=== PATIENT | female | born 1945 ===

== ENCOUNTER 2019-09-26 11:15 | Inpatient (IN) ==
[2019-09-26 14:55] LABS: Albumin 3.4 G/DL (3.4-5.0); Bilirubin,Total 0.4 MG/DL (0.2-1.0); Calcium 8.6 MG/DL (8.5-10.1); Total Protein 7.7 G/DL (6.4-8.3)
[2019-09-26] MEDS ORDERED: GLUCAGON 1 MG VIAL IM PRN (15:59)
[2019-09-26] MEDS ORDERED: ONDANSETRON 4 MG/2 ML VIAL IV PRN (15:59)
[2019-09-26] MEDS ORDERED: DEXTROSE 5% NACL 0.45% 1,000 ML IV SCH (16:00)
[2019-09-26] MEDS ORDERED: SODIUM POLYSTYRENE SULFATE 15 GM/60 ML BOTTLE PO STA (16:14)
[2019-09-26 16:26] LABS: Bilirubin,Urine Negative (Negative); Blood, Urine Negative (Negative); Glucose,Urine (UA) Negative (Negative); Ketones,Urine Negative (Negative); Mucus,Urine Occasional /LPF (Occasional); Nitrite,Urine Negative (Negative); Protein,Urine Negative; RBC,Urine 1 /HPF (0-4); Squamous Epithelial Cell,Urine Occasional /HPF (0-10); Urine Appearance CLEAR (Clear); Urine Color Yellow (Yellow); Urine Specific Gravity 1.016 (1.001-1.035); WBC,Urine 2 /HPF (0-6)
[2019-09-26 16:57] LABS: Troponin I 0.988 NG/ML (0.00-0.045)
[2019-09-26] MEDS: ASPIRIN EC 325 MG TABLET PO SCH (18:15)
[2019-09-26] MEDS: SODIUM BICARB INJ 50 MEQ in DEXTROSE 5% NACL 0.45% 1,000 ML IV SCH (18:45)
[2019-09-27 05:16] LABS: Basophils % 0.3 % (0.0-0.8); Eosinophils % 0.3 % (0.00-10.9); Hematocrit 34.1 VOL% (35.7-47.0); Hemoglobin 10.9 GM/DL (12.0-16.0); Immature Granulocytes % 0.3 %; Immature Granulocytes Absolute 0.01 #; Lymphocytes # 1.3 10*3/uL (1.4-4.0); Lymphocytes % 41.1 % (21.3-54.2); Mean Corpuscular Volume 91.7 FL (87-102); Mean Platelet Volume 11.6 FL (9.6-12.0); Monocytes % 13.9 % (1.7-12.7); Neutrophils % 44.1 % (38.7-73.9); Platelet Count 146 T/CUMM (130-400); Red Blood Count 3.72 MC/CUMM (3.8-5.5); Red Cell Distribution Width 12.9 % (9.3-17.3); White Blood Count 3.2 T/CUMM (4-12)
[2019-09-27 05:39] LABS: Ferritin 628.2 ng/ml (8-252)
[2019-09-27 05:43] LABS: Risk Ratio 4.29; VLDL CHOLESTEROL 26.6 MG/DL
[2019-09-27] MEDS: SODIUM BICARB INJ 50 MEQ in DEXTROSE 5% NACL 0.45% 1,000 ML IV SCH ×2 (05:45→16:19)
[2019-09-27 05:53] LABS: Calcium 8.3 MG/DL (8.5-10.1); Osmolality,Calculated 289.8 MOS/KG (273-304)
[2019-09-27 06:06] LABS: INR 1.2; PT Patient Result 12.5 SECS (9.8-11.9)
[2019-09-27 08:19] LABS: Eosinophils 1 % (0-10); Lymphocytes 36 % (20-55); Platelet Estimate Adequate; Segmented Neutrophils 48 % (50-85); Total Cells Counted 100
[2019-09-27 08:20] LABS: Hypochromasia 2+
[2019-09-27] MEDS: PANTOPRAZOLE 40 MG VIAL IV SCH (09:30)
[2019-09-27] MEDS: ASPIRIN EC 325 MG TABLET PO SCH (09:30)
[2019-09-27] MEDS ORDERED: ENOXAPARIN 30 MG/0.3 ML SYRINGE SUBCUT SCH (09:30)
[2019-09-27] MEDS ORDERED: AZITHROMYCIN INJ 250 MG in SODIUM CHLORIDE 0.9% 250 ML IV SCH (12:00)
[2019-09-27] MEDS: WARFARIN 2.5 MG TABLET PO SCH (17:40)
[2019-09-27] MEDS ORDERED: ZALEPLON 5 MG CAPSULE PO ONE (20:15)
[2019-09-27] MEDS: carvediloL 12.5 MG TABLET PO SCH (20:47)
[2019-09-27] MEDS: SIMVASTATIN 20 MG TABLET PO SCH (20:47)
[2019-09-27] MEDS: GABAPENTIN 300 MG CAPSULE PO SCH (20:47)
[2019-09-27] MEDS: ACETAMINOPHEN 500 MG TABLET PO PRN (20:47)
[2019-09-28] MEDS: SODIUM BICARB INJ 50 MEQ in DEXTROSE 5% NACL 0.45% 1,000 ML IV SCH ×2 (03:38→13:29)
[2019-09-28 05:23] LABS: Hematocrit 35.9 VOL% (35.7-47.0); Hemoglobin 11.7 GM/DL (12.0-16.0); Immature Granulocytes % 0.7 %; Immature Granulocytes Absolute 0.02 #; Lymphocytes # 1.1 10*3/uL (1.4-4.0); Lymphocytes % 36.9 % (21.3-54.2); Mean Corpuscular HGB Conc 32.6 GM/DL (32-36); Mean Corpuscular Volume 88.6 FL (87-102); Mean Platelet Volume 11.6 FL (9.6-12.0); Monocytes % 11.8 % (1.7-12.7); Neutrophils % 50.6 % (38.7-73.9); Platelet Count 146 T/CUMM (130-400); Red Blood Count 4.05 MC/CUMM (3.8-5.5); Red Cell Distribution Width 12.7 % (9.3-17.3); White Blood Count 3.1 T/CUMM (4-12)
[2019-09-28 05:29] LABS: INR 1.2; PT Patient Result 12.7 SECS (9.8-11.9)
[2019-09-28 05:34] LABS: Calcium 8.2 MG/DL (8.5-10.1); Osmolality,Calculated 286.7 MOS/KG (273-304)
[2019-09-28 05:37] LABS: Ferritin 508.4 ng/ml (8-252)
[2019-09-28] MEDS: PANTOPRAZOLE 40 MG VIAL IV SCH (08:55)
[2019-09-28] MEDS: amLODIPine 10 MG TABLET PO SCH (08:56)
[2019-09-28] MEDS: ZINC GLUCONATE 50 MG TABLET PO SCH (08:56)
[2019-09-28] MEDS: HEPARIN 5,000 UNIT/1 ML VIAL SUBCUT SCH ×2 (08:56→18:19)
[2019-09-28] MEDS: AZITHROMYCIN 250 MG TABLET PO SCH (08:56)
[2019-09-28] MEDS: ASPIRIN EC 325 MG TABLET PO SCH (08:56)
[2019-09-28] MEDS: carvediloL 12.5 MG TABLET PO SCH ×2 (08:56→20:56)
[2019-09-28] MEDS ORDERED: sitaGLIPtin 25 MG TABLET PO SCH (09:00)
[2019-09-28] MEDS ORDERED: INSULIN GLARGINE 100 UNIT/ML SUBCUT SCH (09:00)
[2019-09-28] MEDS ORDERED: WARFARIN 5 MG TABLET PO ONE (15:00)
[2019-09-28] MEDS: WARFARIN 2.5 MG TABLET PO SCH (18:19)
[2019-09-28] MEDS: GABAPENTIN 300 MG CAPSULE PO SCH (20:56)
[2019-09-28] MEDS: SIMVASTATIN 20 MG TABLET PO SCH (20:56)
[2019-09-28] MEDS: ACETAMINOPHEN 500 MG TABLET PO PRN (21:08)
[2019-09-29] MEDS: HEPARIN 5,000 UNIT/1 ML VIAL SUBCUT SCH ×3 (01:50→17:36)
[2019-09-29 05:45] LABS: Hematocrit 33.9 VOL% (35.7-47.0); Hemoglobin 11.1 GM/DL (12.0-16.0); Immature Granulocytes % 0.8 %; Immature Granulocytes Absolute 0.02 #; Lymphocytes # 1.3 10*3/uL (1.4-4.0); Lymphocytes % 47.2 % (21.3-54.2); Mean Corpuscular HGB Conc 32.7 GM/DL (32-36); Mean Corpuscular Volume 87.8 FL (87-102); Mean Platelet Volume 11.7 FL (9.6-12.0); Monocytes % 10.9 % (1.7-12.7); Neutrophils % 41.1 % (38.7-73.9); Platelet Count 128 T/CUMM (130-400); Red Blood Count 3.86 MC/CUMM (3.8-5.5); Red Cell Distribution Width 12.6 % (9.3-17.3); White Blood Count 2.7 T/CUMM (4-12)
[2019-09-29] MEDS: SODIUM BICARB INJ 50 MEQ in DEXTROSE 5% NACL 0.45% 1,000 ML IV SCH ×2 (05:50→17:36)
[2019-09-29 05:53] LABS: INR 1.3; PT Patient Result 13.5 SECS (9.8-11.9)
[2019-09-29 06:07] LABS: Calcium 7.9 MG/DL (8.5-10.1)
[2019-09-29 06:08] LABS: Hypochromasia 1+; Microcytosis Slight; Osmolality,Calculated 279.8 MOS/KG (273-304); Platelet Estimate Adequate
[2019-09-29 06:12] LABS: Ferritin 575.1 ng/ml (8-252)
[2019-09-29 06:26] LABS: Albumin 2.7 G/DL (3.4-5.0); Bilirubin,Direct 0.15 MG/DL (0.0-0.20); Bilirubin,Indirect 0.9 MG/DL (0.0-1.0); Total Protein 6.6 G/DL (6.4-8.3)
[2019-09-29] MEDS: ZINC GLUCONATE 50 MG TABLET PO SCH (09:29)
[2019-09-29] MEDS: AZITHROMYCIN 250 MG TABLET PO SCH (09:29)
[2019-09-29] MEDS: carvediloL 12.5 MG TABLET PO SCH ×2 (09:29→20:43)
[2019-09-29] MEDS: amLODIPine 10 MG TABLET PO SCH (09:29)
[2019-09-29] MEDS: ASPIRIN EC 325 MG TABLET PO SCH (09:29)
[2019-09-29] MEDS: WARFARIN 5 MG TABLET PO SCH (17:37)
[2019-09-29] MEDS: SIMVASTATIN 20 MG TABLET PO SCH (20:43)
[2019-09-29] MEDS: GABAPENTIN 300 MG CAPSULE PO SCH (20:43)
[2019-09-29] MEDS ORDERED: WARFARIN 3 MG TABLET PO ONE (21:00)
[2019-09-30] MEDS: HEPARIN 5,000 UNIT/1 ML VIAL SUBCUT SCH ×3 (00:33→18:05)
[2019-09-30] MEDS: SODIUM BICARB INJ 50 MEQ in DEXTROSE 5% NACL 0.45% 1,000 ML IV SCH ×2 (03:39→18:38)
[2019-09-30 06:23] LABS: Basophils % 0.3 % (0.0-0.8); Hematocrit 33.5 VOL% (35.7-47.0); Hemoglobin 10.6 GM/DL (12.0-16.0); Immature Granulocytes % 0.3 %; Immature Granulocytes Absolute 0.01 #; Lymphocytes # 1.1 10*3/uL (1.4-4.0); Lymphocytes % 37.9 % (21.3-54.2); Mean Corpuscular HGB Conc 31.6 GM/DL (32-36); Mean Corpuscular Volume 90.5 FL (87-102); Mean Platelet Volume 11.3 FL (9.6-12.0); Monocytes % 8.1 % (1.7-12.7); Neutrophils % 53.4 % (38.7-73.9); Platelet Count 140 T/CUMM (130-400); Red Cell Distribution Width 12.3 % (9.3-17.3)
[2019-09-30 06:39] LABS: INR 1.6
[2019-09-30 06:41] LABS: Calcium 7.6 MG/DL (8.5-10.1); Osmolality,Calculated 274.1 MOS/KG (273-304)
[2019-09-30 06:44] LABS: Ferritin 521.5 ng/ml (8-252)
[2019-09-30 07:09] LABS: Hypochromasia 1+; Lymphocytes 24 % (20-55); Microcytosis Slight; Platelet Estimate Normal; Segmented Neutrophils 68 % (50-85); Total Cells Counted 100
[2019-09-30] MEDS ORDERED: LORazepam 2 MG/1 ML VIAL IV ONE ×3 (08:06→15:00)
[2019-09-30] MEDS ORDERED: diphenhydrAMINE 50 MG/1 ML VIAL IV ONE ×2 (08:07→15:00)
[2019-09-30] MEDS: AZITHROMYCIN 250 MG TABLET PO SCH (09:30)
[2019-09-30] MEDS: PANTOPRAZOLE 40 MG TABLET PO SCH (09:30)
[2019-09-30] MEDS: ZINC GLUCONATE 50 MG TABLET PO SCH (09:30)
[2019-09-30] MEDS: ASPIRIN EC 325 MG TABLET PO SCH (09:30)
[2019-09-30] MEDS: amLODIPine 10 MG TABLET PO SCH (09:30)
[2019-09-30] MEDS: carvediloL 12.5 MG TABLET PO SCH ×2 (09:50→22:19)
[2019-09-30] MEDS ORDERED: TUBERCULIN SKIN TEST 0.1 ML SYRINGE INTRADERM ONE (15:00)
[2019-09-30] MEDS ORDERED: LORazepam 2 MG/1 ML VIAL ONE (15:02)
[2019-09-30] MEDS: WARFARIN 2.5 MG TABLET PO SCH (18:06)
[2019-09-30] MEDS ORDERED: WARFARIN 3 MG TABLET PO ONE (21:00)
[2019-09-30] MEDS: GABAPENTIN 300 MG CAPSULE PO SCH (22:19)
[2019-09-30] MEDS: SIMVASTATIN 20 MG TABLET PO SCH (22:19)
[2019-09-30] MEDS: ACETAMINOPHEN 500 MG TABLET PO PRN (22:20)
[2019-10-01] MEDS: SODIUM BICARB INJ 50 MEQ in DEXTROSE 5% NACL 0.45% 1,000 ML IV SCH ×2 (00:29→13:30)
[2019-10-01] MEDS: HEPARIN 5,000 UNIT/1 ML VIAL SUBCUT SCH ×2 (00:37→09:40)
[2019-10-01 05:03] LABS: Hemoglobin 10.3 GM/DL (12.0-16.0); Immature Granulocytes % 0.5 %; Immature Granulocytes Absolute 0.02 #; Lymphocytes # 1.3 10*3/uL (1.4-4.0); Mean Corpuscular HGB Conc 32.2 GM/DL (32-36); Mean Corpuscular Volume 89.1 FL (87-102); Mean Platelet Volume 11.7 FL (9.6-12.0); Neutrophils % 58.5 % (38.7-73.9); Platelet Count 149 T/CUMM (130-400); Red Blood Count 3.59 MC/CUMM (3.8-5.5); Red Cell Distribution Width 12.4 % (9.3-17.3); White Blood Count 3.7 T/CUMM (4-12)
[2019-10-01 05:15] LABS: INR 2.2; PT Patient Result 22.3 SECS (9.8-11.9)
[2019-10-01 05:19] LABS: Ferritin 510.8 ng/ml (8-252)
[2019-10-01 05:28] LABS: Hypochromasia 1+; Lymphocytes 27 % (20-55); Platelet Estimate Adequate; Segmented Neutrophils 70 % (50-85); Total Cells Counted 100
[2019-10-01 05:29] LABS: Microcytosis Slight
[2019-10-01 05:55] LABS: Calcium 7.4 MG/DL (8.5-10.1); Osmolality,Calculated 278.8 MOS/KG (273-304)
[2019-10-01 08:57] LABS: ABG Base Excess 2.4 MMOL/L (-2.5-2.5); ABG HCO3 26.3 MMOL/L (20-26); ABG Oxygen Saturation 83.9 % (95-100); ABG PCO2 32.4 MM HG (35-48); ABG PH 7.497 (7.35-7.45); ABG PO2 47.4 MM HG (80-95); ABG TCO2 22.6 MMOL/L (23-27)
[2019-10-01] MEDS: AZITHROMYCIN 250 MG TABLET PO SCH (09:41)
[2019-10-01] MEDS: PANTOPRAZOLE 40 MG TABLET PO SCH (09:41)
[2019-10-01] MEDS: amLODIPine 10 MG TABLET PO SCH (09:41)
[2019-10-01] MEDS: carvediloL 12.5 MG TABLET PO SCH ×2 (09:41→20:15)
[2019-10-01] MEDS: ASPIRIN EC 325 MG TABLET PO SCH (09:41)
[2019-10-01] MEDS: ZINC GLUCONATE 50 MG TABLET PO SCH (09:41)
[2019-10-01] MEDS ORDERED: FUROSEMIDE 40 MG/4 ML VIAL IV ONE (09:49)
[2019-10-01 12:07] LABS: ABG Oxygen Saturation 89.6 % (95-100); ABG PCO2 35.4 MM HG (35-48); ABG PO2 55.9 MM HG (80-95); ABG TCO2 23.8 MMOL/L (23-27)
[2019-10-01 16:12] LABS: Calcium 8.1 MG/DL (8.5-10.1); Osmolality,Calculated 271.4 MOS/KG (273-304)
[2019-10-01] MEDS: WARFARIN 5 MG TABLET PO SCH (17:45)
[2019-10-01] MEDS: GABAPENTIN 300 MG CAPSULE PO SCH (20:15)
[2019-10-01] MEDS: SIMVASTATIN 20 MG TABLET PO SCH (20:15)
[2019-10-01] MEDS: ACETAMINOPHEN 500 MG TABLET PO PRN (23:03)
[2019-10-02] MEDS: ACETAMINOPHEN 500 MG TABLET PO PRN (04:26)
[2019-10-02 04:34] LABS: Basophils % 0.2 % (0.0-0.8); Eosinophils % 0.2 % (0.00-10.9); Hematocrit 30.8 VOL% (35.7-47.0); Hemoglobin 9.9 GM/DL (12.0-16.0); Immature Granulocytes Absolute 0.05 #; Lymphocytes # 1.2 10*3/uL (1.4-4.0); Lymphocytes % 22.6 % (21.3-54.2); Mean Corpuscular HGB Conc 32.1 GM/DL (32-36); Mean Corpuscular Volume 90.1 FL (87-102); Mean Platelet Volume 11.1 FL (9.6-12.0); Monocytes % 6.1 % (1.7-12.7); Neutrophils % 69.9 % (38.7-73.9); Platelet Count 168 T/CUMM (130-400); Red Blood Count 3.42 MC/CUMM (3.8-5.5); Red Cell Distribution Width 12.3 % (9.3-17.3); White Blood Count 5.3 T/CUMM (4-12)
[2019-10-02 04:41] LABS: ABG Base Excess 4.7 MMOL/L (-2.5-2.5); ABG HCO3 28.1 MMOL/L (20-26); ABG Oxygen Saturation 69.4 % (95-100); ABG PCO2 35.1 MM HG (35-48); ABG TCO2 25.1 MMOL/L (23-27); Allen Test Positive; Pt O2 Delivery Device Other
[2019-10-02 04:43] LABS: ABG PH 7.506 (7.35-7.45); ABG PO2 36.5 MM HG (80-95)
[2019-10-02 04:44] LABS: Calcium 7.8 MG/DL (8.5-10.1)
[2019-10-02 04:45] LABS: INR 2.7; PT Patient Result 27.4 SECS (9.8-11.9)
[2019-10-02 05:12] LABS: Ferritin 435.7 ng/ml (8-252)
[2019-10-02 06:06] LABS: ABG Base Excess 3.9 MMOL/L (-2.5-2.5); ABG HCO3 27.7 MMOL/L (20-26); ABG Oxygen Saturation 84.4 % (95-100); ABG PCO2 32.7 MM HG (35-48); ABG PH 7.518 (7.35-7.45); ABG PO2 47.4 MM HG (80-95); ABG TCO2 24.1 MMOL/L (23-27); Allen Test Positive; Pt O2 Delivery Device Other
[2019-10-02 07:04] LABS: Anisocytosis 1+; Hypochromasia 2+; Microcytosis Slight; Polychromasia Slight
[2019-10-02 07:05] LABS: Macrocytosis Slight; Platelet Estimate Adequate
[2019-10-02] MEDS: ASPIRIN EC 325 MG TABLET PO SCH (09:05)
[2019-10-02] MEDS: PANTOPRAZOLE 40 MG TABLET PO SCH (09:05)
[2019-10-02] MEDS: amLODIPine 10 MG TABLET PO SCH (09:05)
[2019-10-02] MEDS: ZINC GLUCONATE 50 MG TABLET PO SCH (09:05)
[2019-10-02] MEDS: carvediloL 12.5 MG TABLET PO SCH ×2 (09:05→21:19)
[2019-10-02] MEDS: SODIUM BICARB INJ 50 MEQ in DEXTROSE 5% NACL 0.45% 1,000 ML IV SCH ×2 (09:06→12:00)
[2019-10-02] MEDS ORDERED: MAGNESIUM SULF RIDER 4 GM in PREMIX 1 EACH IV ONE (09:26)
[2019-10-02] MEDS: ALPRAZolam 0.25 MG TABLET PO PRN ×2 (10:49→18:12)
[2019-10-02 11:35] LABS: Bacteria,Urine Occasional /HPF (Few); Bilirubin,Urine Negative (Negative); Blood, Urine Small mg/dL (Negative); Glucose,Urine (UA) Negative (Negative); Ketones,Urine Negative (Negative); Nitrite,Urine Negative (Negative); Protein,Urine 100 MG/DL; RBC,Urine 1 /HPF (0-4); Squamous Epithelial Cell,Urine Occasional /HPF (0-10); Urine Appearance CLEAR (Clear); Urine Color Yellow (Yellow); Urine Specific Gravity 1.014 (1.001-1.035); WBC,Urine 19 /HPF (0-6)
[2019-10-02] MEDS: DEXAMETHASONE 4 MG/1 ML VIAL IV SCH (17:40)
[2019-10-02] MEDS ORDERED: WARFARIN 2.5 MG TABLET PO SCH (18:00)
[2019-10-02] MEDS ORDERED: MIDAZOLAM 100 MG in SODIUM CHLORIDE 0.9% 80 ML IV PRN (18:22)
[2019-10-02] MEDS ORDERED: ETOMIDATE 20 MG/10 ML VIAL IV ONE ×2 (18:26→18:38)
[2019-10-02] MEDS ORDERED: SUCCINYLCHOLINE 200 MG/10 ML VIAL ONE (18:27)
[2019-10-02] MEDS ORDERED: SUCCINYLCHOLINE 200 MG/10 ML VIAL IV ONE (19:11)
[2019-10-02 20:18] LABS: ABG Base Excess 1.7 MMOL/L (-2.5-2.5); ABG Oxygen Saturation 99.7 % (95-100); ABG PH 7.456 (7.35-7.45); ABG TCO2 23.2 MMOL/L (23-27)
[2019-10-02] MEDS: SIMVASTATIN 20 MG TABLET PO SCH (21:19)
[2019-10-02] MEDS: GABAPENTIN 300 MG CAPSULE PO SCH (21:19)
[2019-10-03] MEDS: SODIUM BICARB INJ 50 MEQ in DEXTROSE 5% NACL 0.45% 1,000 ML IV SCH (04:53)
[2019-10-03 05:37] LABS: ABG Base Excess 0.7 MMOL/L (-2.5-2.5); ABG HCO3 23.3 MMOL/L (20-26); ABG Oxygen Saturation 92.1 % (95-100); ABG PCO2 30.1 MM HG (35-48); ABG PH 7.506 (7.35-7.45); ABG PO2 64.6 MM HG (80-95); ABG TCO2 24.2 MMOL/L (23-27); Allen Test Positive; Pt O2 Delivery Device Ventilator
[2019-10-03 05:46] LABS: Hematocrit 29.5 VOL% (35.7-47.0); Hemoglobin 9.1 GM/DL (12.0-16.0); Immature Granulocytes % 0.9 %; Immature Granulocytes Absolute 0.07 #; Lymphocytes # 0.7 10*3/uL (1.4-4.0); Lymphocytes % 8.6 % (21.3-54.2); Mean Corpuscular HGB Conc 30.8 GM/DL (32-36); Mean Corpuscular Volume 92.5 FL (87-102); Mean Platelet Volume 12.2 FL (9.6-12.0); Monocytes % 4.6 % (1.7-12.7); Neutrophils % 85.9 % (38.7-73.9); Platelet Count 182 T/CUMM (130-400); Red Blood Count 3.19 MC/CUMM (3.8-5.5); Red Cell Distribution Width 12.4 % (9.3-17.3)
[2019-10-03 05:57] LABS: INR 3.3; PT Patient Result 33.5 SECS (9.8-11.9)
[2019-10-03 06:00] LABS: Calcium 7.8 MG/DL (8.5-10.1); Osmolality,Calculated 285.4 MOS/KG (273-304)
[2019-10-03] MEDS: ASPIRIN CHEW 81 MG TABLET PO SCH (08:36)
[2019-10-03] MEDS: carvediloL 12.5 MG TABLET PO SCH ×2 (08:36→20:38)
[2019-10-03] MEDS: ZINC GLUCONATE 50 MG TABLET PO SCH (08:36)
[2019-10-03] MEDS: PANTOPRAZOLE 40 MG VIAL IV SCH (08:38)
[2019-10-03] MEDS: DEXAMETHASONE 4 MG/1 ML VIAL IV SCH (08:40)
[2019-10-03] MEDS: amLODIPine 10 MG TABLET PO SCH (12:47)
[2019-10-03] MEDS: INSULIN LISPRO 100 UNIT/ML SUBCUT SCH ×2 (14:07→18:18)
[2019-10-03] MEDS ORDERED: WARFARIN 5 MG TABLET PO SCH (18:00)
[2019-10-03] MEDS: GABAPENTIN 300 MG CAPSULE PO SCH (20:38)
[2019-10-03] MEDS: SIMVASTATIN 20 MG TABLET PO SCH (20:38)
[2019-10-04] MEDS: INSULIN LISPRO 100 UNIT/ML SUBCUT SCH ×4 (01:01→18:14)
[2019-10-04 05:01] LABS: Calcium 8.5 MG/DL (8.5-10.1); Osmolality,Calculated 288.5 MOS/KG (273-304)
[2019-10-04 05:20] LABS: Basophils % 0.1 % (0.0-0.8); Immature Granulocytes % 1.2 %; Lymphocytes # 0.7 10*3/uL (1.4-4.0); Lymphocytes % 8.3 % (21.3-54.2); Mean Corpuscular HGB Conc 32.1 GM/DL (32-36); Mean Corpuscular Volume 89.5 FL (87-102); Monocytes % 4.5 % (1.7-12.7); NRBC # 0.02 10*3/uL; Neutrophils % 85.9 % (38.7-73.9); Platelet Count 205 T/CUMM (130-400); Red Blood Count 3.13 MC/CUMM (3.8-5.5); Red Cell Distribution Width 12.4 % (9.3-17.3); White Blood Count 8.5 T/CUMM (4-12)
[2019-10-04 05:33] LABS: INR 4.1; PT Patient Result 40.4 SECS (9.8-11.9)
[2019-10-04 05:39] LABS: ABG Base Excess 1.4 MMOL/L (-2.5-2.5); ABG HCO3 25.5 MMOL/L (20-26); ABG Oxygen Saturation 86.8 % (95-100); ABG PCO2 33.2 MM HG (35-48); ABG PH 7.479 (7.35-7.45); ABG PO2 52.7 MM HG (80-95); ABG TCO2 22.7 MMOL/L (23-27); Allen Test Positive; Pt O2 Delivery Device Ventilator
[2019-10-04 05:45] LABS: Hypochromasia 1+; Microcytosis Slight; Platelet Estimate Adequate
[2019-10-04] MEDS: ASPIRIN CHEW 81 MG TABLET PO SCH (08:44)
[2019-10-04] MEDS: ZINC GLUCONATE 50 MG TABLET PO SCH (08:45)
[2019-10-04] MEDS: carvediloL 12.5 MG TABLET PO SCH ×2 (08:45→21:40)
[2019-10-04] MEDS: INSULIN GLARGINE 100 UNIT/ML SUBCUT SCH ×2 (08:45→21:50)
[2019-10-04] MEDS: PANTOPRAZOLE 40 MG VIAL IV SCH (08:49)
[2019-10-04] MEDS: DEXAMETHASONE 4 MG/1 ML VIAL IV SCH (09:25)
[2019-10-04] MEDS: cefTRIAXone 1,000 MG in SYRINGE 1 EACH IV SCH (10:47)
[2019-10-04] MEDS ORDERED: LEVOFLOXACIN INJ 750 MG in PREMIX 1 EACH IV ONE (11:00)
[2019-10-04] MEDS: amLODIPine 10 MG TABLET PO SCH (11:16)
[2019-10-04] MEDS: GABAPENTIN 300 MG CAPSULE PO SCH (21:50)
[2019-10-04] MEDS: SIMVASTATIN 20 MG TABLET PO SCH (21:50)
[2019-10-05] MEDS: INSULIN LISPRO 100 UNIT/ML SUBCUT SCH ×4 (02:52→18:25)
[2019-10-05 04:46] LABS: ABG Base Excess 0.1 MMOL/L (-2.5-2.5); ABG HCO3 23.2 MMOL/L (20-26); ABG Oxygen Saturation 96.5 % (95-100); ABG PCO2 31.7 MM HG (35-48); ABG PH 7.482 (7.35-7.45); ABG PO2 86.6 MM HG (80-95); ABG TCO2 24.2 MMOL/L (23-27)
[2019-10-05 04:55] LABS: Basophils % 0.1 % (0.0-0.8); Hematocrit 26.5 VOL% (35.7-47.0); Hemoglobin 8.3 GM/DL (12.0-16.0); Immature Granulocytes % 5.4 %; Immature Granulocytes Absolute 0.48 #; Lymphocytes # 0.6 10*3/uL (1.4-4.0); Lymphocytes % 6.6 % (21.3-54.2); Mean Corpuscular HGB Conc 31.3 GM/DL (32-36); Mean Corpuscular Volume 91.7 FL (87-102); Mean Platelet Volume 11.6 FL (9.6-12.0); Monocytes % 4.9 % (1.7-12.7); NRBC # 0.12 10*3/uL; Platelet Count 250 T/CUMM (130-400); Red Blood Count 2.89 MC/CUMM (3.8-5.5); Red Cell Distribution Width 12.2 % (9.3-17.3); White Blood Count 8.9 T/CUMM (4-12)
[2019-10-05 05:16] LABS: Band Neutrophils 1 % (0-10); Hypochromasia 1+; Lymphocytes 8 % (20-55); Microcytosis 1+; Nucleated Red Blood Cells 2 (0-5); Platelet Estimate Adequate; Segmented Neutrophils 89 % (50-85); Total Cells Counted 100
[2019-10-05 05:20] LABS: Calcium 8.5 MG/DL (8.5-10.1); Osmolality,Calculated 293.5 MOS/KG (273-304)
[2019-10-05] MEDS: DEXAMETHASONE 4 MG/1 ML VIAL IV SCH (08:53)
[2019-10-05] MEDS: INSULIN GLARGINE 100 UNIT/ML SUBCUT SCH ×2 (08:54→20:40)
[2019-10-05] MEDS: PANTOPRAZOLE 40 MG VIAL IV SCH (08:54)
[2019-10-05] MEDS: cefTRIAXone 1,000 MG in SYRINGE 1 EACH IV SCH ×2 (08:54→12:20)
[2019-10-05] MEDS: ASPIRIN CHEW 81 MG TABLET PO SCH (08:55)
[2019-10-05] MEDS: ZINC GLUCONATE 50 MG TABLET PO SCH (08:55)
[2019-10-05] MEDS: amLODIPine 10 MG TABLET PO SCH (08:55)
[2019-10-05] MEDS: carvediloL 12.5 MG TABLET PO SCH ×2 (08:55→20:40)
[2019-10-05 13:05] LABS: INR 4.7; PT Patient Result 46.5 SECS (9.8-11.9)
[2019-10-05] MEDS: GABAPENTIN 300 MG CAPSULE PO SCH (20:40)
[2019-10-05] MEDS: SIMVASTATIN 20 MG TABLET PO SCH (20:40)
[2019-10-06] MEDS: INSULIN LISPRO 100 UNIT/ML SUBCUT SCH ×4 (00:41→17:18)
[2019-10-06 04:55] LABS: ABG Base Excess 0.1 MMOL/L (-2.5-2.5); ABG HCO3 24.5 MMOL/L (20-26); ABG Oxygen Saturation 93.7 % (95-100); ABG PCO2 35.8 MM HG (35-48); ABG PH 7.436 (7.35-7.45); ABG TCO2 22.4 MMOL/L (23-27); Allen Test Positive; Pt O2 Delivery Device Ventilator
[2019-10-06 04:58] LABS: Basophils % 0.1 % (0.0-0.8); Hemoglobin 7.9 GM/DL (12.0-16.0); Immature Granulocytes % 5.5 %; Immature Granulocytes Absolute 0.48 #; Lymphocytes # 0.7 10*3/uL (1.4-4.0); Lymphocytes % 7.4 % (21.3-54.2); Mean Corpuscular HGB Conc 31.6 GM/DL (32-36); Mean Corpuscular Volume 90.6 FL (87-102); Mean Platelet Volume 11.6 FL (9.6-12.0); Monocytes % 5.5 % (1.7-12.7); NRBC # 0.07 10*3/uL; Neutrophils % 81.5 % (38.7-73.9); Platelet Count 236 T/CUMM (130-400); Red Blood Count 2.76 MC/CUMM (3.8-5.5); Red Cell Distribution Width 12.6 % (9.3-17.3); White Blood Count 8.7 T/CUMM (4-12)
[2019-10-06 05:18] LABS: PT Patient Result 39.8 SECS (9.8-11.9)
[2019-10-06 05:24] LABS: Band Neutrophils 3 % (0-10); Hypochromasia 1+; Lymphocytes 10 % (20-55); Platelet Estimate Adequate; Segmented Neutrophils 84 % (50-85); Total Cells Counted 100
[2019-10-06 05:25] LABS: Microcytosis Slight
[2019-10-06 05:26] LABS: Albumin 1.8 G/DL (3.4-5.0); Bilirubin,Direct 0.42 MG/DL (0.0-0.20); Bilirubin,Indirect 1.4 MG/DL (0.0-1.0); Bilirubin,Total 1.8 MG/DL (0.2-1.0); Total Protein 6.3 G/DL (6.4-8.3)
[2019-10-06 05:29] LABS: Osmolality,Calculated 306.2 MOS/KG (273-304)
[2019-10-06] MEDS: ASPIRIN CHEW 81 MG TABLET PO SCH (08:18)
[2019-10-06] MEDS: INSULIN GLARGINE 100 UNIT/ML SUBCUT SCH ×2 (08:18→20:30)
[2019-10-06] MEDS: amLODIPine 10 MG TABLET PO SCH (08:18)
[2019-10-06] MEDS: ZINC GLUCONATE 50 MG TABLET PO SCH (08:18)
[2019-10-06] MEDS: carvediloL 6.25 MG TABLET PO SCH ×2 (08:18→20:30)
[2019-10-06] MEDS: DEXAMETHASONE 4 MG/1 ML VIAL IV SCH (08:19)
[2019-10-06] MEDS: PANTOPRAZOLE 40 MG VIAL IV SCH (08:19)
[2019-10-06] MEDS ORDERED: LEVOFLOXACIN INJ 500 MG in PREMIX 1 EACH IV SCH (11:00)
[2019-10-06] MEDS: cefTRIAXone 1,000 MG in SYRINGE 1 EACH IV SCH (11:16)
[2019-10-06] MEDS: GABAPENTIN 50 MG/ML 30 ML/BOTTLE PO SCH (20:30)
[2019-10-07] MEDS: INSULIN LISPRO 100 UNIT/ML SUBCUT SCH ×4 (00:15→17:35)
[2019-10-07 05:08] LABS: Allen Test Positive; Pt O2 Delivery Device Ventilator
[2019-10-07 05:13] LABS: ABG Base Excess 0.4 MMOL/L (-2.5-2.5); ABG HCO3 24.7 MMOL/L (20-26); ABG Oxygen Saturation 94.3 % (95-100); ABG PCO2 34.8 MM HG (35-48); ABG PH 7.448 (7.35-7.45); ABG PO2 67.4 MM HG (80-95); ABG TCO2 22.4 MMOL/L (23-27)
[2019-10-07 05:32] LABS: Basophils % 0.2 % (0.0-0.8); Eosinophils % 0.1 % (0.00-10.9); Hematocrit 25.9 VOL% (35.7-47.0); Immature Granulocytes % 7.6 %; Immature Granulocytes Absolute 0.81 #; Lymphocytes # 0.7 10*3/uL (1.4-4.0); Lymphocytes % 6.3 % (21.3-54.2); Mean Corpuscular HGB Conc 30.9 GM/DL (32-36); Mean Corpuscular Volume 93.2 FL (87-102); Mean Platelet Volume 11.5 FL (9.6-12.0); NRBC # 0.05 10*3/uL; Neutrophils % 79.8 % (38.7-73.9); Platelet Count 293 T/CUMM (130-400); Red Blood Count 2.78 MC/CUMM (3.8-5.5); Red Cell Distribution Width 12.7 % (9.3-17.3); White Blood Count 10.6 T/CUMM (4-12)
[2019-10-07 05:44] LABS: INR 2.8; PT Patient Result 28.8 SECS (9.8-11.9)
[2019-10-07 05:45] LABS: Calcium 8.5 MG/DL (8.5-10.1); Osmolality,Calculated 310.1 MOS/KG (273-304)
[2019-10-07 05:58] LABS: Band Neutrophils 3 % (0-10); Hypochromasia 1+; Lymphocytes 7 % (20-55); Microcytosis 1+; Myelocytes 1 %; Platelet Estimate Adequate; Segmented Neutrophils 85 % (50-85); Total Cells Counted 100
[2019-10-07] MEDS: INSULIN GLARGINE 100 UNIT/ML SUBCUT SCH ×2 (08:37→21:41)
[2019-10-07] MEDS: carvediloL 6.25 MG TABLET PO SCH ×2 (08:37→21:41)
[2019-10-07] MEDS: ZINC GLUCONATE 50 MG TABLET PO SCH (08:37)
[2019-10-07] MEDS: amLODIPine 10 MG TABLET PO SCH (08:37)
[2019-10-07] MEDS: ASPIRIN CHEW 81 MG TABLET PO SCH (08:37)
[2019-10-07] MEDS: PANTOPRAZOLE 40 MG VIAL IV SCH (08:38)
[2019-10-07] MEDS: DEXAMETHASONE 4 MG/1 ML VIAL IV SCH (08:38)
[2019-10-07] MEDS: cefTRIAXone 1,000 MG in SYRINGE 1 EACH IV SCH (11:13)
[2019-10-07 12:17] LABS: % Iron Saturation 23.5 % (18-50)
[2019-10-07] MEDS: GABAPENTIN 50 MG/ML 30 ML/BOTTLE PO SCH (21:41)
[2019-10-08] MEDS: INSULIN LISPRO 100 UNIT/ML SUBCUT SCH ×4 (00:06→17:38)
[2019-10-08 03:55] LABS: Basophils % 0.3 % (0.0-0.8); Eosinophils % 0.4 % (0.00-10.9); Hematocrit 25.7 VOL% (35.7-47.0); Hemoglobin 8.1 GM/DL (12.0-16.0); Immature Granulocytes % 12.1 %; Immature Granulocytes Absolute 1.31 #; Lymphocytes # 0.7 10*3/uL (1.4-4.0); Lymphocytes % 6.8 % (21.3-54.2); Mean Corpuscular HGB Conc 31.5 GM/DL (32-36); Mean Corpuscular Volume 91.5 FL (87-102); Mean Platelet Volume 11.2 FL (9.6-12.0); Monocytes % 7.5 % (1.7-12.7); NRBC # 0.05 10*3/uL; Neutrophils % 72.9 % (38.7-73.9); Platelet Count 302 T/CUMM (130-400); Red Blood Count 2.81 MC/CUMM (3.8-5.5); Red Cell Distribution Width 12.8 % (9.3-17.3); White Blood Count 10.9 T/CUMM (4-12)
[2019-10-08 04:03] LABS: ABG Base Excess -0.4 MMOL/L (-2.5-2.5); ABG HCO3 23.1 MMOL/L (20-26); ABG PCO2 34.7 MM HG (35-48); ABG PH 7.441 (7.35-7.45); ABG PO2 85.4 MM HG (80-95); ABG TCO2 24.2 MMOL/L (23-27)
[2019-10-08 04:08] LABS: ABG Oxygen Saturation 96.8 % (95-100)
[2019-10-08 04:19] LABS: Band Neutrophils 4 % (0-10); Calcium 8.4 MG/DL (8.5-10.1); Eosinophils 1 % (0-10); Hypochromasia 1+; Lymphocytes 6 % (20-55); Osmolality,Calculated 314.7 MOS/KG (273-304); Segmented Neutrophils 83 % (50-85); Total Cells Counted 100
[2019-10-08 04:20] LABS: Microcytosis 1+; Ovalocytes Slight
[2019-10-08] MEDS: ZINC GLUCONATE 50 MG TABLET PO SCH (08:38)
[2019-10-08] MEDS: ASPIRIN CHEW 81 MG TABLET PO SCH (08:38)
[2019-10-08] MEDS: carvediloL 6.25 MG TABLET PO SCH ×2 (08:38→20:58)
[2019-10-08] MEDS: PANTOPRAZOLE 40 MG VIAL IV SCH (08:39)
[2019-10-08] MEDS: DEXAMETHASONE 4 MG/1 ML VIAL IV SCH (08:39)
[2019-10-08] MEDS: INSULIN GLARGINE 100 UNIT/ML SUBCUT SCH ×2 (08:39→20:58)
[2019-10-08] MEDS: amLODIPine 10 MG TABLET PO SCH (09:06)
[2019-10-08] MEDS ORDERED: BISACODYL 5 MG TABLET PER TUBE ONE (09:30)
[2019-10-08] MEDS: cefTRIAXone 1,000 MG in SYRINGE 1 EACH IV SCH (09:36)
[2019-10-08] MEDS: POLYETHYLENE GLYCOL POWDER 17 GM PACK PER TUBE SCH ×2 (11:50→20:58)
[2019-10-08] MEDS ORDERED: SODIUM POLYSTYRENE SULFATE 15 GM/60 ML BOTTLE PO ONE (16:17)
[2019-10-08] MEDS: GABAPENTIN 50 MG/ML 30 ML/BOTTLE PO SCH (20:58)
[2019-10-09] MEDS: INSULIN LISPRO 100 UNIT/ML SUBCUT SCH ×4 (00:57→17:19)
[2019-10-09 02:55] LABS: ABG Base Excess 1.7 MMOL/L (-2.5-2.5); ABG HCO3 25.9 MMOL/L (20-26); ABG Oxygen Saturation 96.8 % (95-100); ABG PCO2 38.9 MM HG (35-48); ABG PH 7.432 (7.35-7.45); ABG PO2 83.5 MM HG (80-95); ABG TCO2 23.8 MMOL/L (23-27)
[2019-10-09 04:23] LABS: Bilirubin,Total 0.8 MG/DL (0.2-1.0); Calcium 8.9 MG/DL (8.5-10.1); Osmolality,Calculated 318.1 MOS/KG (273-304); Total Protein 6.5 G/DL (6.4-8.3)
[2019-10-09 04:30] LABS: Basophils % 0.2 % (0.0-0.8); Eosinophils # 0.1 10*3/uL (0.0-0.87); Eosinophils % 0.5 % (0.00-10.9); Hematocrit 26.5 VOL% (35.7-47.0); Immature Granulocytes % 12.3 %; Immature Granulocytes Absolute 1.33 #; Lymphocytes # 0.8 10*3/uL (1.4-4.0); Lymphocytes % 7.5 % (21.3-54.2); Mean Corpuscular HGB Conc 30.2 GM/DL (32-36); Mean Corpuscular Volume 94.6 FL (87-102); Mean Platelet Volume 11.1 FL (9.6-12.0); Monocytes % 7.9 % (1.7-12.7); NRBC # 0.03 10*3/uL; Neutrophils % 71.6 % (38.7-73.9); Platelet Count 324 T/CUMM (130-400); Red Cell Distribution Width 13.2 % (9.3-17.3); White Blood Count 10.8 T/CUMM (4-12)
[2019-10-09 04:34] LABS: Calcium 8.5 MG/DL (8.5-10.1); Osmolality,Calculated 323.8 MOS/KG (273-304)
[2019-10-09] MEDS: DEXTROSE 50% 25 GM/50 ML VIAL IV PRN ×2 (04:36→09:08)
[2019-10-09 04:53] LABS: INR 1.6; PT Patient Result 16.6 SECS (9.8-11.9)
[2019-10-09 04:57] LABS: Ferritin 1075.7 ng/ml (8-252)
[2019-10-09 05:03] LABS: Bilirubin,Direct 0.29 MG/DL (0.0-0.20); Bilirubin,Indirect 0.8 MG/DL (0.0-1.0); Bilirubin,Total 1.1 MG/DL (0.2-1.0); Total Protein 6.6 G/DL (6.4-8.3)
[2019-10-09 06:10] LABS: Band Neutrophils 1 % (0-10); Hypochromasia 1+; Lymphocytes 10 % (20-55); Microcytosis 1+; Myelocytes 1 %; Segmented Neutrophils 82 % (50-85); Total Cells Counted 100
[2019-10-09 06:11] LABS: Polychromasia Slight
[2019-10-09] MEDS: carvediloL 6.25 MG TABLET PO SCH ×2 (08:44→20:23)
[2019-10-09] MEDS: amLODIPine 10 MG TABLET PO SCH (08:44)
[2019-10-09] MEDS ORDERED: AMIODARONE 200 MG TABLET PO ONE (08:53)
[2019-10-09] MEDS: DEXAMETHASONE 4 MG/1 ML VIAL IV SCH (08:55)
[2019-10-09] MEDS: INSULIN GLARGINE 100 UNIT/ML SUBCUT SCH ×2 (08:55→15:24)
[2019-10-09] MEDS: ASPIRIN CHEW 81 MG TABLET PO SCH (08:55)
[2019-10-09] MEDS: POLYETHYLENE GLYCOL POWDER 17 GM PACK PER TUBE SCH (08:56)
[2019-10-09] MEDS: PANTOPRAZOLE 40 MG VIAL IV SCH (08:56)
[2019-10-09 10:37] LABS: Albumin 1.8 G/DL (3.4-5.0); Bilirubin,Direct 0.33 MG/DL (0.0-0.20); Bilirubin,Indirect 0.2 MG/DL (0.0-1.0); Bilirubin,Total 0.5 MG/DL (0.2-1.0); Total Protein 5.6 G/DL (6.4-8.3)
[2019-10-09] MEDS ORDERED: INSULIN GLARGINE 100 UNIT/ML SUBCUT SCH (13:07)
[2019-10-09] MEDS: GABAPENTIN 50 MG/ML 30 ML/BOTTLE PO SCH (20:23)
[2019-10-09] MEDS: AMIODARONE 200 MG TABLET PO SCH (20:23)
[2019-10-09] MEDS: APIXABAN 2.5 MG TABLET PO SCH (20:23)
[2019-10-10] MEDS: INSULIN LISPRO 100 UNIT/ML SUBCUT SCH ×4 (01:06→17:21)
[2019-10-10 04:10] LABS: ABG HCO3 24.6 MMOL/L (20-26); ABG Oxygen Saturation 92.5 % (95-100); ABG PCO2 35.2 MM HG (35-48); ABG PH 7.463 (7.35-7.45); ABG PO2 65.8 MM HG (80-95); ABG TCO2 25.7 MMOL/L (23-27); Allen Test Positive; Pt O2 Delivery Device Ventilator
[2019-10-10 04:56] LABS: Basophils % 0.1 % (0.0-0.8); Eosinophils # 0.1 10*3/uL (0.0-0.87); Eosinophils % 0.7 % (0.00-10.9); Hematocrit 25.1 VOL% (35.7-47.0); Hemoglobin 7.8 GM/DL (12.0-16.0); Immature Granulocytes % 8.5 %; Immature Granulocytes Absolute 0.91 #; Lymphocytes # 0.7 10*3/uL (1.4-4.0); Lymphocytes % 6.2 % (21.3-54.2); Mean Corpuscular HGB Conc 31.1 GM/DL (32-36); Mean Corpuscular Volume 91.6 FL (87-102); Mean Platelet Volume 11.2 FL (9.6-12.0); Monocytes % 7.7 % (1.7-12.7); Neutrophils % 76.8 % (38.7-73.9); Platelet Count 298 T/CUMM (130-400); Red Blood Count 2.74 MC/CUMM (3.8-5.5); Red Cell Distribution Width 13.3 % (9.3-17.3); White Blood Count 10.7 T/CUMM (4-12)
[2019-10-10 05:18] LABS: Ferritin 924.3 ng/ml (8-252)
[2019-10-10 05:58] LABS: Band Neutrophils 1 % (0-10); Eosinophils 1 % (0-10); Lymphocytes 5 % (20-55); Metamyelocytes 3 %; Segmented Neutrophils 85 % (50-85); Total Cells Counted 100
[2019-10-10 05:59] LABS: Hypochromasia Slight; Platelet Estimate Normal
[2019-10-10] MEDS ORDERED: DEXTROSE 10% 250 ML BAG IV PRN (06:03)
[2019-10-10 06:09] LABS: Hepatitis B Core IgM Quant 0.23 Index; Hepatitis B Surface Ag Quant < 0.10 Index; Hepatitis B Surface Ag Result Negative (Negative); Hepatitis C Virus Ab Result Negative (Negative)
[2019-10-10] MEDS: ASPIRIN CHEW 81 MG TABLET PO SCH (08:14)
[2019-10-10] MEDS: APIXABAN 2.5 MG TABLET PO SCH ×2 (08:14→20:30)
[2019-10-10] MEDS: AMIODARONE 200 MG TABLET PO SCH ×2 (08:15→20:30)
[2019-10-10] MEDS: carvediloL 6.25 MG TABLET PO SCH ×2 (08:15→20:30)
[2019-10-10] MEDS: DEXAMETHASONE 4 MG/1 ML VIAL IV SCH (08:16)
[2019-10-10] MEDS: PANTOPRAZOLE 40 MG VIAL IV SCH (08:16)
[2019-10-10] MEDS ORDERED: DEXTROSE 5% NACL 0.45% 1,000 ML IV SCH (09:30)
[2019-10-10 10:11] LABS: Calcium 8.4 MG/DL (8.5-10.1)
[2019-10-10] MEDS: GABAPENTIN 50 MG/ML 30 ML/BOTTLE PO SCH (20:30)
[2019-10-11] MEDS: INSULIN LISPRO 100 UNIT/ML SUBCUT SCH ×4 (00:14→18:08)
[2019-10-11 04:58] LABS: ABG Base Excess 1.2 MMOL/L (-2.5-2.5); ABG HCO3 25.4 MMOL/L (20-26); ABG Oxygen Saturation 95.2 % (95-100); ABG PCO2 33.3 MM HG (35-48); ABG PH 7.475 (7.35-7.45); ABG PO2 72.2 MM HG (80-95); ABG TCO2 22.8 MMOL/L (23-27); Allen Test Positive; Pt O2 Delivery Device Ventilator
[2019-10-11 05:41] LABS: Basophils % 0.1 % (0.0-0.8); Eosinophils # 0.1 10*3/uL (0.0-0.87); Eosinophils % 0.8 % (0.00-10.9); Hematocrit 25.8 VOL% (35.7-47.0); Hemoglobin 7.8 GM/DL (12.0-16.0); Immature Granulocytes % 7.2 %; Immature Granulocytes Absolute 0.86 #; Lymphocytes # 0.8 10*3/uL (1.4-4.0); Lymphocytes % 6.6 % (21.3-54.2); Mean Corpuscular HGB Conc 30.2 GM/DL (32-36); Mean Corpuscular Volume 93.1 FL (87-102); Mean Platelet Volume 11.2 FL (9.6-12.0); Monocytes % 6.2 % (1.7-12.7); Neutrophils % 79.1 % (38.7-73.9); Platelet Count 332 T/CUMM (130-400); Red Blood Count 2.77 MC/CUMM (3.8-5.5); Red Cell Distribution Width 13.1 % (9.3-17.3); White Blood Count 11.9 T/CUMM (4-12)
[2019-10-11 05:54] LABS: Albumin 1.9 G/DL (3.4-5.0); Bilirubin,Total 0.7 MG/DL (0.2-1.0); Osmolality,Calculated 312.1 MOS/KG (273-304); Total Protein 6.5 G/DL (6.4-8.3)
[2019-10-11 06:32] LABS: Band Neutrophils 4 % (0-10); Eosinophils 1 % (0-10); Lymphocytes 11 % (20-55); Myelocytes 1 %; Segmented Neutrophils 79 % (50-85)
[2019-10-11 06:33] LABS: Platelet Estimate Normal; Total Cells Counted 100
[2019-10-11] MEDS: APIXABAN 2.5 MG TABLET PO SCH ×2 (08:23→20:18)
[2019-10-11] MEDS: AMIODARONE 200 MG TABLET PO SCH ×2 (08:23→20:19)
[2019-10-11] MEDS: ASPIRIN CHEW 81 MG TABLET PO SCH (08:23)
[2019-10-11] MEDS: carvediloL 6.25 MG TABLET PO SCH ×2 (08:23→20:19)
[2019-10-11] MEDS: DEXAMETHASONE 4 MG/1 ML VIAL IV SCH (08:24)
[2019-10-11] MEDS: PANTOPRAZOLE 40 MG VIAL IV SCH (08:24)
[2019-10-11] MEDS: amLODIPine 10 MG TABLET PO SCH (09:53)
[2019-10-11] MEDS: GABAPENTIN 50 MG/ML 30 ML/BOTTLE PO SCH (20:20)
[2019-10-12] MEDS: INSULIN LISPRO 100 UNIT/ML SUBCUT SCH ×4 (00:24→18:19)
[2019-10-12 04:42] LABS: Allen Test Positive; Pt O2 Delivery Device Ventilator
[2019-10-12 04:46] LABS: ABG Base Excess -0.3 MMOL/L (-2.5-2.5); ABG HCO3 24.1 MMOL/L (20-26); ABG Oxygen Saturation 92.9 % (95-100); ABG PCO2 32.6 MM HG (35-48); ABG PH 7.459 (7.35-7.45); ABG PO2 65.8 MM HG (80-95); ABG TCO2 21.4 MMOL/L (23-27)
[2019-10-12 05:16] LABS: Basophils % 0.1 % (0.0-0.8); Eosinophils # 0.1 10*3/uL (0.0-0.87); Hematocrit 26.9 VOL% (35.7-47.0); Hemoglobin 8.1 GM/DL (12.0-16.0); Immature Granulocytes % 5.4 %; Immature Granulocytes Absolute 0.66 #; Lymphocytes # 0.8 10*3/uL (1.4-4.0); Lymphocytes % 6.9 % (21.3-54.2); Mean Corpuscular HGB Conc 30.1 GM/DL (32-36); Mean Corpuscular Volume 94.1 FL (87-102); Mean Platelet Volume 11.1 FL (9.6-12.0); Monocytes % 6.8 % (1.7-12.7); NRBC # 0.02 10*3/uL; Neutrophils % 79.8 % (38.7-73.9); Platelet Count 353 T/CUMM (130-400); Red Blood Count 2.86 MC/CUMM (3.8-5.5); Red Cell Distribution Width 13.2 % (9.3-17.3); White Blood Count 12.2 T/CUMM (4-12)
[2019-10-12 05:35] LABS: Band Neutrophils 4 % (0-10); Eosinophils 1 % (0-10); Hypochromasia 1+; Lymphocytes 5 % (20-55); Segmented Neutrophils 89 % (50-85); Total Cells Counted 100
[2019-10-12 05:36] LABS: Bilirubin,Total 0.4 MG/DL (0.2-1.0); Calcium 8.8 MG/DL (8.5-10.1); Microcytosis 1+; Osmolality,Calculated 310.1 MOS/KG (273-304); Platelet Estimate Normal; Total Protein 6.6 G/DL (6.4-8.3)
[2019-10-12 06:23] LABS: Ferritin 591.8 ng/ml (8-252)
[2019-10-12] MEDS: amLODIPine 10 MG TABLET PO SCH (08:29)
[2019-10-12] MEDS: ASPIRIN CHEW 81 MG TABLET PO SCH (08:29)
[2019-10-12] MEDS: AMIODARONE 200 MG TABLET PO SCH ×2 (08:29→20:23)
[2019-10-12] MEDS: carvediloL 6.25 MG TABLET PO SCH ×2 (08:29→20:23)
[2019-10-12] MEDS: APIXABAN 2.5 MG TABLET PO SCH ×2 (08:29→20:24)
[2019-10-12] MEDS: PANTOPRAZOLE 40 MG VIAL IV SCH (08:29)
[2019-10-12] MEDS: ROCURONIUM 500 MG in SODIUM CHLORIDE 0.9% 500 ML IV PRN ×2 (10:25→22:44)
[2019-10-12] MEDS ORDERED: fentaNYL INJ 1,250 MCG in SODIUM CHLORIDE 0.9% 225 ML IV PRN (10:39)
[2019-10-12] MEDS: GABAPENTIN 50 MG/ML 30 ML/BOTTLE PO SCH (20:27)
[2019-10-13] MEDS: INSULIN LISPRO 100 UNIT/ML SUBCUT SCH ×4 (00:53→18:15)
[2019-10-13 03:49] LABS: Allen Test Positive; Pt O2 Delivery Device Ventilator
[2019-10-13 03:50] LABS: ABG Base Excess -2.3 MMOL/L (-2.5-2.5); ABG HCO3 22.5 MMOL/L (20-26); ABG Oxygen Saturation 97.7 % (95-100); ABG PCO2 46.9 MM HG (35-48); ABG PH 7.316 (7.35-7.45); ABG TCO2 22.3 MMOL/L (23-27)
[2019-10-13 05:59] LABS: Basophils % 0.3 % (0.0-0.8); Eosinophils # 0.2 10*3/uL (0.0-0.87); Eosinophils % 1.8 % (0.00-10.9); Hematocrit 28.9 VOL% (35.7-47.0); Hemoglobin 8.7 GM/DL (12.0-16.0); Immature Granulocytes % 4.8 %; Immature Granulocytes Absolute 0.63 #; Lymphocytes # 0.9 10*3/uL (1.4-4.0); Lymphocytes % 6.7 % (21.3-54.2); Mean Corpuscular HGB Conc 30.1 GM/DL (32-36); Mean Platelet Volume 11.1 FL (9.6-12.0); Monocytes % 8.9 % (1.7-12.7); NRBC # 0.02 10*3/uL; Neutrophils % 77.5 % (38.7-73.9); Platelet Count 399 T/CUMM (130-400); Red Blood Count 3.01 MC/CUMM (3.8-5.5); Red Cell Distribution Width 13.6 % (9.3-17.3); White Blood Count 13.2 T/CUMM (4-12)
[2019-10-13 06:17] LABS: Calcium 8.7 MG/DL (8.5-10.1); Osmolality,Calculated 304.3 MOS/KG (273-304)
[2019-10-13 06:32] LABS: Bilirubin,Direct 0.18 MG/DL (0.0-0.20); Bilirubin,Indirect 0.2 MG/DL (0.0-1.0); Bilirubin,Total 0.4 MG/DL (0.2-1.0); Total Protein 6.6 G/DL (6.4-8.3)
[2019-10-13 07:02] LABS: Hypochromasia 1+; Lymphocytes 9 % (20-55); Microcytosis Slight; Platelet Estimate Adequate; Segmented Neutrophils 79 % (50-85); Total Cells Counted 100
[2019-10-13] MEDS: amLODIPine 10 MG TABLET PO SCH (07:59)
[2019-10-13] MEDS: PANTOPRAZOLE 40 MG VIAL IV SCH (07:59)
[2019-10-13] MEDS: carvediloL 6.25 MG TABLET PO SCH ×2 (08:00→20:00)
[2019-10-13] MEDS: AMIODARONE 200 MG TABLET PO SCH (08:00)
[2019-10-13] MEDS: ASPIRIN CHEW 81 MG TABLET PO SCH (08:00)
[2019-10-13] MEDS: APIXABAN 2.5 MG TABLET PO SCH ×2 (08:00→20:00)
[2019-10-13] MEDS: SODIUM POLYSTYRENE SULFATE 15 GM/60 ML BOTTLE PO SCH ×2 (08:14→16:26)
[2019-10-13] MEDS: GABAPENTIN 50 MG/ML 30 ML/BOTTLE PO SCH (20:00)
[2019-10-14] MEDS: INSULIN LISPRO 100 UNIT/ML SUBCUT SCH ×4 (01:10→18:00)
[2019-10-14 03:17] LABS: ABG Base Excess 0.2 MMOL/L (-2.5-2.5); ABG HCO3 24.6 MMOL/L (20-26); ABG Oxygen Saturation 96.2 % (95-100); ABG PCO2 32.6 MM HG (35-48); ABG PH 7.465 (7.35-7.45); ABG TCO2 21.5 MMOL/L (23-27); Allen Test Positive; Pt O2 Delivery Device Ventilator
[2019-10-14 04:27] LABS: Basophils % 0.1 % (0.0-0.8); Eosinophils # 0.2 10*3/uL (0.0-0.87); Eosinophils % 1.5 % (0.00-10.9); Hematocrit 25.2 VOL% (35.7-47.0); Immature Granulocytes % 2.2 %; Immature Granulocytes Absolute 0.27 #; Lymphocytes # 1.1 10*3/uL (1.4-4.0); Lymphocytes % 8.8 % (21.3-54.2); Mean Corpuscular HGB Conc 31.7 GM/DL (32-36); Mean Corpuscular Volume 93.7 FL (87-102); Mean Platelet Volume 11.3 FL (9.6-12.0); Monocytes % 7.6 % (1.7-12.7); Neutrophils % 79.8 % (38.7-73.9); Platelet Count 345 T/CUMM (130-400); Red Blood Count 2.69 MC/CUMM (3.8-5.5); Red Cell Distribution Width 13.5 % (9.3-17.3); White Blood Count 12.3 T/CUMM (4-12)
[2019-10-14 04:51] LABS: Calcium 8.4 MG/DL (8.5-10.1); Osmolality,Calculated 305.1 MOS/KG (273-304)
[2019-10-14] MEDS: AMIODARONE 200 MG TABLET PO SCH (08:03)
[2019-10-14] MEDS: ASPIRIN CHEW 81 MG TABLET PO SCH (08:03)
[2019-10-14] MEDS: carvediloL 6.25 MG TABLET PO SCH ×2 (08:03→20:39)
[2019-10-14] MEDS: APIXABAN 2.5 MG TABLET PO SCH ×2 (08:03→20:39)
[2019-10-14] MEDS: PANTOPRAZOLE 40 MG VIAL IV SCH (08:03)
[2019-10-14] MEDS: amLODIPine 10 MG TABLET PO SCH (08:03)
[2019-10-14] MEDS: GABAPENTIN 50 MG/ML 30 ML/BOTTLE PO SCH (20:39)
[2019-10-15] MEDS: INSULIN LISPRO 100 UNIT/ML SUBCUT SCH ×4 (00:23→17:41)
[2019-10-15 05:05] LABS: Basophils % 0.1 % (0.0-0.8); Eosinophils # 0.2 10*3/uL (0.0-0.87); Eosinophils % 1.5 % (0.00-10.9); Hematocrit 24.3 VOL% (35.7-47.0); Hemoglobin 7.4 GM/DL (12.0-16.0); Immature Granulocytes % 1.3 %; Immature Granulocytes Absolute 0.15 #; Lymphocytes # 1.2 10*3/uL (1.4-4.0); Lymphocytes % 10.7 % (21.3-54.2); Mean Corpuscular HGB Conc 30.5 GM/DL (32-36); Mean Corpuscular Volume 94.2 FL (87-102); Mean Platelet Volume 11.7 FL (9.6-12.0); Monocytes % 8.7 % (1.7-12.7); Neutrophils % 77.7 % (38.7-73.9); Platelet Count 278 T/CUMM (130-400); Red Blood Count 2.58 MC/CUMM (3.8-5.5); Red Cell Distribution Width 13.6 % (9.3-17.3); White Blood Count 11.6 T/CUMM (4-12)
[2019-10-15 05:08] LABS: ABG Base Excess -2.3 MMOL/L (-2.5-2.5); ABG HCO3 22.3 MMOL/L (20-26); ABG Oxygen Saturation 84.3 % (95-100); ABG PH 7.343 (7.35-7.45); ABG PO2 56.3 MM HG (80-95); ABG TCO2 21.4 MMOL/L (23-27); Allen Test Positive; Pt O2 Delivery Device Ventilator
[2019-10-15 05:26] LABS: Calcium 8.1 MG/DL (8.5-10.1)
[2019-10-15] MEDS: amLODIPine 10 MG TABLET PO SCH (08:22)
[2019-10-15] MEDS: AMIODARONE 200 MG TABLET PO SCH (08:22)
[2019-10-15] MEDS: carvediloL 6.25 MG TABLET PO SCH ×2 (08:22→20:35)
[2019-10-15] MEDS: PANTOPRAZOLE 40 MG VIAL IV SCH (08:22)
[2019-10-15] MEDS: APIXABAN 2.5 MG TABLET PO SCH ×2 (08:22→20:35)
[2019-10-15] MEDS: ASPIRIN CHEW 81 MG TABLET PO SCH (08:22)
[2019-10-15] MEDS: GABAPENTIN 50 MG/ML 30 ML/BOTTLE PO SCH (20:35)
[2019-10-15] MEDS: ACETAMINOPHEN 500 MG TABLET PO PRN (20:36)
[2019-10-16] MEDS: INSULIN LISPRO 100 UNIT/ML SUBCUT SCH ×4 (00:44→19:01)
[2019-10-16 03:56] LABS: Basophils % 0.2 % (0.0-0.8); Eosinophils # 0.2 10*3/uL (0.0-0.87); Eosinophils % 1.5 % (0.00-10.9); Hematocrit 24.6 VOL% (35.7-47.0); Hemoglobin 7.4 GM/DL (12.0-16.0); Immature Granulocytes % 1.2 %; Immature Granulocytes Absolute 0.13 #; Lymphocytes % 8.7 % (21.3-54.2); Mean Corpuscular HGB Conc 30.1 GM/DL (32-36); Mean Corpuscular Volume 96.1 FL (87-102); Mean Platelet Volume 11.4 FL (9.6-12.0); Monocytes % 8.2 % (1.7-12.7); NRBC # 0.02 10*3/uL; Neutrophils % 80.2 % (38.7-73.9); Platelet Count 273 T/CUMM (130-400); Red Blood Count 2.56 MC/CUMM (3.8-5.5); Red Cell Distribution Width 13.8 % (9.3-17.3); White Blood Count 11.3 T/CUMM (4-12)
[2019-10-16 04:10] LABS: Calcium 8.5 MG/DL (8.5-10.1); Osmolality,Calculated 299.3 MOS/KG (273-304)
[2019-10-16 04:32] LABS: Allen Test Positive; Pt O2 Delivery Device Ventilator
[2019-10-16 04:33] LABS: ABG Base Excess -1.7 MMOL/L (-2.5-2.5); ABG Oxygen Saturation 94.7 % (95-100); ABG PCO2 31.5 MM HG (35-48); ABG PH 7.448 (7.35-7.45); ABG PO2 71.5 MM HG (80-95); ABG TCO2 20.5 MMOL/L (23-27)
[2019-10-16] MEDS: ASPIRIN CHEW 81 MG TABLET PO SCH (08:18)
[2019-10-16] MEDS: APIXABAN 2.5 MG TABLET PO SCH ×2 (08:18→21:11)
[2019-10-16] MEDS: carvediloL 6.25 MG TABLET PO SCH ×2 (08:18→21:10)
[2019-10-16] MEDS: PANTOPRAZOLE 40 MG VIAL IV SCH (08:18)
[2019-10-16] MEDS: amLODIPine 10 MG TABLET PO SCH (08:18)
[2019-10-16] MEDS: AMIODARONE 200 MG TABLET PO SCH (08:18)
[2019-10-16] MEDS: GABAPENTIN 50 MG/ML 30 ML/BOTTLE PO SCH (21:11)
[2019-10-17] MEDS: INSULIN LISPRO 100 UNIT/ML SUBCUT SCH ×4 (01:14→18:24)
[2019-10-17 04:21] LABS: Basophils % 0.2 % (0.0-0.8); Eosinophils # 0.2 10*3/uL (0.0-0.87); Eosinophils % 1.8 % (0.00-10.9); Hematocrit 23.8 VOL% (35.7-47.0); Hemoglobin 7.2 GM/DL (12.0-16.0); Immature Granulocytes % 1.1 %; Immature Granulocytes Absolute 0.11 #; Lymphocytes # 1.1 10*3/uL (1.4-4.0); Lymphocytes % 11.6 % (21.3-54.2); Mean Corpuscular HGB Conc 30.3 GM/DL (32-36); Mean Corpuscular Volume 96.4 FL (87-102); Mean Platelet Volume 11.2 FL (9.6-12.0); Monocytes % 9.5 % (1.7-12.7); Neutrophils % 75.8 % (38.7-73.9); Platelet Count 263 T/CUMM (130-400); Red Blood Count 2.47 MC/CUMM (3.8-5.5); Red Cell Distribution Width 13.8 % (9.3-17.3); White Blood Count 9.7 T/CUMM (4-12)
[2019-10-17 04:54] LABS: Calcium 9.1 MG/DL (8.5-10.1); Osmolality,Calculated 295.3 MOS/KG (273-304)
[2019-10-17 05:07] LABS: ABG Base Excess -2.2 MMOL/L (-2.5-2.5); ABG HCO3 22.5 MMOL/L (20-26); ABG PCO2 31.7 MM HG (35-48); ABG PH 7.438 (7.35-7.45); ABG PO2 63.7 MM HG (80-95); ABG TCO2 20.1 MMOL/L (23-27)
[2019-10-17] MEDS: PANTOPRAZOLE 40 MG VIAL IV SCH (08:04)
[2019-10-17] MEDS: carvediloL 6.25 MG TABLET PO SCH ×2 (08:04→21:09)
[2019-10-17] MEDS: AMIODARONE 200 MG TABLET PO SCH (08:04)
[2019-10-17] MEDS: ASPIRIN CHEW 81 MG TABLET PO SCH (08:05)
[2019-10-17] MEDS: APIXABAN 2.5 MG TABLET PO SCH ×2 (08:05→21:09)
[2019-10-17] MEDS: amLODIPine 10 MG TABLET PO SCH (08:05)
[2019-10-17] MEDS: DEXMEDETOMIDINE 200 MCG in SODIUM CHLORIDE 0.9% 48 ML IV PRN ×2 (09:52→21:08)
[2019-10-17 12:02] LABS: ABG Base Excess -1.8 MMOL/L (-2.5-2.5); ABG HCO3 22.8 MMOL/L (20-26); ABG Oxygen Saturation 95.8 % (95-100); ABG PCO2 30.5 MM HG (35-48); ABG PH 7.456 (7.35-7.45); ABG PO2 74.1 MM HG (80-95); ABG TCO2 20.1 MMOL/L (23-27); Pt O2 Delivery Device Ventilator
[2019-10-17] MEDS: GABAPENTIN 50 MG/ML 30 ML/BOTTLE PO SCH (21:09)
[2019-10-18] MEDS: INSULIN LISPRO 100 UNIT/ML SUBCUT SCH ×4 (01:16→18:21)
[2019-10-18] MEDS: DEXMEDETOMIDINE 200 MCG in SODIUM CHLORIDE 0.9% 48 ML IV PRN (06:41)
[2019-10-18] MEDS: APIXABAN 2.5 MG TABLET PO SCH ×2 (08:21→21:42)
[2019-10-18] MEDS: AMIODARONE 200 MG TABLET PO SCH (08:21)
[2019-10-18] MEDS: carvediloL 6.25 MG TABLET PO SCH ×2 (08:21→21:42)
[2019-10-18] MEDS: amLODIPine 10 MG TABLET PO SCH (08:21)
[2019-10-18] MEDS: ASPIRIN CHEW 81 MG TABLET PO SCH (08:21)
[2019-10-18] MEDS: PANTOPRAZOLE 40 MG VIAL IV SCH (08:21)
[2019-10-18 10:24] LABS: Basophils % 0.2 % (0.0-0.8); Eosinophils # 0.3 10*3/uL (0.0-0.87); Eosinophils % 2.5 % (0.00-10.9); Hematocrit 22.8 VOL% (35.7-47.0); Hemoglobin 6.8 GM/DL (12.0-16.0); Immature Granulocytes % 0.9 %; Immature Granulocytes Absolute 0.09 #; Lymphocytes # 1.1 10*3/uL (1.4-4.0); Lymphocytes % 11.1 % (21.3-54.2); Mean Corpuscular HGB Conc 29.8 GM/DL (32-36); Mean Corpuscular Volume 95.8 FL (87-102); Mean Platelet Volume 11.1 FL (9.6-12.0); Monocytes % 10.2 % (1.7-12.7); Neutrophils % 75.1 % (38.7-73.9); Platelet Count 248 T/CUMM (130-400); Red Blood Count 2.38 MC/CUMM (3.8-5.5); Red Cell Distribution Width 14.1 % (9.3-17.3); White Blood Count 9.8 T/CUMM (4-12)
[2019-10-18 10:33] LABS: Osmolality,Calculated 294.3 MOS/KG (273-304)
[2019-10-18] MEDS ORDERED: DEXMEDETOMIDINE 400 MCG in SODIUM CHLORIDE 0.9% 96 ML IV PRN (10:56)
[2019-10-18] MEDS ORDERED: SODIUM CHLORIDE 0.9% 1,000 ML IV PRN (11:11)
[2019-10-18 11:46] LABS: ABG Base Excess -1.8 MMOL/L (-2.5-2.5); ABG HCO3 22.9 MMOL/L (20-26); ABG Oxygen Saturation 97.6 % (95-100); ABG PCO2 31.6 MM HG (35-48); ABG PH 7.446 (7.35-7.45); ABG PO2 89.9 MM HG (80-95); ABG TCO2 20.2 MMOL/L (23-27); Allen Test Positive; Pt O2 Delivery Device Ventilator
[2019-10-18] MEDS ORDERED: ALBUTEROL/IPRATROPIUM 3 ML NEB RESP TX SCH (15:00)
[2019-10-18] MEDS ORDERED: DEXAMETHASONE 4 MG/1 ML VIAL IV ONE (15:00)
[2019-10-18] MEDS: RACEPINEPHRINE 0.5 ML NEB RESP TX SCH ×3 (15:30→23:23)
[2019-10-18] MEDS: GABAPENTIN 50 MG/ML 30 ML/BOTTLE PO SCH (21:42)
[2019-10-19] MEDS: INSULIN LISPRO 100 UNIT/ML SUBCUT SCH ×4 (00:44→18:36)
[2019-10-19 06:34] LABS: Basophils % 0.2 % (0.0-0.8); Eosinophils % 0.1 % (0.00-10.9); Immature Granulocytes % 1.5 %; Immature Granulocytes Absolute 0.26 #; Lymphocytes # 1.2 10*3/uL (1.4-4.0); Lymphocytes % 7.2 % (21.3-54.2); Mean Corpuscular Volume 91.2 FL (87-102); Mean Platelet Volume 10.9 FL (9.6-12.0); NRBC # 0.03 10*3/uL; Platelet Count 271 T/CUMM (130-400); Red Cell Distribution Width 16.2 % (9.3-17.3); White Blood Count 17.2 T/CUMM (4-12)
[2019-10-19 06:44] LABS: Hemoglobin 10.2 GM/DL (12.0-16.0); Red Blood Count 3.29 MC/CUMM (3.8-5.5)
[2019-10-19] MEDS: PANTOPRAZOLE 40 MG VIAL IV SCH ×2 (08:31→21:02)
[2019-10-19] MEDS: ASPIRIN CHEW 81 MG TABLET PO SCH (08:31)
[2019-10-19] MEDS: carvediloL 6.25 MG TABLET PO SCH ×2 (08:31→21:02)
[2019-10-19] MEDS: AMIODARONE 200 MG TABLET PO SCH (08:31)
[2019-10-19] MEDS: APIXABAN 2.5 MG TABLET PO SCH (08:31)
[2019-10-19] MEDS: amLODIPine 10 MG TABLET PO SCH (08:32)
[2019-10-19] MEDS: DEXAMETHASONE 4 MG/1 ML VIAL IV SCH (10:38)
[2019-10-19] MEDS: cefTRIAXone 1,000 MG in SYRINGE 1 EACH IV SCH (11:17)
[2019-10-19] MEDS: ZINC GLUCONATE 50 MG TABLET PO SCH (15:21)
[2019-10-19] MEDS: ASCORBIC ACID 500 MG TABLET PO SCH ×2 (15:21→21:02)
[2019-10-19 15:28] LABS: Hemoglobin 10.4 GM/DL (12.0-16.0)
[2019-10-19] MEDS: GABAPENTIN 50 MG/ML 30 ML/BOTTLE PO SCH (21:02)
[2019-10-19 23:18] LABS: Hematocrit 30.2 VOL% (35.7-47.0); Hemoglobin 9.6 GM/DL (12.0-16.0)
[2019-10-20] MEDS: INSULIN LISPRO 100 UNIT/ML SUBCUT SCH ×4 (00:19→17:39)
[2019-10-20] MEDS ORDERED: PHENYLEPHRINE DRIP 40 MG/250 ML PREMIX IV PRN (00:35)
[2019-10-20 04:16] LABS: Calcium 9.8 MG/DL (8.5-10.1); Osmolality,Calculated 288.8 MOS/KG (273-304)
[2019-10-20 04:20] LABS: Basophils # 0.1 10*3/uL (0.0-0.2); Basophils % 0.3 % (0.0-0.8); Eosinophils % 0.2 % (0.00-10.9); Hematocrit 31.3 VOL% (35.7-47.0); Immature Granulocytes % 1.3 %; Immature Granulocytes Absolute 0.22 #; Lymphocytes # 1.1 10*3/uL (1.4-4.0); Lymphocytes % 6.3 % (21.3-54.2); Mean Corpuscular HGB Conc 31.9 GM/DL (32-36); Mean Corpuscular Volume 91.3 FL (87-102); Mean Platelet Volume 11.3 FL (9.6-12.0); NRBC # 0.04 10*3/uL; Neutrophils % 84.9 % (38.7-73.9); Platelet Count 287 T/CUMM (130-400); Red Blood Count 3.43 MC/CUMM (3.8-5.5); White Blood Count 16.8 T/CUMM (4-12)
[2019-10-20 06:02] LABS: ABG Base Excess -3.4 MMOL/L (-2.5-2.5); ABG HCO3 21.5 MMOL/L (20-26); ABG Oxygen Saturation 93.1 % (95-100); ABG PCO2 26.9 MM HG (35-48); ABG PH 7.463 (7.35-7.45); ABG PO2 61.3 MM HG (80-95); ABG TCO2 17.4 MMOL/L (23-27)
[2019-10-20] MEDS: ASPIRIN CHEW 81 MG TABLET PO SCH (08:41)
[2019-10-20] MEDS: amLODIPine 10 MG TABLET PO SCH (08:41)
[2019-10-20] MEDS: ZINC GLUCONATE 50 MG TABLET PO SCH (08:41)
[2019-10-20] MEDS: carvediloL 6.25 MG TABLET PO SCH ×3 (08:41→20:25)
[2019-10-20] MEDS: ASCORBIC ACID 500 MG TABLET PO SCH ×3 (08:41→20:26)
[2019-10-20] MEDS: PANTOPRAZOLE 40 MG VIAL IV SCH ×2 (08:41→20:26)
[2019-10-20] MEDS: DEXAMETHASONE 4 MG/1 ML VIAL IV SCH (08:42)
[2019-10-20] MEDS: AMIODARONE 200 MG TABLET PO SCH (08:44)
[2019-10-20] MEDS: methylPREDNISolone SOD SUC 40 MG/1 ML VIAL IV SCH ×2 (09:18→17:01)
[2019-10-20] MEDS: ALBUTEROL/IPRATROPIUM 3 ML NEB RESP TX SCH ×2 (10:00→10:07)
[2019-10-20] MEDS: cefTRIAXone 1,000 MG in SYRINGE 1 EACH IV SCH (10:32)
[2019-10-20] MEDS: GABAPENTIN 50 MG/ML 30 ML/BOTTLE PO SCH (20:25)
[2019-10-21] MEDS: INSULIN LISPRO 100 UNIT/ML SUBCUT SCH ×4 (00:37→17:45)
[2019-10-21] MEDS: methylPREDNISolone SOD SUC 40 MG/1 ML VIAL IV SCH ×3 (02:23→17:44)
[2019-10-21 04:08] LABS: Basophils % 0.1 % (0.0-0.8); Hematocrit 29.6 VOL% (35.7-47.0); Hemoglobin 9.3 GM/DL (12.0-16.0); Immature Granulocytes % 1.6 %; Lymphocytes # 0.8 10*3/uL (1.4-4.0); Lymphocytes % 6.3 % (21.3-54.2); Mean Corpuscular HGB Conc 31.4 GM/DL (32-36); Mean Corpuscular Volume 92.2 FL (87-102); Mean Platelet Volume 10.6 FL (9.6-12.0); Monocytes % 7.3 % (1.7-12.7); Neutrophils % 84.7 % (38.7-73.9); Platelet Count 216 T/CUMM (130-400); Red Blood Count 3.21 MC/CUMM (3.8-5.5); Red Cell Distribution Width 17.1 % (9.3-17.3); White Blood Count 12.5 T/CUMM (4-12)
[2019-10-21 04:22] LABS: Calcium 9.5 MG/DL (8.5-10.1); Osmolality,Calculated 300.5 MOS/KG (273-304)
[2019-10-21] MEDS: ZINC GLUCONATE 50 MG TABLET PO SCH (08:22)
[2019-10-21] MEDS: ASCORBIC ACID 500 MG TABLET PO SCH ×3 (08:22→21:43)
[2019-10-21] MEDS: ASPIRIN CHEW 81 MG TABLET PO SCH (08:22)
[2019-10-21] MEDS: PANTOPRAZOLE 40 MG VIAL IV SCH ×2 (08:22→21:05)
[2019-10-21] MEDS: carvediloL 6.25 MG TABLET PO SCH ×2 (08:22→21:43)
[2019-10-21] MEDS: amLODIPine 10 MG TABLET PO SCH (08:22)
[2019-10-21] MEDS: AMIODARONE 200 MG TABLET PO SCH (08:22)
[2019-10-21] MEDS: APIXABAN 2.5 MG TABLET PO SCH (09:03)
[2019-10-21] MEDS: cefTRIAXone 1,000 MG in SYRINGE 1 EACH IV SCH (09:30)
[2019-10-21] MEDS: ARFORMOTEROL 15 MCG/2 ML NEB RESP TX SCH (21:43)
[2019-10-21] MEDS: GABAPENTIN 50 MG/ML 30 ML/BOTTLE PO SCH (21:43)
[2019-10-21] MEDS: INSULIN GLARGINE 100 UNIT/ML SUBCUT SCH (21:43)
[2019-10-22] MEDS: INSULIN LISPRO 100 UNIT/ML SUBCUT SCH ×4 (00:29→18:15)
[2019-10-22] MEDS: methylPREDNISolone SOD SUC 40 MG/1 ML VIAL IV SCH ×3 (01:06→17:00)
[2019-10-22 03:29] LABS: Allen Test Positive; Pt O2 Delivery Device Other
[2019-10-22 03:31] LABS: ABG Base Excess -4.2 MMOL/L (-2.5-2.5); ABG HCO3 20.9 MMOL/L (20-26); ABG Oxygen Saturation 96.4 % (95-100); ABG PCO2 29.1 MM HG (35-48); ABG PH 7.429 (7.35-7.45); ABG TCO2 17.6 MMOL/L (23-27)
[2019-10-22 04:45] LABS: Basophils % 0.2 % (0.0-0.8); Hematocrit 28.6 VOL% (35.7-47.0); Hemoglobin 9.2 GM/DL (12.0-16.0); Immature Granulocytes % 1.3 %; Immature Granulocytes Absolute 0.17 #; Lymphocytes # 0.7 10*3/uL (1.4-4.0); Lymphocytes % 5.5 % (21.3-54.2); Mean Corpuscular HGB Conc 32.2 GM/DL (32-36); Mean Platelet Volume 11.2 FL (9.6-12.0); Monocytes % 7.9 % (1.7-12.7); Neutrophils % 85.1 % (38.7-73.9); Platelet Count 214 T/CUMM (130-400); Red Blood Count 3.11 MC/CUMM (3.8-5.5); Red Cell Distribution Width 16.6 % (9.3-17.3); White Blood Count 12.6 T/CUMM (4-12)
[2019-10-22 05:06] LABS: Calcium 9.1 MG/DL (8.5-10.1); Osmolality,Calculated 304.3 MOS/KG (273-304)
[2019-10-22] MEDS: ZINC GLUCONATE 50 MG TABLET PO SCH (08:10)
[2019-10-22] MEDS: AMIODARONE 200 MG TABLET PO SCH (08:10)
[2019-10-22] MEDS: amLODIPine 10 MG TABLET PO SCH (08:10)
[2019-10-22] MEDS: ASPIRIN CHEW 81 MG TABLET PO SCH (08:10)
[2019-10-22] MEDS: ASCORBIC ACID 500 MG TABLET PO SCH ×3 (08:10→20:05)
[2019-10-22] MEDS: carvediloL 6.25 MG TABLET PO SCH ×2 (08:11→20:05)
[2019-10-22] MEDS: PANTOPRAZOLE 40 MG VIAL IV SCH ×2 (08:19→20:07)
[2019-10-22] MEDS: ARFORMOTEROL 15 MCG/2 ML NEB RESP TX SCH ×2 (08:41→20:29)
[2019-10-22] MEDS: cefTRIAXone 1,000 MG in SYRINGE 1 EACH IV SCH (10:45)
[2019-10-22] MEDS: GABAPENTIN 50 MG/ML 30 ML/BOTTLE PO SCH (20:05)
[2019-10-22] MEDS: INSULIN GLARGINE 100 UNIT/ML SUBCUT SCH (20:06)
[2019-10-23] MEDS: INSULIN LISPRO 100 UNIT/ML SUBCUT SCH ×4 (00:54→17:59)
[2019-10-23] MEDS: methylPREDNISolone SOD SUC 40 MG/1 ML VIAL IV SCH ×3 (02:27→17:01)
[2019-10-23 04:01] LABS: Basophils % 0.2 % (0.0-0.8); Hematocrit 31.7 VOL% (35.7-47.0); Hemoglobin 10.2 GM/DL (12.0-16.0); Immature Granulocytes % 2.4 %; Immature Granulocytes Absolute 0.36 #; Lymphocytes # 0.8 10*3/uL (1.4-4.0); Lymphocytes % 5.4 % (21.3-54.2); Mean Corpuscular HGB Conc 32.2 GM/DL (32-36); Mean Corpuscular Volume 91.1 FL (87-102); Mean Platelet Volume 11.5 FL (9.6-12.0); Monocytes % 7.7 % (1.7-12.7); NRBC # 0.02 10*3/uL; Neutrophils % 84.3 % (38.7-73.9); Platelet Count 217 T/CUMM (130-400); Red Blood Count 3.48 MC/CUMM (3.8-5.5)
[2019-10-23 04:14] LABS: Calcium 9.5 MG/DL (8.5-10.1); Osmolality,Calculated 311.3 MOS/KG (273-304)
[2019-10-23] MEDS: ARFORMOTEROL 15 MCG/2 ML NEB RESP TX SCH ×4 (08:11→19:50)
[2019-10-23] MEDS: ZINC GLUCONATE 50 MG TABLET PO SCH (08:29)
[2019-10-23] MEDS: PANTOPRAZOLE 40 MG VIAL IV SCH ×2 (08:29→20:28)
[2019-10-23] MEDS: carvediloL 6.25 MG TABLET PO SCH ×2 (08:29→20:27)
[2019-10-23] MEDS: ASCORBIC ACID 500 MG TABLET PO SCH ×3 (08:29→20:27)
[2019-10-23] MEDS: AMIODARONE 200 MG TABLET PO SCH (08:29)
[2019-10-23] MEDS: ASPIRIN CHEW 81 MG TABLET PO SCH (08:29)
[2019-10-23] MEDS: amLODIPine 10 MG TABLET PO SCH (08:30)
[2019-10-23] MEDS: cefTRIAXone 1,000 MG in SYRINGE 1 EACH IV SCH (08:32)
[2019-10-23] MEDS: INSULIN GLARGINE 100 UNIT/ML SUBCUT SCH (20:30)
[2019-10-23] MEDS: GABAPENTIN 50 MG/ML 30 ML/BOTTLE PO SCH (20:30)
[2019-10-24] MEDS: INSULIN LISPRO 100 UNIT/ML SUBCUT SCH ×4 (00:38→18:20)
[2019-10-24] MEDS: methylPREDNISolone SOD SUC 40 MG/1 ML VIAL IV SCH ×3 (01:50→20:27)
[2019-10-24] MEDS: ARFORMOTEROL 15 MCG/2 ML NEB RESP TX SCH ×2 (07:40→21:07)
[2019-10-24 08:10] LABS: Basophils # 0.1 10*3/uL (0.0-0.2); Basophils % 0.5 % (0.0-0.8); Hematocrit 35.6 VOL% (35.7-47.0); Hemoglobin 11.2 GM/DL (12.0-16.0); Immature Granulocytes % 6.1 %; Immature Granulocytes Absolute 1.75 #; Lymphocytes # 2.1 10*3/uL (1.4-4.0); Lymphocytes % 7.2 % (21.3-54.2); Mean Corpuscular HGB Conc 31.5 GM/DL (32-36); Mean Corpuscular Volume 90.8 FL (87-102); Mean Platelet Volume 11.7 FL (9.6-12.0); Monocytes % 7.4 % (1.7-12.7); NRBC # 0.12 10*3/uL; Neutrophils % 78.8 % (38.7-73.9); Platelet Count 279 T/CUMM (130-400); Red Blood Count 3.92 MC/CUMM (3.8-5.5); Red Cell Distribution Width 17.4 % (9.3-17.3); White Blood Count 28.7 T/CUMM (4-12)
[2019-10-24 08:29] LABS: Calcium 9.7 MG/DL (8.5-10.1); Osmolality,Calculated 314.3 MOS/KG (273-304)
[2019-10-24] MEDS: carvediloL 6.25 MG TABLET PO SCH (09:09)
[2019-10-24] MEDS: AMIODARONE 200 MG TABLET PO SCH (09:09)
[2019-10-24] MEDS: ASPIRIN CHEW 81 MG TABLET PO SCH (09:09)
[2019-10-24] MEDS: ZINC GLUCONATE 50 MG TABLET PO SCH (09:10)
[2019-10-24] MEDS: amLODIPine 10 MG TABLET PO SCH (09:10)
[2019-10-24] MEDS: PANTOPRAZOLE 40 MG VIAL IV SCH ×2 (09:10→20:20)
[2019-10-24] MEDS: ASCORBIC ACID 500 MG TABLET PO SCH ×3 (09:10→20:21)
[2019-10-24] MEDS: cefTRIAXone 1,000 MG in SYRINGE 1 EACH IV SCH ×3 (09:11→10:04)
[2019-10-24 09:41] LABS: Anisocytosis Slight; Band Neutrophils 1 % (0-10); Lymphocytes 4 % (20-55); Macrocytosis Slight; Metamyelocytes 1 %; Myelocytes 1 %; Platelet Estimate Normal; Segmented Neutrophils 87 % (50-85); Total Cells Counted 100
[2019-10-24] MEDS ORDERED: MORPHINE 4 MG/1 ML VIAL IV ONE (10:01)
[2019-10-24] MEDS ORDERED: INSULIN GLARGINE 100 UNIT/ML SUBCUT SCH (13:54)
[2019-10-24] MEDS ORDERED: hydrALAZINE 20 MG/1 ML VIAL IV PRN (16:14)
[2019-10-24] MEDS ORDERED: ETOMIDATE 20 MG/10 ML VIAL IV ONE ×2 (18:22→19:02)
[2019-10-24] MEDS ORDERED: ROCURONIUM 100 MG/10 ML VIAL IV ONE ×3 (18:23→19:05)
[2019-10-24] MEDS ORDERED: MIDAZOLAM 2 MG/2 ML VIAL IV PRN (19:07)
[2019-10-24] MEDS: carvediloL 25 MG TABLET PO SCH (20:10)
[2019-10-24] MEDS: GABAPENTIN 50 MG/ML 30 ML/BOTTLE PO SCH (20:20)
[2019-10-24 21:31] LABS: ABG Base Excess -7.6 MMOL/L (-2.5-2.5); ABG HCO3 18.3 MMOL/L (20-26); ABG Oxygen Saturation 98.8 % (95-100); ABG PH 7.279 (7.35-7.45); ABG TCO2 17.1 MMOL/L (23-27)
[2019-10-24 21:32] LABS: Allen Test Positive; Pt O2 Delivery Device Ventilator
[2019-10-25] MEDS: INSULIN LISPRO 100 UNIT/ML SUBCUT SCH ×4 (01:16→17:28)
[2019-10-25 05:15] LABS: ABG HCO3 17.8 MMOL/L (20-26); ABG PCO2 37.8 MM HG (35-48); ABG PH 7.292 (7.35-7.45); ABG PO2 187.3 MM HG (80-95); Allen Test Positive; Pt O2 Delivery Device Ventilator
[2019-10-25 05:47] LABS: Basophils % 0.2 % (0.0-0.8); Hematocrit 28.8 VOL% (35.7-47.0); Hemoglobin 8.7 GM/DL (12.0-16.0); Immature Granulocytes % 1.7 %; Immature Granulocytes Absolute 0.21 #; Lymphocytes # 0.7 10*3/uL (1.4-4.0); Lymphocytes % 5.9 % (21.3-54.2); Mean Corpuscular HGB Conc 30.2 GM/DL (32-36); Mean Platelet Volume 12.1 FL (9.6-12.0); NRBC # 0.03 10*3/uL; Neutrophils % 85.2 % (38.7-73.9); Platelet Count 143 T/CUMM (130-400); Red Blood Count 3.03 MC/CUMM (3.8-5.5); Red Cell Distribution Width 17.5 % (9.3-17.3); White Blood Count 12.3 T/CUMM (4-12)
[2019-10-25 06:16] LABS: Calcium 8.9 MG/DL (8.5-10.1); Osmolality,Calculated 320.4 MOS/KG (273-304)
[2019-10-25 07:22] LABS: Band Neutrophils 3 % (0-10); Hypochromasia 2+; Lymphocytes 2 % (20-55); Ovalocytes Few; Platelet Estimate Adequate; Polychromasia Slight; Segmented Neutrophils 92 % (50-85); Total Cells Counted 100
[2019-10-25] MEDS: ARFORMOTEROL 15 MCG/2 ML NEB RESP TX SCH ×2 (07:30→21:14)
[2019-10-25] MEDS: AMIODARONE 200 MG TABLET PO SCH (08:15)
[2019-10-25] MEDS: carvediloL 25 MG TABLET PO SCH ×2 (08:15→20:20)
[2019-10-25] MEDS: ASCORBIC ACID 500 MG TABLET PO SCH ×3 (08:15→20:19)
[2019-10-25] MEDS: ZINC GLUCONATE 50 MG TABLET PO SCH (08:15)
[2019-10-25] MEDS: amLODIPine 10 MG TABLET PO SCH (08:15)
[2019-10-25] MEDS: ASPIRIN CHEW 81 MG TABLET PO SCH (08:15)
[2019-10-25] MEDS: PANTOPRAZOLE 40 MG VIAL IV SCH ×2 (08:15→20:20)
[2019-10-25] MEDS: methylPREDNISolone SOD SUC 40 MG/1 ML VIAL IV SCH ×2 (08:17→20:19)
[2019-10-25] MEDS: SODIUM BICARB INJ 150 MEQ in STERILE WATER INJ 850 ML IV SCH (10:00)
[2019-10-25] MEDS: cefTRIAXone 1,000 MG in SYRINGE 1 EACH IV SCH (10:14)
[2019-10-25] MEDS ORDERED: SODIUM CHLORIDE 0.9% 500 ML IV ONE (12:02)
[2019-10-25] MEDS: ceFAZolin 2,000 MG in PREMIX 1 EACH IV SCH (14:35)
[2019-10-25 15:38] LABS: ABG Base Excess -8.2 MMOL/L (-2.5-2.5); ABG HCO3 17.9 MMOL/L (20-26); ABG Oxygen Saturation 97.2 % (95-100); ABG PCO2 39.3 MM HG (35-48); ABG PH 7.277 (7.35-7.45); ABG PO2 100.4 MM HG (80-95); ABG TCO2 19.1 MMOL/L (23-27)
[2019-10-25] MEDS: INSULIN GLARGINE 100 UNIT/ML SUBCUT SCH (20:19)
[2019-10-25] MEDS: GABAPENTIN 50 MG/ML 30 ML/BOTTLE PO SCH (20:20)
[2019-10-26] MEDS: INSULIN LISPRO 100 UNIT/ML SUBCUT SCH ×4 (00:19→18:24)
[2019-10-26] MEDS: ceFAZolin 2,000 MG in PREMIX 1 EACH IV SCH ×3 (00:19→15:42)
[2019-10-26 04:36] LABS: Allen Test Positive; Pt O2 Delivery Device Ventilator
[2019-10-26 04:38] LABS: ABG Base Excess -5.5 MMOL/L (-2.5-2.5); ABG HCO3 20.5 MMOL/L (20-26); ABG PH 7.307 (7.35-7.45); ABG PO2 83.6 MM HG (80-95); ABG TCO2 21.8 MMOL/L (23-27)
[2019-10-26 04:39] LABS: ABG Oxygen Saturation 95.4 % (95-100)
[2019-10-26 04:51] LABS: Basophils % 0.2 % (0.0-0.8); Hematocrit 27.3 VOL% (35.7-47.0); Hemoglobin 8.3 GM/DL (12.0-16.0); Immature Granulocytes % 6.4 %; Immature Granulocytes Absolute 0.71 #; Lymphocytes # 0.7 10*3/uL (1.4-4.0); Lymphocytes % 6.1 % (21.3-54.2); Mean Corpuscular HGB Conc 30.4 GM/DL (32-36); Mean Corpuscular Volume 95.1 FL (87-102); Mean Platelet Volume 12.3 FL (9.6-12.0); NRBC # 0.05 10*3/uL; Neutrophils % 81.3 % (38.7-73.9); Platelet Count 138 T/CUMM (130-400); Red Blood Count 2.87 MC/CUMM (3.8-5.5); Red Cell Distribution Width 17.2 % (9.3-17.3); White Blood Count 11.2 T/CUMM (4-12)
[2019-10-26] MEDS: SODIUM BICARB INJ 150 MEQ in STERILE WATER INJ 850 ML IV SCH ×2 (04:55→20:20)
[2019-10-26 04:56] LABS: Calcium 8.4 MG/DL (8.5-10.1); Osmolality,Calculated 325.8 MOS/KG (273-304)
[2019-10-26 05:18] LABS: Band Neutrophils 1 % (0-10); Hypochromasia 1+; Lymphocytes 7 % (20-55); Nucleated Red Blood Cells 1 (0-5); Ovalocytes Slight; Platelet Estimate Normal; Segmented Neutrophils 88 % (50-85); Total Cells Counted 100
[2019-10-26] MEDS: ASPIRIN CHEW 81 MG TABLET PO SCH (08:31)
[2019-10-26] MEDS: ZINC GLUCONATE 50 MG TABLET PO SCH (08:31)
[2019-10-26] MEDS: AMIODARONE 200 MG TABLET PO SCH (08:31)
[2019-10-26] MEDS: carvediloL 25 MG TABLET PO SCH ×2 (08:31→20:23)
[2019-10-26] MEDS: amLODIPine 10 MG TABLET PO SCH (08:31)
[2019-10-26] MEDS: PANTOPRAZOLE 40 MG VIAL IV SCH ×2 (08:31→20:23)
[2019-10-26] MEDS: methylPREDNISolone SOD SUC 40 MG/1 ML VIAL IV SCH (08:31)
[2019-10-26] MEDS: ASCORBIC ACID 500 MG TABLET PO SCH ×3 (10:27→20:23)
[2019-10-26] MEDS: ARFORMOTEROL 15 MCG/2 ML NEB RESP TX SCH ×2 (14:33→19:28)
[2019-10-26] MEDS: INSULIN GLARGINE 100 UNIT/ML SUBCUT SCH (20:22)
[2019-10-26] MEDS: APIXABAN 2.5 MG TABLET PER TUBE SCH (20:23)
[2019-10-26] MEDS: GABAPENTIN 50 MG/ML 30 ML/BOTTLE PO SCH (20:24)
[2019-10-27] MEDS: INSULIN LISPRO 100 UNIT/ML SUBCUT SCH ×4 (00:12→17:29)
[2019-10-27] MEDS: ceFAZolin 2,000 MG in PREMIX 1 EACH IV SCH ×3 (00:12→16:32)
[2019-10-27 03:35] LABS: ABG Base Excess 1.3 MMOL/L (-2.5-2.5); ABG HCO3 26.7 MMOL/L (20-26); ABG Oxygen Saturation 95.1 % (95-100); ABG PCO2 46.9 MM HG (35-48); ABG PH 7.374 (7.35-7.45); ABG TCO2 28.2 MMOL/L (23-27)
[2019-10-27 04:55] LABS: Basophils % 0.2 % (0.0-0.8); Eosinophils # 0.1 10*3/uL (0.0-0.87); Eosinophils % 0.9 % (0.00-10.9); Hematocrit 24.7 VOL% (35.7-47.0); Hemoglobin 7.9 GM/DL (12.0-16.0); Immature Granulocytes % 10.4 %; Immature Granulocytes Absolute 1.33 #; Lymphocytes # 1.1 10*3/uL (1.4-4.0); Lymphocytes % 8.9 % (21.3-54.2); Mean Corpuscular Volume 90.8 FL (87-102); Mean Platelet Volume 12.3 FL (9.6-12.0); Monocytes % 6.8 % (1.7-12.7); NRBC # 0.17 10*3/uL; Neutrophils % 72.8 % (38.7-73.9); Platelet Count 136 T/CUMM (130-400); Red Blood Count 2.72 MC/CUMM (3.8-5.5); Red Cell Distribution Width 16.7 % (9.3-17.3); White Blood Count 12.8 T/CUMM (4-12)
[2019-10-27 05:18] LABS: Band Neutrophils 3 % (0-10); Hypochromasia 1+; Lymphocytes 1 % (20-55); Metamyelocytes 1 %; Myelocytes 1 %; Nucleated Red Blood Cells 1 (0-5); Promyelocytes 1 %; Segmented Neutrophils 88 % (50-85); Total Cells Counted 100
[2019-10-27 05:19] LABS: Anisocytosis 1+
[2019-10-27 05:21] LABS: Smudge Cells Few
[2019-10-27] MEDS: SODIUM BICARB INJ 150 MEQ in STERILE WATER INJ 850 ML IV SCH ×2 (07:54→14:29)
[2019-10-27] MEDS: PANTOPRAZOLE 40 MG VIAL IV SCH ×2 (08:43→20:10)
[2019-10-27] MEDS: ZINC GLUCONATE 50 MG TABLET PO SCH (08:43)
[2019-10-27] MEDS: ASCORBIC ACID 500 MG TABLET PO SCH ×3 (08:43→20:11)
[2019-10-27] MEDS: ASPIRIN CHEW 81 MG TABLET PO SCH (08:43)
[2019-10-27] MEDS: AMIODARONE 200 MG TABLET PO SCH (08:43)
[2019-10-27] MEDS: APIXABAN 2.5 MG TABLET PER TUBE SCH (08:44)
[2019-10-27] MEDS: ARFORMOTEROL 15 MCG/2 ML NEB RESP TX SCH ×2 (08:45→20:04)
[2019-10-27] MEDS: amLODIPine 10 MG TABLET PO SCH (09:49)
[2019-10-27] MEDS: carvediloL 25 MG TABLET PO SCH ×2 (09:49→20:11)
[2019-10-27] MEDS: NOREPINEPHRINE 16 MG in SODIUM CHLORIDE 0.9% 234 ML IV PRN (14:30)
[2019-10-27] MEDS: INSULIN GLARGINE 100 UNIT/ML SUBCUT SCH (20:11)
[2019-10-27] MEDS: GABAPENTIN 50 MG/ML 30 ML/BOTTLE PO SCH (20:12)
[2019-10-28] MEDS: ceFAZolin 2,000 MG in PREMIX 1 EACH IV SCH ×4 (00:10→22:22)
[2019-10-28] MEDS: INSULIN LISPRO 100 UNIT/ML SUBCUT SCH ×4 (00:17→17:36)
[2019-10-28 03:05] LABS: Basophils % 0.2 % (0.0-0.8); Eosinophils # 0.3 10*3/uL (0.0-0.87); Eosinophils % 1.8 % (0.00-10.9); Hematocrit 24.1 VOL% (35.7-47.0); Hemoglobin 7.7 GM/DL (12.0-16.0); Immature Granulocytes % 6.6 %; Immature Granulocytes Absolute 0.98 #; Lymphocytes # 0.9 10*3/uL (1.4-4.0); Lymphocytes % 6.3 % (21.3-54.2); Mean Corpuscular Volume 90.6 FL (87-102); Mean Platelet Volume 12.7 FL (9.6-12.0); Monocytes % 5.3 % (1.7-12.7); NRBC # 0.05 10*3/uL; Neutrophils % 79.8 % (38.7-73.9); Platelet Count 147 T/CUMM (130-400); Red Blood Count 2.66 MC/CUMM (3.8-5.5); Red Cell Distribution Width 16.9 % (9.3-17.3); White Blood Count 14.8 T/CUMM (4-12)
[2019-10-28 03:14] LABS: Calcium 7.7 MG/DL (8.5-10.1); Osmolality,Calculated 318.1 MOS/KG (273-304)
[2019-10-28 03:42] LABS: ABG Base Excess 5.2 MMOL/L (-2.5-2.5); ABG HCO3 29.1 MMOL/L (20-26); ABG Oxygen Saturation 92.5 % (95-100); ABG PCO2 52.4 MM HG (35-48); ABG PH 7.382 (7.35-7.45); ABG PO2 65.2 MM HG (80-95); ABG TCO2 29.2 MMOL/L (23-27)
[2019-10-28 04:20] LABS: Band Neutrophils 5 % (0-10); Lymphocytes 8 % (20-55); Nucleated Red Blood Cells 1 (0-5); Segmented Neutrophils 85 % (50-85); Total Cells Counted 100
[2019-10-28 04:21] LABS: Anisocytosis 1+; Platelet Estimate Normal
[2019-10-28] MEDS: SODIUM BICARB INJ 150 MEQ in STERILE WATER INJ 850 ML IV SCH (05:55)
[2019-10-28] MEDS: ASPIRIN CHEW 81 MG TABLET PO SCH (08:30)
[2019-10-28] MEDS: carvediloL 25 MG TABLET PO SCH ×2 (09:17→20:33)
[2019-10-28] MEDS: AMIODARONE 200 MG TABLET PO SCH (09:17)
[2019-10-28] MEDS: ZINC GLUCONATE 50 MG TABLET PO SCH (09:17)
[2019-10-28] MEDS: PANTOPRAZOLE 40 MG VIAL IV SCH ×2 (09:17→20:33)
[2019-10-28] MEDS: ASCORBIC ACID 500 MG TABLET PO SCH ×3 (09:17→20:34)
[2019-10-28] MEDS: SODIUM CHLORIDE 0.9% 1,000 ML IV SCH (09:45)
[2019-10-28] MEDS: ARFORMOTEROL 15 MCG/2 ML NEB RESP TX SCH ×2 (10:00→19:00)
[2019-10-28] MEDS: NOREPINEPHRINE 16 MG in SODIUM CHLORIDE 0.9% 234 ML IV PRN (14:30)
[2019-10-28] MEDS: GABAPENTIN 50 MG/ML 30 ML/BOTTLE PO SCH (20:33)
[2019-10-28] MEDS: INSULIN GLARGINE 100 UNIT/ML SUBCUT SCH (20:33)
[2019-10-29] MEDS: INSULIN LISPRO 100 UNIT/ML SUBCUT SCH ×4 (00:40→18:20)
[2019-10-29] MEDS: SODIUM CHLORIDE 0.9% 1,000 ML IV SCH ×2 (01:01→18:01)
[2019-10-29 05:34] LABS: Basophils % 0.1 % (0.0-0.8); Eosinophils # 0.1 10*3/uL (0.0-0.87); Eosinophils % 0.9 % (0.00-10.9); Hematocrit 21.8 VOL% (35.7-47.0); Hemoglobin 7.3 GM/DL (12.0-16.0); Immature Granulocytes % 5.2 %; Immature Granulocytes Absolute 0.75 #; Lymphocytes # 0.6 10*3/uL (1.4-4.0); Lymphocytes % 3.8 % (21.3-54.2); Mean Corpuscular HGB Conc 33.5 GM/DL (32-36); Mean Corpuscular Volume 88.6 FL (87-102); Mean Platelet Volume 13.2 FL (9.6-12.0); Monocytes % 4.3 % (1.7-12.7); NRBC # 0.05 10*3/uL; Neutrophils % 85.7 % (38.7-73.9); Platelet Count 135 T/CUMM (130-400); Red Blood Count 2.46 MC/CUMM (3.8-5.5); Red Cell Distribution Width 17.1 % (9.3-17.3); White Blood Count 14.4 T/CUMM (4-12)
[2019-10-29 05:36] LABS: ABG Base Excess 5.1 MMOL/L (-2.5-2.5); ABG HCO3 30.2 MMOL/L (20-26); ABG PCO2 47.9 MM HG (35-48); ABG PH 7.418 (7.35-7.45); ABG PO2 48.3 MM HG (80-95); ABG TCO2 31.7 MMOL/L (23-27); Allen Test Positive; Pt O2 Delivery Device Ventilator
[2019-10-29 05:48] LABS: Calcium 7.9 MG/DL (8.5-10.1)
[2019-10-29 06:01] LABS: Band Neutrophils 8 % (0-10); Eosinophils 2 % (0-10); Lymphocytes 1 % (20-55); Metamyelocytes 3 %; Segmented Neutrophils 85 % (50-85); Total Cells Counted 100
[2019-10-29 06:02] LABS: Anisocytosis 1+; Hypochromasia 1+; Microcytosis 1+; Polychromasia Slight
[2019-10-29 06:03] LABS: Platelet Estimate Adequate
[2019-10-29] MEDS: ceFAZolin 2,000 MG in PREMIX 1 EACH IV SCH ×3 (06:20→23:46)
[2019-10-29] MEDS: ASCORBIC ACID 500 MG TABLET PO SCH ×3 (09:09→21:17)
[2019-10-29] MEDS: ZINC GLUCONATE 50 MG TABLET PO SCH (09:09)
[2019-10-29] MEDS: carvediloL 25 MG TABLET PO SCH ×2 (09:10→21:17)
[2019-10-29] MEDS: PANTOPRAZOLE 40 MG VIAL IV SCH ×2 (09:10→21:17)
[2019-10-29] MEDS: ASPIRIN CHEW 81 MG TABLET PO SCH (09:10)
[2019-10-29] MEDS: AMIODARONE 200 MG TABLET PO SCH (09:10)
[2019-10-29] MEDS: ARFORMOTEROL 15 MCG/2 ML NEB RESP TX SCH (11:33)
[2019-10-29 18:38] LABS: INR 1.1; PT Patient Result 11.4 SECS (9.8-11.9); Partial Thromboplastin Time 27.2 SECS (23.9-33.8)
[2019-10-29] MEDS: INSULIN GLARGINE 100 UNIT/ML SUBCUT SCH (21:16)
[2019-10-29] MEDS: GABAPENTIN 50 MG/ML 30 ML/BOTTLE PO SCH (22:04)
[2019-10-30] MEDS: INSULIN LISPRO 100 UNIT/ML SUBCUT SCH ×4 (00:53→17:49)
[2019-10-30 04:57] LABS: Allen Test Positive; Pt O2 Delivery Device Ventilator
[2019-10-30 04:59] LABS: ABG Base Excess 3.7 MMOL/L (-2.5-2.5); ABG HCO3 28.8 MMOL/L (20-26); ABG PCO2 47.4 MM HG (35-48); ABG PH 7.402 (7.35-7.45); ABG PO2 49.2 MM HG (80-95); ABG TCO2 30.3 MMOL/L (23-27)
[2019-10-30 05:38] LABS: Eosinophils # 0.2 10*3/uL (0.0-0.87); Eosinophils % 1.2 % (0.00-10.9); Hematocrit 20.6 VOL% (35.7-47.0); Immature Granulocytes % 5.5 %; Immature Granulocytes Absolute 0.74 #; Lymphocytes # 0.7 10*3/uL (1.4-4.0); Lymphocytes % 4.9 % (21.3-54.2); Mean Corpuscular HGB Conc 30.6 GM/DL (32-36); Mean Corpuscular Volume 94.5 FL (87-102); Mean Platelet Volume 13.1 FL (9.6-12.0); Monocytes % 5.1 % (1.7-12.7); NRBC # 0.04 10*3/uL; Neutrophils % 83.3 % (38.7-73.9); Platelet Count 140 T/CUMM (130-400); Red Blood Count 2.18 MC/CUMM (3.8-5.5); Red Cell Distribution Width 17.3 % (9.3-17.3); White Blood Count 13.4 T/CUMM (4-12)
[2019-10-30 05:46] LABS: Hemoglobin 6.3 GM/DL (12.0-16.0)
[2019-10-30] MEDS ORDERED: SODIUM CHLORIDE 0.9% 1,000 ML IV PRN (05:56)
[2019-10-30 06:02] LABS: Calcium 8.1 MG/DL (8.5-10.1); Osmolality,Calculated 318.5 MOS/KG (273-304)
[2019-10-30 06:28] LABS: Eosinophils 1 % (0-10); Total Cells Counted 100
[2019-10-30 06:29] LABS: Anisocytosis 1+; Band Neutrophils 2 % (0-10); Hypochromasia 2+; Lymphocytes 5 % (20-55); Macrocytosis 1+; Metamyelocytes 2 %; Platelet Estimate Adequate; Segmented Neutrophils 87 % (50-85)
[2019-10-30] MEDS ORDERED: MIDAZOLAM 2 MG/2 ML VIAL ONE (06:42)
[2019-10-30] MEDS ORDERED: MIDAZOLAM 10 MG/2 ML VIAL ONE (06:42)
[2019-10-30] MEDS ORDERED: ROCURONIUM 100 MG/10 ML VIAL IV ONE (06:42)
[2019-10-30] MEDS: ceFAZolin 2,000 MG in PREMIX 1 EACH IV SCH (06:48)
[2019-10-30] MEDS: ARFORMOTEROL 15 MCG/2 ML NEB RESP TX SCH ×2 (08:40→19:49)
[2019-10-30] MEDS: ASPIRIN CHEW 81 MG TABLET PO SCH (09:06)
[2019-10-30] MEDS: carvediloL 25 MG TABLET PO SCH ×2 (09:06→20:51)
[2019-10-30] MEDS: ZINC GLUCONATE 50 MG TABLET PO SCH (09:06)
[2019-10-30] MEDS: AMIODARONE 200 MG TABLET PO SCH (09:06)
[2019-10-30] MEDS: ASCORBIC ACID 500 MG TABLET PO SCH ×3 (09:06→20:51)
[2019-10-30] MEDS: PANTOPRAZOLE 40 MG VIAL IV SCH ×2 (09:10→20:48)
[2019-10-30] MEDS: MEROPENEM 500 MG in SODIUM CHLORIDE 0.9% 100 ML IV SCH ×2 (09:53→17:47)
[2019-10-30] MEDS ORDERED: VANCOMYCIN INJ 500 MG in SODIUM CHLORIDE 0.9% 100 ML IV SCH (10:00)
[2019-10-30] MEDS ORDERED: VANCOMYCIN INJ 1,500 MG in SODIUM CHLORIDE 0.9% 500 ML IV SCH (11:00)
[2019-10-30] MEDS: SODIUM CHLORIDE 0.9% 1,000 ML IV SCH ×2 (12:39→14:25)
[2019-10-30] MEDS: MORPHINE 4 MG/1 ML VIAL IV PRN (12:42)
[2019-10-30 13:13] LABS: Hematocrit 25.3 VOL% (35.7-47.0); Hemoglobin 7.9 GM/DL (12.0-16.0)
[2019-10-30] MEDS: INSULIN GLARGINE 100 UNIT/ML SUBCUT SCH (20:50)
[2019-10-30] MEDS: GABAPENTIN 50 MG/ML 30 ML/BOTTLE PO SCH (20:51)
[2019-10-31] MEDS: MORPHINE 4 MG/1 ML VIAL IV PRN ×3 (01:32→21:45)
[2019-10-31] MEDS: MEROPENEM 500 MG in SODIUM CHLORIDE 0.9% 100 ML IV SCH ×3 (02:06→17:24)
[2019-10-31] MEDS: INSULIN LISPRO 100 UNIT/ML SUBCUT SCH ×4 (02:06→17:55)
[2019-10-31 04:08] LABS: Basophils % 0.2 % (0.0-0.8); Eosinophils # 0.1 10*3/uL (0.0-0.87); Hematocrit 22.3 VOL% (35.7-47.0); Hemoglobin 7.1 GM/DL (12.0-16.0); Immature Granulocytes % 5.2 %; Immature Granulocytes Absolute 0.68 #; Lymphocytes # 0.7 10*3/uL (1.4-4.0); Lymphocytes % 5.1 % (21.3-54.2); Mean Corpuscular HGB Conc 31.8 GM/DL (32-36); Mean Corpuscular Volume 93.3 FL (87-102); Mean Platelet Volume 12.2 FL (9.6-12.0); Monocytes % 5.3 % (1.7-12.7); NRBC # 0.05 10*3/uL; Neutrophils % 83.2 % (38.7-73.9); Platelet Count 144 T/CUMM (130-400); Red Blood Count 2.39 MC/CUMM (3.8-5.5); Red Cell Distribution Width 17.3 % (9.3-17.3); White Blood Count 13.1 T/CUMM (4-12)
[2019-10-31 04:11] LABS: ABG Base Excess 1.2 MMOL/L (-2.5-2.5); ABG HCO3 24.9 MMOL/L (20-26); ABG Oxygen Saturation 97.8 % (95-100); ABG PCO2 35.8 MM HG (35-48); ABG PH 7.461 (7.35-7.45); ABG PO2 112.9 MM HG (80-95); Allen Test Positive; Pt O2 Delivery Device Ventilator
[2019-10-31 04:25] LABS: Calcium 8.1 MG/DL (8.5-10.1)
[2019-10-31] MEDS: ARFORMOTEROL 15 MCG/2 ML NEB RESP TX SCH ×3 (07:41→19:00)
[2019-10-31] MEDS: carvediloL 25 MG TABLET PO SCH ×2 (08:23→21:37)
[2019-10-31] MEDS: ASPIRIN CHEW 81 MG TABLET PO SCH (08:23)
[2019-10-31] MEDS: ZINC GLUCONATE 50 MG TABLET PO SCH (08:23)
[2019-10-31] MEDS: AMIODARONE 200 MG TABLET PO SCH (08:23)
[2019-10-31] MEDS: PANTOPRAZOLE 40 MG VIAL IV SCH ×2 (08:23→21:42)
[2019-10-31] MEDS: ASCORBIC ACID 500 MG TABLET PO SCH ×3 (08:23→21:37)
[2019-10-31 09:00] LABS: Band Neutrophils 5 % (0-10); Lymphocytes 3 % (20-55); Metamyelocytes 1 %; Segmented Neutrophils 86 % (50-85); Total Cells Counted 100
[2019-10-31 09:02] LABS: Anisocytosis 1+; Macrocytosis 1+; Platelet Estimate Decreased
[2019-10-31] MEDS: SODIUM CHLORIDE 0.9% 1,000 ML IV SCH ×2 (09:15→17:55)
[2019-10-31] MEDS: VANCOMYCIN INJ 1,250 MG in SODIUM CHLORIDE 0.9% 250 ML IV SCH (11:11)
[2019-10-31] MEDS: GABAPENTIN 50 MG/ML 30 ML/BOTTLE PO SCH (21:37)
[2019-10-31] MEDS: INSULIN GLARGINE 100 UNIT/ML SUBCUT SCH (23:20)
[2019-11-01] MEDS: INSULIN LISPRO 100 UNIT/ML SUBCUT SCH ×5 (01:00→23:25)
[2019-11-01] MEDS: MEROPENEM 500 MG in SODIUM CHLORIDE 0.9% 100 ML IV SCH ×3 (01:43→18:34)
[2019-11-01 03:16] LABS: ABG HCO3 24.8 MMOL/L (20-26); ABG PCO2 41.1 MM HG (35-48); ABG PH 7.399 (7.35-7.45); ABG TCO2 26.1 MMOL/L (23-27)
[2019-11-01 05:18] LABS: Basophils % 0.1 % (0.0-0.8); Eosinophils # 0.2 10*3/uL (0.0-0.87); Eosinophils % 1.7 % (0.00-10.9); Hematocrit 22.7 VOL% (35.7-47.0); Hemoglobin 7.2 GM/DL (12.0-16.0); Immature Granulocytes % 4.8 %; Immature Granulocytes Absolute 0.67 #; Lymphocytes # 0.9 10*3/uL (1.4-4.0); Lymphocytes % 6.4 % (21.3-54.2); Mean Corpuscular HGB Conc 31.7 GM/DL (32-36); Mean Corpuscular Volume 96.6 FL (87-102); Mean Platelet Volume 12.6 FL (9.6-12.0); NRBC # 0.02 10*3/uL; Platelet Count 151 T/CUMM (130-400); Red Blood Count 2.35 MC/CUMM (3.8-5.5); Red Cell Distribution Width 17.8 % (9.3-17.3); White Blood Count 13.9 T/CUMM (4-12)
[2019-11-01 05:23] LABS: Osmolality,Calculated 329.6 MOS/KG (273-304)
[2019-11-01] MEDS: SODIUM CHLORIDE 0.9% 1,000 ML IV SCH (05:38)
[2019-11-01 06:47] LABS: Band Neutrophils 5 % (0-10); Lymphocytes 6 % (20-55); Metamyelocytes 1 %; Nucleated Red Blood Cells 2 (0-5); Platelet Estimate Adequate; Segmented Neutrophils 82 % (50-85); Total Cells Counted 100
[2019-11-01 06:48] LABS: Anisocytosis 1+; Hypochromasia 2+; Macrocytosis 1+; Ovalocytes 1+; Polychromasia 2+
[2019-11-01] MEDS: ASPIRIN CHEW 81 MG TABLET PO SCH (08:13)
[2019-11-01] MEDS: AMIODARONE 200 MG TABLET PO SCH (08:13)
[2019-11-01] MEDS: ASCORBIC ACID 500 MG TABLET PO SCH ×3 (08:14→20:10)
[2019-11-01] MEDS: PANTOPRAZOLE 40 MG VIAL IV SCH ×2 (08:14→20:00)
[2019-11-01] MEDS: carvediloL 25 MG TABLET PO SCH ×2 (08:14→20:10)
[2019-11-01] MEDS: ZINC GLUCONATE 50 MG TABLET PO SCH (08:14)
[2019-11-01] MEDS: MORPHINE 4 MG/1 ML VIAL IV PRN ×2 (08:24→20:10)
[2019-11-01] MEDS: ARFORMOTEROL 15 MCG/2 ML NEB RESP TX SCH ×3 (10:51→20:06)
[2019-11-01] MEDS: VANCOMYCIN INJ 1,250 MG in SODIUM CHLORIDE 0.9% 250 ML IV SCH ×2 (15:52→21:15)
[2019-11-01] MEDS: GABAPENTIN 50 MG/ML 30 ML/BOTTLE PO SCH (20:10)
[2019-11-01] MEDS: INSULIN GLARGINE 100 UNIT/ML SUBCUT SCH (20:10)
[2019-11-02] MEDS: MEROPENEM 500 MG in SODIUM CHLORIDE 0.9% 100 ML IV SCH (02:56)
[2019-11-02 04:13] LABS: ABG Base Excess -1.9 MMOL/L (-2.5-2.5); ABG HCO3 23.4 MMOL/L (20-26); ABG Oxygen Saturation 95.6 % (95-100); ABG PCO2 41.9 MM HG (35-48); ABG PH 7.364 (7.35-7.45); ABG PO2 84.2 MM HG (80-95); ABG TCO2 24.6 MMOL/L (23-27)
[2019-11-02 05:00] LABS: Basophils % 0.1 % (0.0-0.8); Eosinophils # 0.4 10*3/uL (0.0-0.87); Eosinophils % 2.5 % (0.00-10.9); Hematocrit 23.7 VOL% (35.7-47.0); Hemoglobin 7.4 GM/DL (12.0-16.0); Immature Granulocytes % 4.3 %; Immature Granulocytes Absolute 0.68 #; Lymphocytes % 6.5 % (21.3-54.2); Mean Corpuscular HGB Conc 31.2 GM/DL (32-36); Mean Platelet Volume 11.6 FL (9.6-12.0); Monocytes % 5.9 % (1.7-12.7); NRBC # 0.05 10*3/uL; Neutrophils % 80.7 % (38.7-73.9); Platelet Count 160 T/CUMM (130-400); Red Blood Count 2.47 MC/CUMM (3.8-5.5); Red Cell Distribution Width 17.5 % (9.3-17.3); White Blood Count 15.9 T/CUMM (4-12)
[2019-11-02 05:19] LABS: Calcium 8.4 MG/DL (8.5-10.1); Osmolality,Calculated 329.6 MOS/KG (273-304)
[2019-11-02 05:32] LABS: Band Neutrophils 3 % (0-10); Eosinophils 3 % (0-10); Lymphocytes 6 % (20-55); Segmented Neutrophils 83 % (50-85); Total Cells Counted 100
[2019-11-02 05:33] LABS: Hypochromasia 1+; Microcytosis Slight; Platelet Estimate Adequate
[2019-11-02] MEDS: INSULIN LISPRO 100 UNIT/ML SUBCUT SCH ×3 (06:26→18:30)
[2019-11-02] MEDS: ARFORMOTEROL 15 MCG/2 ML NEB RESP TX SCH ×2 (07:25→19:35)
[2019-11-02] MEDS ORDERED: FUROSEMIDE 40 MG/4 ML VIAL IV ONE (08:19)
[2019-11-02] MEDS: carvediloL 25 MG TABLET PO SCH ×2 (09:00→20:00)
[2019-11-02] MEDS: ZINC GLUCONATE 50 MG TABLET PO SCH (09:00)
[2019-11-02] MEDS: AMIODARONE 200 MG TABLET PO SCH (09:00)
[2019-11-02] MEDS: ASCORBIC ACID 500 MG TABLET PO SCH ×3 (09:00→20:00)
[2019-11-02] MEDS: PANTOPRAZOLE 40 MG VIAL IV SCH ×2 (09:00→20:01)
[2019-11-02] MEDS: ASPIRIN CHEW 81 MG TABLET PO SCH (09:00)
[2019-11-02] MEDS: COLLAGENASE OINT 30 GM TUBE TOP SCH ×2 (10:05→11:55)
[2019-11-02] MEDS: CIPROFLOXACIN INJ 400 MG in PREMIX 1 EACH IV SCH (12:09)
[2019-11-02] MEDS ORDERED: MEROPENEM 500 MG in SODIUM CHLORIDE 0.9% 100 ML IV SCH (14:00)
[2019-11-02] MEDS: INSULIN GLARGINE 100 UNIT/ML SUBCUT SCH (20:01)
[2019-11-02] MEDS: GABAPENTIN 50 MG/ML 30 ML/BOTTLE PO SCH (20:40)
[2019-11-03] MEDS: INSULIN LISPRO 100 UNIT/ML SUBCUT SCH ×4 (00:39→17:22)
[2019-11-03 05:13] LABS: Allen Test Positive; Pt O2 Delivery Device Ventilator
[2019-11-03 05:17] LABS: ABG Base Excess -0.9 MMOL/L (-2.5-2.5); ABG HCO3 23.6 MMOL/L (20-26); ABG Oxygen Saturation 93.7 % (95-100); ABG PCO2 43.7 MM HG (35-48); ABG PH 7.358 (7.35-7.45); ABG PO2 70.5 MM HG (80-95); ABG TCO2 22.9 MMOL/L (23-27)
[2019-11-03 05:42] LABS: Basophils % 0.1 % (0.0-0.8); Eosinophils # 0.6 10*3/uL (0.0-0.87); Eosinophils % 3.4 % (0.00-10.9); Hematocrit 22.8 VOL% (35.7-47.0); Hemoglobin 7.1 GM/DL (12.0-16.0); Immature Granulocytes % 2.7 %; Immature Granulocytes Absolute 0.48 #; Lymphocytes % 5.6 % (21.3-54.2); Mean Corpuscular HGB Conc 31.1 GM/DL (32-36); Mean Corpuscular Volume 96.6 FL (87-102); Mean Platelet Volume 11.8 FL (9.6-12.0); Monocytes % 5.7 % (1.7-12.7); NRBC # 0.05 10*3/uL; Neutrophils % 82.5 % (38.7-73.9); Platelet Count 156 T/CUMM (130-400); Red Blood Count 2.36 MC/CUMM (3.8-5.5); Red Cell Distribution Width 17.8 % (9.3-17.3); White Blood Count 17.6 T/CUMM (4-12)
[2019-11-03 06:02] LABS: Calcium 8.2 MG/DL (8.5-10.1); Osmolality,Calculated 325.8 MOS/KG (273-304)
[2019-11-03] MEDS: ARFORMOTEROL 15 MCG/2 ML NEB RESP TX SCH ×2 (07:42→23:41)
[2019-11-03] MEDS: AMIODARONE 200 MG TABLET PO SCH (08:06)
[2019-11-03] MEDS: PANTOPRAZOLE 40 MG VIAL IV SCH ×2 (08:06→20:19)
[2019-11-03] MEDS: carvediloL 25 MG TABLET PO SCH ×2 (08:06→20:22)
[2019-11-03] MEDS: ASCORBIC ACID 500 MG TABLET PO SCH ×3 (08:06→20:22)
[2019-11-03] MEDS: ASPIRIN CHEW 81 MG TABLET PO SCH (08:06)
[2019-11-03] MEDS: COLLAGENASE OINT 30 GM TUBE TOP SCH (08:07)
[2019-11-03] MEDS: ZINC GLUCONATE 50 MG TABLET PO SCH (08:07)
[2019-11-03] MEDS: VANCOMYCIN INJ 1,250 MG in SODIUM CHLORIDE 0.9% 250 ML IV SCH (08:37)
[2019-11-03] MEDS: CIPROFLOXACIN INJ 400 MG in PREMIX 1 EACH IV SCH (11:00)
[2019-11-03] MEDS ORDERED: FUROSEMIDE 40 MG/4 ML VIAL IV PRN (13:48)
[2019-11-03] MEDS ORDERED: SODIUM CHLORIDE 0.9% 1,000 ML IV PRN (13:48)
[2019-11-03] MEDS: methylPREDNISolone SOD SUC 40 MG/1 ML VIAL IV SCH ×2 (14:26→21:54)
[2019-11-03] MEDS: MORPHINE 4 MG/1 ML VIAL IV PRN (20:20)
[2019-11-03] MEDS: INSULIN GLARGINE 100 UNIT/ML SUBCUT SCH (20:21)
[2019-11-03] MEDS: GABAPENTIN 50 MG/ML 30 ML/BOTTLE PO SCH (20:22)
[2019-11-03] MEDS: SODIUM CHLORIDE 0.9% 1,000 ML IV SCH (20:50)
[2019-11-04] MEDS: INSULIN LISPRO 100 UNIT/ML SUBCUT SCH ×4 (00:01→17:50)
[2019-11-04 04:10] LABS: Basophils % 0.2 % (0.0-0.8); Eosinophils # 0.5 10*3/uL (0.0-0.87); Eosinophils % 2.6 % (0.00-10.9); Hematocrit 29.3 VOL% (35.7-47.0); Immature Granulocytes % 2.4 %; Immature Granulocytes Absolute 0.42 #; Lymphocytes % 5.9 % (21.3-54.2); Mean Corpuscular HGB Conc 32.8 GM/DL (32-36); Mean Corpuscular Volume 92.1 FL (87-102); Mean Platelet Volume 11.5 FL (9.6-12.0); Monocytes % 2.1 % (1.7-12.7); NRBC # 0.06 10*3/uL; Neutrophils % 86.8 % (38.7-73.9); Platelet Count 130 T/CUMM (130-400); Red Cell Distribution Width 17.2 % (9.3-17.3); White Blood Count 17.5 T/CUMM (4-12)
[2019-11-04 04:16] LABS: Hemoglobin 9.6 GM/DL (12.0-16.0); Red Blood Count 3.18 MC/CUMM (3.8-5.5)
[2019-11-04 04:38] LABS: Allen Test Positive; Pt O2 Delivery Device Ventilator
[2019-11-04 04:39] LABS: ABG Base Excess -3.4 MMOL/L (-2.5-2.5); ABG HCO3 21.5 MMOL/L (20-26); ABG PCO2 38.3 MM HG (35-48); ABG PH 7.368 (7.35-7.45); ABG TCO2 22.7 MMOL/L (23-27)
[2019-11-04 04:50] LABS: Calcium 8.5 MG/DL (8.5-10.1); Osmolality,Calculated 326.4 MOS/KG (273-304)
[2019-11-04] MEDS: methylPREDNISolone SOD SUC 40 MG/1 ML VIAL IV SCH ×3 (07:02→22:00)
[2019-11-04] MEDS: ASCORBIC ACID 500 MG TABLET PO SCH ×3 (08:15→20:11)
[2019-11-04] MEDS: ASPIRIN CHEW 81 MG TABLET PO SCH (08:16)
[2019-11-04] MEDS ORDERED: metOLazone 5 MG TABLET PO ONE (08:16)
[2019-11-04] MEDS: AMIODARONE 200 MG TABLET PO SCH (08:16)
[2019-11-04] MEDS: COLLAGENASE OINT 30 GM TUBE TOP SCH (08:16)
[2019-11-04] MEDS: ZINC GLUCONATE 50 MG TABLET PO SCH (08:16)
[2019-11-04] MEDS: carvediloL 25 MG TABLET PO SCH ×2 (08:16→20:12)
[2019-11-04] MEDS: PANTOPRAZOLE 40 MG VIAL IV SCH ×2 (08:28→20:11)
[2019-11-04] MEDS ORDERED: FUROSEMIDE 100 MG/10 ML VIAL IV ONE (08:30)
[2019-11-04] MEDS: MORPHINE 4 MG/1 ML VIAL IV PRN (09:25)
[2019-11-04] MEDS: CIPROFLOXACIN INJ 400 MG in PREMIX 1 EACH IV SCH (10:38)
[2019-11-04] MEDS: ARFORMOTEROL 15 MCG/2 ML NEB RESP TX SCH ×2 (10:52→20:16)
[2019-11-04 12:36] LABS: Calcium 8.4 MG/DL (8.5-10.1); Osmolality,Calculated 327.4 MOS/KG (273-304)
[2019-11-04] MEDS: INSULIN GLARGINE 100 UNIT/ML SUBCUT SCH (20:11)
[2019-11-04] MEDS: GABAPENTIN 50 MG/ML 30 ML/BOTTLE PO SCH (20:12)
[2019-11-05] MEDS: INSULIN LISPRO 100 UNIT/ML SUBCUT SCH ×4 (00:11→17:12)
[2019-11-05 04:38] LABS: ABG Base Excess -4.4 MMOL/L (-2.5-2.5); ABG HCO3 20.7 MMOL/L (20-26); ABG Oxygen Saturation 96.3 % (95-100); ABG PCO2 38.3 MM HG (35-48); ABG PH 7.351 (7.35-7.45); ABG PO2 91.5 MM HG (80-95); ABG TCO2 21.9 MMOL/L (23-27)
[2019-11-05 04:51] LABS: Basophils % 0.1 % (0.0-0.8); Eosinophils # 0.2 10*3/uL (0.0-0.87); Eosinophils % 1.3 % (0.00-10.9); Hematocrit 28.8 VOL% (35.7-47.0); Hemoglobin 9.3 GM/DL (12.0-16.0); Immature Granulocytes % 1.7 %; Lymphocytes # 0.9 10*3/uL (1.4-4.0); Mean Corpuscular HGB Conc 32.3 GM/DL (32-36); Mean Corpuscular Volume 94.1 FL (87-102); Mean Platelet Volume 11.6 FL (9.6-12.0); Monocytes % 2.8 % (1.7-12.7); NRBC # 0.05 10*3/uL; Neutrophils % 89.1 % (38.7-73.9); Platelet Count 139 T/CUMM (130-400); Red Blood Count 3.06 MC/CUMM (3.8-5.5); Red Cell Distribution Width 17.3 % (9.3-17.3); White Blood Count 18.1 T/CUMM (4-12)
[2019-11-05] MEDS: methylPREDNISolone SOD SUC 40 MG/1 ML VIAL IV SCH ×3 (06:25→22:05)
[2019-11-05 06:33] LABS: Calcium 8.8 MG/DL (8.5-10.1); Osmolality,Calculated 324.7 MOS/KG (273-304)
[2019-11-05] MEDS: SODIUM CHLORIDE 0.9% 1,000 ML IV SCH ×2 (07:22→20:43)
[2019-11-05] MEDS: ASCORBIC ACID 500 MG TABLET PO SCH ×3 (08:34→20:42)
[2019-11-05] MEDS: PANTOPRAZOLE 40 MG VIAL IV SCH ×2 (08:34→20:42)
[2019-11-05] MEDS: AMIODARONE 200 MG TABLET PO SCH (08:34)
[2019-11-05] MEDS: carvediloL 25 MG TABLET PO SCH ×2 (08:34→20:42)
[2019-11-05] MEDS: ZINC GLUCONATE 50 MG TABLET PO SCH (08:34)
[2019-11-05] MEDS: ASPIRIN CHEW 81 MG TABLET PO SCH (08:34)
[2019-11-05] MEDS: COLLAGENASE OINT 30 GM TUBE TOP SCH (08:43)
[2019-11-05] MEDS ORDERED: VANCOMYCIN INJ 1,250 MG in SODIUM CHLORIDE 0.9% 250 ML IV SCH (09:00)
[2019-11-05] MEDS: CIPROFLOXACIN INJ 400 MG in PREMIX 1 EACH IV SCH (10:03)
[2019-11-05 10:37] LABS: Hepatitis B Core IgM Quant 0.24 Index; Hepatitis B Surface Ag Quant < 0.10 Index; Hepatitis B Surface Ag Result Negative (Negative); Hepatitis C Virus Ab Quant 0.16 Index; Hepatitis C Virus Ab Result Negative (Negative)
[2019-11-05] MEDS ORDERED: HEPARIN 10,000 UNIT/10 ML VIAL IV PRN (14:06)
[2019-11-05] MEDS: ARFORMOTEROL 15 MCG/2 ML NEB RESP TX SCH ×2 (14:21→21:29)
[2019-11-05] MEDS: MORPHINE 4 MG/1 ML VIAL IV PRN (17:34)
[2019-11-05] MEDS: INSULIN GLARGINE 100 UNIT/ML SUBCUT SCH (20:42)
[2019-11-05] MEDS: GABAPENTIN 50 MG/ML 30 ML/BOTTLE PO SCH (20:43)
[2019-11-06] MEDS: INSULIN LISPRO 100 UNIT/ML SUBCUT SCH ×5 (00:36→20:30)
[2019-11-06 03:45] LABS: ABG Base Excess -2.3 MMOL/L (-2.5-2.5); ABG HCO3 21.5 MMOL/L (20-26); ABG PCO2 33.3 MM HG (35-48); ABG PH 7.428 (7.35-7.45); ABG PO2 78.5 MM HG (80-95); ABG TCO2 22.5 MMOL/L (23-27)
[2019-11-06 05:16] LABS: Basophils % 0.1 % (0.0-0.8); Eosinophils # 0.2 10*3/uL (0.0-0.87); Eosinophils % 1.6 % (0.00-10.9); Hematocrit 27.5 VOL% (35.7-47.0); Hemoglobin 8.9 GM/DL (12.0-16.0); Immature Granulocytes % 1.3 %; Immature Granulocytes Absolute 0.17 #; Lymphocytes # 0.8 10*3/uL (1.4-4.0); Lymphocytes % 5.6 % (21.3-54.2); Mean Corpuscular HGB Conc 32.4 GM/DL (32-36); Mean Corpuscular Volume 92.6 FL (87-102); Mean Platelet Volume 11.7 FL (9.6-12.0); Monocytes % 3.5 % (1.7-12.7); NRBC # 0.05 10*3/uL; Neutrophils % 87.9 % (38.7-73.9); Platelet Count 124 T/CUMM (130-400); Red Blood Count 2.97 MC/CUMM (3.8-5.5); Red Cell Distribution Width 17.2 % (9.3-17.3); White Blood Count 13.4 T/CUMM (4-12)
[2019-11-06 05:25] LABS: Calcium 8.5 MG/DL (8.5-10.1); Osmolality,Calculated 316.7 MOS/KG (273-304)
[2019-11-06] MEDS: methylPREDNISolone SOD SUC 40 MG/1 ML VIAL IV SCH ×3 (06:06→23:00)
[2019-11-06] MEDS: ARFORMOTEROL 15 MCG/2 ML NEB RESP TX SCH ×2 (08:00→19:05)
[2019-11-06] MEDS: PANTOPRAZOLE 40 MG VIAL IV SCH ×2 (08:32→20:30)
[2019-11-06] MEDS: carvediloL 25 MG TABLET PO SCH ×2 (08:32→20:30)
[2019-11-06] MEDS: AMIODARONE 200 MG TABLET PO SCH (08:32)
[2019-11-06] MEDS: ASPIRIN CHEW 81 MG TABLET PO SCH (08:32)
[2019-11-06] MEDS: COLLAGENASE OINT 30 GM TUBE TOP SCH (08:33)
[2019-11-06] MEDS: ZINC GLUCONATE 50 MG TABLET PO SCH (08:33)
[2019-11-06] MEDS: ASCORBIC ACID 500 MG TABLET PO SCH ×3 (08:33→20:30)
[2019-11-06] MEDS: amLODIPine 5 MG TABLET PO SCH (10:05)
[2019-11-06] MEDS: CIPROFLOXACIN INJ 400 MG in PREMIX 1 EACH IV SCH (11:01)
[2019-11-06] MEDS: SODIUM CHLORIDE 0.9% 1,000 ML IV SCH (18:07)
[2019-11-06] MEDS: GABAPENTIN 50 MG/ML 30 ML/BOTTLE PO SCH (20:30)
[2019-11-06] MEDS: INSULIN GLARGINE 100 UNIT/ML SUBCUT SCH (20:31)
[2019-11-06] MEDS: MORPHINE 4 MG/1 ML VIAL IV PRN (20:31)
[2019-11-06] MEDS ORDERED: APIXABAN 5 MG TABLET PO SCH (21:00)
[2019-11-07] MEDS: SODIUM CHLORIDE 0.9% 1,000 ML IV SCH ×2 (01:21→21:00)
[2019-11-07] MEDS: INSULIN LISPRO 100 UNIT/ML SUBCUT SCH ×6 (01:23→20:16)
[2019-11-07] MEDS: methylPREDNISolone SOD SUC 40 MG/1 ML VIAL IV SCH ×3 (04:30→22:00)
[2019-11-07 04:56] LABS: ABG Base Excess -0.7 MMOL/L (-2.5-2.5); ABG HCO3 23.8 MMOL/L (20-26); ABG Oxygen Saturation 96.9 % (95-100); ABG PCO2 38.9 MM HG (35-48); ABG PH 7.397 (7.35-7.45); ABG PO2 87.1 MM HG (80-95); ABG TCO2 21.8 MMOL/L (23-27); Allen Test Positive; Pt O2 Delivery Device Ventilator
[2019-11-07 05:30] LABS: Basophils % 0.2 % (0.0-0.8); Eosinophils # 0.2 10*3/uL (0.0-0.87); Eosinophils % 1.2 % (0.00-10.9); Hematocrit 28.4 VOL% (35.7-47.0); Hemoglobin 9.2 GM/DL (12.0-16.0); Immature Granulocytes % 0.8 %; Lymphocytes # 0.9 10*3/uL (1.4-4.0); Lymphocytes % 6.7 % (21.3-54.2); Mean Corpuscular HGB Conc 32.4 GM/DL (32-36); Mean Corpuscular Volume 92.2 FL (87-102); Mean Platelet Volume 11.2 FL (9.6-12.0); Monocytes % 4.5 % (1.7-12.7); NRBC # 0.03 10*3/uL; Neutrophils % 86.6 % (38.7-73.9); Platelet Count 100 T/CUMM (130-400); Red Blood Count 3.08 MC/CUMM (3.8-5.5); White Blood Count 12.9 T/CUMM (4-12)
[2019-11-07 05:46] LABS: Calcium 8.3 MG/DL (8.5-10.1)
[2019-11-07] MEDS: ZINC GLUCONATE 50 MG TABLET PO SCH (08:00)
[2019-11-07] MEDS: ARFORMOTEROL 15 MCG/2 ML NEB RESP TX SCH ×2 (08:00→20:16)
[2019-11-07] MEDS: PANTOPRAZOLE 40 MG VIAL IV SCH ×2 (08:00→20:16)
[2019-11-07] MEDS: carvediloL 25 MG TABLET PO SCH ×2 (08:00→20:17)
[2019-11-07] MEDS: amLODIPine 5 MG TABLET PO SCH (08:00)
[2019-11-07] MEDS: ASCORBIC ACID 500 MG TABLET PO SCH ×3 (08:00→20:17)
[2019-11-07] MEDS: AMIODARONE 200 MG TABLET PO SCH (08:00)
[2019-11-07] MEDS: ASPIRIN CHEW 81 MG TABLET PO SCH (08:00)
[2019-11-07] MEDS: COLLAGENASE OINT 30 GM TUBE TOP SCH (08:01)
[2019-11-07] MEDS: CIPROFLOXACIN INJ 400 MG in PREMIX 1 EACH IV SCH (10:31)
[2019-11-07] MEDS ORDERED: VANCOMYCIN INJ 750 MG in SODIUM CHLORIDE 0.9% 250 ML IV PRN (15:28)
[2019-11-07] MEDS ORDERED: VANCOMYCIN INJ 750 MG in SODIUM CHLORIDE 0.9% 250 ML IV ONE (17:00)
[2019-11-07] MEDS: INSULIN GLARGINE 100 UNIT/ML SUBCUT SCH (20:16)
[2019-11-07] MEDS: GABAPENTIN 50 MG/ML 30 ML/BOTTLE PO SCH (20:17)
[2019-11-08] MEDS: INSULIN LISPRO 100 UNIT/ML SUBCUT SCH ×6 (00:53→20:17)
[2019-11-08 04:27] LABS: Basophils % 0.1 % (0.0-0.8); Eosinophils # 0.2 10*3/uL (0.0-0.87); Eosinophils % 1.9 % (0.00-10.9); Hematocrit 25.8 VOL% (35.7-47.0); Hemoglobin 8.5 GM/DL (12.0-16.0); Immature Granulocytes % 0.9 %; Immature Granulocytes Absolute 0.12 #; Lymphocytes # 0.7 10*3/uL (1.4-4.0); Lymphocytes % 5.4 % (21.3-54.2); Mean Corpuscular HGB Conc 32.9 GM/DL (32-36); Mean Corpuscular Volume 94.2 FL (87-102); Mean Platelet Volume 11.6 FL (9.6-12.0); Monocytes % 4.8 % (1.7-12.7); Neutrophils % 86.9 % (38.7-73.9); Platelet Count 94 T/CUMM (130-400); Red Blood Count 2.74 MC/CUMM (3.8-5.5); Red Cell Distribution Width 17.2 % (9.3-17.3); White Blood Count 12.7 T/CUMM (4-12)
[2019-11-08 04:36] LABS: Calcium 8.1 MG/DL (8.5-10.1); Osmolality,Calculated 291.4 MOS/KG (273-304)
[2019-11-08 05:02] LABS: ABG Base Excess -1.2 MMOL/L (-2.5-2.5); ABG HCO3 22.8 MMOL/L (20-26); ABG Oxygen Saturation 81.4 % (95-100); ABG PH 7.431 (7.35-7.45); ABG PO2 45.1 MM HG (80-95); ABG TCO2 23.8 MMOL/L (23-27); Allen Test Positive; Pt O2 Delivery Device Ventilator
[2019-11-08 05:07] LABS: Band Neutrophils 1 % (0-10); Hypochromasia 1+; Lymphocytes 2 % (20-55); Platelet Estimate Decreased; Segmented Neutrophils 91 % (50-85); Total Cells Counted 100
[2019-11-08] MEDS: methylPREDNISolone SOD SUC 40 MG/1 ML VIAL IV SCH ×2 (05:30→17:42)
[2019-11-08] MEDS: ARFORMOTEROL 15 MCG/2 ML NEB RESP TX SCH ×2 (07:50→19:34)
[2019-11-08] MEDS: ASCORBIC ACID 500 MG TABLET PO SCH ×3 (08:15→20:17)
[2019-11-08] MEDS: carvediloL 25 MG TABLET PO SCH ×2 (08:16→20:17)
[2019-11-08] MEDS: PANTOPRAZOLE 40 MG VIAL IV SCH ×2 (08:16→20:16)
[2019-11-08] MEDS: ASPIRIN CHEW 81 MG TABLET PO SCH (08:16)
[2019-11-08] MEDS: ZINC GLUCONATE 50 MG TABLET PO SCH (08:16)
[2019-11-08] MEDS: COLLAGENASE OINT 30 GM TUBE TOP SCH (08:16)
[2019-11-08] MEDS: AMIODARONE 200 MG TABLET PO SCH (08:16)
[2019-11-08] MEDS: amLODIPine 5 MG TABLET PO SCH (08:16)
[2019-11-08] MEDS: CIPROFLOXACIN INJ 400 MG in PREMIX 1 EACH IV SCH (10:47)
[2019-11-08] MEDS: INSULIN GLARGINE 100 UNIT/ML SUBCUT SCH (20:16)
[2019-11-08] MEDS: GABAPENTIN 50 MG/ML 30 ML/BOTTLE PO SCH (20:18)
[2019-11-08] MEDS: SODIUM CHLORIDE 0.9% 1,000 ML IV SCH (22:45)
[2019-11-09] MEDS: INSULIN LISPRO 100 UNIT/ML SUBCUT SCH ×6 (00:09→20:02)
[2019-11-09 04:40] LABS: Basophils % 0.1 % (0.0-0.8); Eosinophils # 0.3 10*3/uL (0.0-0.87); Eosinophils % 2.6 % (0.00-10.9); Hematocrit 24.6 VOL% (35.7-47.0); Hemoglobin 8.4 GM/DL (12.0-16.0); Immature Granulocytes % 0.6 %; Immature Granulocytes Absolute 0.08 #; Lymphocytes # 0.9 10*3/uL (1.4-4.0); Lymphocytes % 6.6 % (21.3-54.2); Mean Corpuscular HGB Conc 34.1 GM/DL (32-36); Mean Corpuscular Volume 92.1 FL (87-102); Mean Platelet Volume 12.1 FL (9.6-12.0); Neutrophils % 85.1 % (38.7-73.9); Red Blood Count 2.67 MC/CUMM (3.8-5.5); Red Cell Distribution Width 17.2 % (9.3-17.3); White Blood Count 12.9 T/CUMM (4-12)
[2019-11-09 04:53] LABS: Osmolality,Calculated 299.5 MOS/KG (273-304); Platelet Count 98 T/CUMM (130-400)
[2019-11-09 05:38] LABS: ABG Base Excess -1.9 MMOL/L (-2.5-2.5); ABG HCO3 22.8 MMOL/L (20-26); ABG Oxygen Saturation 98.8 % (95-100); ABG PCO2 35.5 MM HG (35-48); ABG PH 7.405 (7.35-7.45); ABG TCO2 19.7 MMOL/L (23-27); Allen Test Positive; Pt O2 Delivery Device Ventilator
[2019-11-09 05:48] LABS: Hypochromasia 1+; Platelet Estimate Decreased
[2019-11-09] MEDS: methylPREDNISolone SOD SUC 40 MG/1 ML VIAL IV SCH ×2 (05:53→18:05)
[2019-11-09] MEDS: ASPIRIN CHEW 81 MG TABLET PO SCH (08:22)
[2019-11-09] MEDS: AMIODARONE 200 MG TABLET PO SCH (08:22)
[2019-11-09] MEDS: ZINC GLUCONATE 50 MG TABLET PO SCH (08:22)
[2019-11-09] MEDS: amLODIPine 10 MG TABLET PO SCH (08:22)
[2019-11-09] MEDS: carvediloL 25 MG TABLET PO SCH ×2 (08:22→20:03)
[2019-11-09] MEDS: ASCORBIC ACID 500 MG TABLET PO SCH ×3 (08:22→20:03)
[2019-11-09] MEDS: PANTOPRAZOLE 40 MG VIAL IV SCH ×2 (08:23→20:01)
[2019-11-09] MEDS: MENTHOL/ZINC OXIDE OINT 71 GM JAR TOP SCH ×2 (08:23→20:02)
[2019-11-09] MEDS: ARFORMOTEROL 15 MCG/2 ML NEB RESP TX SCH ×2 (08:45→19:14)
[2019-11-09] MEDS: COLLAGENASE OINT 30 GM TUBE TOP SCH (09:00)
[2019-11-09] MEDS: CIPROFLOXACIN INJ 400 MG in PREMIX 1 EACH IV SCH (10:44)
[2019-11-09 15:14] LABS: INR 1.2; PT Patient Result 12.9 SECS (9.8-11.9)
[2019-11-09] MEDS: INSULIN GLARGINE 100 UNIT/ML SUBCUT SCH (20:01)
[2019-11-09] MEDS: GABAPENTIN 50 MG/ML 30 ML/BOTTLE PO SCH (20:02)
[2019-11-10] MEDS: SODIUM CHLORIDE 0.9% 1,000 ML IV SCH (00:53)
[2019-11-10] MEDS: INSULIN LISPRO 100 UNIT/ML SUBCUT SCH ×6 (00:54→20:05)
[2019-11-10 04:03] LABS: ABG Base Excess -2.9 MMOL/L (-2.5-2.5); ABG HCO3 20.6 MMOL/L (20-26); ABG Oxygen Saturation 96.5 % (95-100); ABG PCO2 31.1 MM HG (35-48); ABG PH 7.439 (7.35-7.45); ABG PO2 86.9 MM HG (80-95); ABG TCO2 21.6 MMOL/L (23-27); Allen Test Positive; Pt O2 Delivery Device Ventilator
[2019-11-10 04:28] LABS: Basophils % 0.2 % (0.0-0.8); Eosinophils # 0.3 10*3/uL (0.0-0.87); Eosinophils % 2.1 % (0.00-10.9); Hematocrit 24.8 VOL% (35.7-47.0); Hemoglobin 8.1 GM/DL (12.0-16.0); Immature Granulocytes % 0.7 %; Immature Granulocytes Absolute 0.09 #; Lymphocytes # 0.7 10*3/uL (1.4-4.0); Lymphocytes % 5.9 % (21.3-54.2); Mean Corpuscular HGB Conc 32.7 GM/DL (32-36); Mean Corpuscular Volume 90.8 FL (87-102); Mean Platelet Volume 11.9 FL (9.6-12.0); Monocytes % 5.2 % (1.7-12.7); Neutrophils % 85.9 % (38.7-73.9); Platelet Count 127 T/CUMM (130-400); Red Blood Count 2.73 MC/CUMM (3.8-5.5); Red Cell Distribution Width 17.4 % (9.3-17.3); White Blood Count 12.2 T/CUMM (4-12)
[2019-11-10 04:56] LABS: Calcium 8.1 MG/DL (8.5-10.1); Osmolality,Calculated 300.8 MOS/KG (273-304)
[2019-11-10 05:09] LABS: INR 1.2
[2019-11-10] MEDS: methylPREDNISolone SOD SUC 40 MG/1 ML VIAL IV SCH ×2 (06:30→17:47)
[2019-11-10] MEDS ORDERED: SODIUM CHLORIDE 0.9% 1,000 ML IV SCH (08:00)
[2019-11-10] MEDS: COLLAGENASE OINT 30 GM TUBE TOP SCH (08:04)
[2019-11-10] MEDS: PANTOPRAZOLE 40 MG VIAL IV SCH ×2 (08:04→21:09)
[2019-11-10] MEDS: MENTHOL/ZINC OXIDE OINT 71 GM JAR TOP SCH ×2 (08:04→21:08)
[2019-11-10] MEDS ORDERED: LIDOCAINE 2% 5 ML VIAL ONE (09:00)
[2019-11-10] MEDS ORDERED: ETOMIDATE 20 MG/10 ML VIAL IV ONE (09:00)
[2019-11-10] MEDS ORDERED: propofoL 200 MG/20 ML VIAL IV ONE (09:00)
[2019-11-10] MEDS: ARFORMOTEROL 15 MCG/2 ML NEB RESP TX SCH ×2 (09:15→19:39)
[2019-11-10] MEDS: CIPROFLOXACIN INJ 400 MG in PREMIX 1 EACH IV SCH (11:14)
[2019-11-10] MEDS: ZINC GLUCONATE 50 MG TABLET PO SCH (12:11)
[2019-11-10] MEDS: AMIODARONE 200 MG TABLET PO SCH (12:11)
[2019-11-10] MEDS: ASPIRIN CHEW 81 MG TABLET PO SCH (12:11)
[2019-11-10] MEDS: amLODIPine 10 MG TABLET PO SCH (12:11)
[2019-11-10] MEDS: ASCORBIC ACID 500 MG TABLET PO SCH ×3 (12:11→21:08)
[2019-11-10] MEDS: carvediloL 25 MG TABLET PO SCH ×2 (12:12→21:08)
[2019-11-10] MEDS ORDERED: LORazepam 2 MG/1 ML VIAL ONE (13:02)
[2019-11-10] MEDS ORDERED: LORazepam 2 MG/1 ML VIAL IV PRN (13:02)
[2019-11-10] MEDS ORDERED: VANCOMYCIN INJ 750 MG in SODIUM CHLORIDE 0.9% 250 ML IV ONE (17:00)
[2019-11-10] MEDS: INSULIN GLARGINE 100 UNIT/ML SUBCUT SCH (21:08)
[2019-11-10] MEDS: GABAPENTIN 50 MG/ML 30 ML/BOTTLE PO SCH (21:11)
[2019-11-11] MEDS: INSULIN LISPRO 100 UNIT/ML SUBCUT SCH ×6 (01:07→20:33)
[2019-11-11 03:03] LABS: ABG Base Excess -1.3 MMOL/L (-2.5-2.5); ABG HCO3 21.6 MMOL/L (20-26); ABG Oxygen Saturation 96.6 % (95-100); ABG PCO2 29.2 MM HG (35-48); ABG PH 7.486 (7.35-7.45); ABG PO2 88.3 MM HG (80-95); ABG TCO2 22.5 MMOL/L (23-27); Allen Test Positive; Pt O2 Delivery Device Ventilator
[2019-11-11 04:49] LABS: Calcium 7.9 MG/DL (8.5-10.1); Osmolality,Calculated 285.7 MOS/KG (273-304)
[2019-11-11] MEDS: methylPREDNISolone SOD SUC 40 MG/1 ML VIAL IV SCH ×2 (06:20→18:07)
[2019-11-11] MEDS: SODIUM CHLORIDE 0.9% 1,000 ML IV SCH ×2 (06:23→20:34)
[2019-11-11] MEDS: ARFORMOTEROL 15 MCG/2 ML NEB RESP TX SCH ×2 (07:28→19:33)
[2019-11-11] MEDS: carvediloL 25 MG TABLET PO SCH ×2 (08:05→20:33)
[2019-11-11] MEDS: PANTOPRAZOLE 40 MG VIAL IV SCH ×2 (08:05→20:34)
[2019-11-11] MEDS: ZINC GLUCONATE 50 MG TABLET PO SCH (08:05)
[2019-11-11] MEDS: ASPIRIN CHEW 81 MG TABLET PO SCH (08:05)
[2019-11-11] MEDS: amLODIPine 10 MG TABLET PO SCH (08:06)
[2019-11-11] MEDS: ASCORBIC ACID 500 MG TABLET PO SCH ×3 (08:06→21:10)
[2019-11-11] MEDS: AMIODARONE 200 MG TABLET PO SCH (08:06)
[2019-11-11] MEDS: COLLAGENASE OINT 30 GM TUBE TOP SCH (09:23)
[2019-11-11] MEDS: MENTHOL/ZINC OXIDE OINT 71 GM JAR TOP SCH ×2 (09:23→20:33)
[2019-11-11] MEDS: CIPROFLOXACIN INJ 400 MG in PREMIX 1 EACH IV SCH (13:00)
[2019-11-11] MEDS: INSULIN GLARGINE 100 UNIT/ML SUBCUT SCH (20:34)
[2019-11-11] MEDS: GABAPENTIN 50 MG/ML 30 ML/BOTTLE PO SCH (20:34)
[2019-11-12] MEDS: INSULIN LISPRO 100 UNIT/ML SUBCUT SCH ×6 (01:37→20:06)
[2019-11-12 02:18] LABS: Bacteria,Urine Occasional /HPF (Few); Bilirubin,Urine Negative (Negative); Blood, Urine Small mg/dL (Negative); Glucose,Urine (UA) Negative (Negative); Ketones,Urine Negative (Negative); Nitrite,Urine Negative (Negative); Protein,Urine Negative; RBC,Urine 2 /HPF (0-4); Urine Appearance Slightly Hazy (Clear); Urine Color Yellow (Yellow); Urine Specific Gravity 1.009 (1.001-1.035); Urine Urobilinogen < 2.0 EU/DL (0.2-1.0); WBC,Urine 1 /HPF (0-6)
[2019-11-12 04:41] LABS: Eosinophils % 10.7 % (0.00-10.9); Hematocrit 26.9 VOL% (35.7-47.0); Hemoglobin 8.5 GM/DL (12.0-16.0); Immature Granulocytes % 0.5 %; Immature Granulocytes Absolute 0.04 #; Lymphocytes # 0.8 10*3/uL (1.4-4.0); Lymphocytes % 8.5 % (21.3-54.2); Mean Corpuscular HGB Conc 31.6 GM/DL (32-36); Mean Corpuscular Volume 92.8 FL (87-102); Mean Platelet Volume 11.8 FL (9.6-12.0); Monocytes % 10.2 % (1.7-12.7); Neutrophils % 70.1 % (38.7-73.9); Platelet Count 197 T/CUMM (130-400); Red Cell Distribution Width 17.7 % (9.3-17.3); White Blood Count 8.9 T/CUMM (4-12)
[2019-11-12 04:58] LABS: Calcium 7.9 MG/DL (8.5-10.1); Osmolality,Calculated 291.8 MOS/KG (273-304)
[2019-11-12 05:21] LABS: ABG Base Excess -3.8 MMOL/L (-2.5-2.5); ABG HCO3 19.6 MMOL/L (20-26); ABG Oxygen Saturation 94.8 % (95-100); ABG PCO2 29.9 MM HG (35-48); ABG PH 7.435 (7.35-7.45); ABG PO2 74.8 MM HG (80-95); ABG TCO2 20.5 MMOL/L (23-27); Allen Test Positive; Pt O2 Delivery Device Ventilator
[2019-11-12] MEDS: methylPREDNISolone SOD SUC 40 MG/1 ML VIAL IV SCH ×2 (06:18→17:04)
[2019-11-12 07:05] LABS: Eosinophils 6 % (0-10); Lymphocytes 14 % (20-55); Segmented Neutrophils 68 % (50-85); Total Cells Counted 100
[2019-11-12 07:06] LABS: Hypochromasia 1+; Microcytosis 1+; Ovalocytes Few; Tear Drop Cells Slight
[2019-11-12 07:08] LABS: Platelet Estimate Adequate
[2019-11-12] MEDS: ARFORMOTEROL 15 MCG/2 ML NEB RESP TX SCH ×2 (07:41→19:10)
[2019-11-12] MEDS: carvediloL 25 MG TABLET PO SCH ×2 (08:11→20:12)
[2019-11-12] MEDS: ASCORBIC ACID 500 MG TABLET PO SCH ×3 (08:11→20:12)
[2019-11-12] MEDS: ZINC GLUCONATE 50 MG TABLET PO SCH (08:11)
[2019-11-12] MEDS: PANTOPRAZOLE 40 MG VIAL IV SCH ×2 (08:11→20:11)
[2019-11-12] MEDS: amLODIPine 10 MG TABLET PO SCH (08:12)
[2019-11-12] MEDS: ASPIRIN CHEW 81 MG TABLET PO SCH (08:12)
[2019-11-12] MEDS: AMIODARONE 200 MG TABLET PO SCH (08:14)
[2019-11-12] MEDS: COLLAGENASE OINT 30 GM TUBE TOP SCH (08:15)
[2019-11-12] MEDS: MENTHOL/ZINC OXIDE OINT 71 GM JAR TOP SCH ×2 (08:15→21:13)
[2019-11-12] MEDS ORDERED: VANCOMYCIN INJ 750 MG in SODIUM CHLORIDE 0.9% 250 ML IV ONE (17:00)
[2019-11-12] MEDS: SODIUM CHLORIDE 1 GM TABLET PER TUBE SCH (20:11)
[2019-11-12] MEDS: ENOXAPARIN 30 MG/0.3 ML SYRINGE SUBCUT SCH (20:12)
[2019-11-12] MEDS: INSULIN GLARGINE 100 UNIT/ML SUBCUT SCH (20:13)
[2019-11-12] MEDS: GABAPENTIN 50 MG/ML 30 ML/BOTTLE PO SCH (21:13)
[2019-11-12] MEDS: SODIUM CHLORIDE 0.9% 1,000 ML IV SCH (21:13)
[2019-11-13] MEDS: INSULIN LISPRO 100 UNIT/ML SUBCUT SCH ×6 (00:51→21:31)
[2019-11-13 04:47] LABS: ABG Base Excess -0.5 MMOL/L (-2.5-2.5); ABG HCO3 22.6 MMOL/L (20-26); ABG Oxygen Saturation 94.8 % (95-100); ABG PCO2 31.2 MM HG (35-48); ABG PH 7.478 (7.35-7.45); ABG PO2 72.9 MM HG (80-95); ABG TCO2 23.6 MMOL/L (23-27); Allen Test Positive; Pt O2 Delivery Device Ventilator
[2019-11-13 05:25] LABS: Eosinophils # 0.1 10*3/uL (0.0-0.87); Eosinophils % 0.8 % (0.00-10.9); Hematocrit 24.8 VOL% (35.7-47.0); Hemoglobin 8.3 GM/DL (12.0-16.0); Immature Granulocytes % 0.6 %; Immature Granulocytes Absolute 0.04 #; Lymphocytes # 0.7 10*3/uL (1.4-4.0); Lymphocytes % 10.1 % (21.3-54.2); Mean Corpuscular HGB Conc 33.5 GM/DL (32-36); Mean Corpuscular Volume 92.9 FL (87-102); Mean Platelet Volume 12.1 FL (9.6-12.0); Monocytes % 12.4 % (1.7-12.7); Neutrophils % 76.1 % (38.7-73.9); Platelet Count 237 T/CUMM (130-400); Red Blood Count 2.67 MC/CUMM (3.8-5.5); Red Cell Distribution Width 17.9 % (9.3-17.3); White Blood Count 7.2 T/CUMM (4-12)
[2019-11-13 05:45] LABS: Calcium 8.1 MG/DL (8.5-10.1); Osmolality,Calculated 287.2 MOS/KG (273-304)
[2019-11-13] MEDS: methylPREDNISolone SOD SUC 40 MG/1 ML VIAL IV SCH ×2 (06:54→18:05)
[2019-11-13] MEDS: ZINC GLUCONATE 50 MG TABLET PO SCH (08:16)
[2019-11-13] MEDS: amLODIPine 10 MG TABLET PO SCH (08:16)
[2019-11-13] MEDS: carvediloL 25 MG TABLET PO SCH ×2 (08:16→20:33)
[2019-11-13] MEDS: AMIODARONE 200 MG TABLET PO SCH (08:16)
[2019-11-13] MEDS: ASCORBIC ACID 500 MG TABLET PO SCH ×3 (08:16→20:32)
[2019-11-13] MEDS: ASPIRIN CHEW 81 MG TABLET PO SCH (08:16)
[2019-11-13] MEDS: SODIUM CHLORIDE 1 GM TABLET PER TUBE SCH ×2 (08:16→20:33)
[2019-11-13] MEDS: COLLAGENASE OINT 30 GM TUBE TOP SCH (08:17)
[2019-11-13] MEDS: MENTHOL/ZINC OXIDE OINT 71 GM JAR TOP SCH ×2 (08:17→20:33)
[2019-11-13] MEDS: PANTOPRAZOLE 40 MG VIAL IV SCH ×2 (08:20→20:32)
[2019-11-13] MEDS: ARFORMOTEROL 15 MCG/2 ML NEB RESP TX SCH ×2 (08:38→19:58)
[2019-11-13] MEDS: ENOXAPARIN 30 MG/0.3 ML SYRINGE SUBCUT SCH (20:32)
[2019-11-13] MEDS: GABAPENTIN 50 MG/ML 30 ML/BOTTLE PO SCH (20:33)
[2019-11-13] MEDS: INSULIN GLARGINE 100 UNIT/ML SUBCUT SCH (20:33)
[2019-11-13] MEDS: SODIUM CHLORIDE 0.9% 1,000 ML IV SCH (20:33)
[2019-11-14] MEDS: INSULIN LISPRO 100 UNIT/ML SUBCUT SCH ×6 (02:14→20:52)
[2019-11-14 03:55] LABS: ABG Base Excess -2.3 MMOL/L (-2.5-2.5); ABG HCO3 21.2 MMOL/L (20-26); ABG Oxygen Saturation 96.3 % (95-100); ABG PCO2 31.5 MM HG (35-48); ABG PH 7.446 (7.35-7.45); ABG TCO2 22.2 MMOL/L (23-27); Allen Test Positive; Pt O2 Delivery Device Ventilator
[2019-11-14 05:03] LABS: Basophils % 0.2 % (0.0-0.8); Eosinophils % 0.2 % (0.00-10.9); Hematocrit 24.2 VOL% (35.7-47.0); Hemoglobin 7.9 GM/DL (12.0-16.0); Immature Granulocytes % 0.6 %; Immature Granulocytes Absolute 0.04 #; Lymphocytes # 0.7 10*3/uL (1.4-4.0); Lymphocytes % 11.5 % (21.3-54.2); Mean Corpuscular HGB Conc 32.6 GM/DL (32-36); Mean Corpuscular Volume 92.4 FL (87-102); Mean Platelet Volume 11.7 FL (9.6-12.0); Monocytes % 10.7 % (1.7-12.7); Neutrophils % 76.8 % (38.7-73.9); Platelet Count 249 T/CUMM (130-400); Red Blood Count 2.62 MC/CUMM (3.8-5.5); Red Cell Distribution Width 18.1 % (9.3-17.3); White Blood Count 6.5 T/CUMM (4-12)
[2019-11-14 05:16] LABS: Calcium 7.9 MG/DL (8.5-10.1); Osmolality,Calculated 301.1 MOS/KG (273-304)
[2019-11-14] MEDS: methylPREDNISolone SOD SUC 40 MG/1 ML VIAL IV SCH ×2 (06:43→17:02)
[2019-11-14] MEDS: ARFORMOTEROL 15 MCG/2 ML NEB RESP TX SCH ×2 (07:50→19:21)
[2019-11-14] MEDS: ASPIRIN CHEW 81 MG TABLET PO SCH (09:01)
[2019-11-14] MEDS: AMIODARONE 200 MG TABLET PO SCH (09:01)
[2019-11-14] MEDS: carvediloL 25 MG TABLET PO SCH ×2 (09:01→20:17)
[2019-11-14] MEDS: ASCORBIC ACID 500 MG TABLET PO SCH ×3 (09:01→20:17)
[2019-11-14] MEDS: SODIUM CHLORIDE 1 GM TABLET PER TUBE SCH (09:01)
[2019-11-14] MEDS: ZINC GLUCONATE 50 MG TABLET PO SCH (09:01)
[2019-11-14] MEDS: PANTOPRAZOLE 40 MG VIAL IV SCH ×2 (09:07→20:53)
[2019-11-14] MEDS: COLLAGENASE OINT 30 GM TUBE TOP SCH (09:08)
[2019-11-14] MEDS: amLODIPine 10 MG TABLET PO SCH ×2 (09:08→12:45)
[2019-11-14] MEDS: MENTHOL/ZINC OXIDE OINT 71 GM JAR TOP SCH ×2 (09:08→20:53)
[2019-11-14] MEDS: ENOXAPARIN 40 MG/0.4 ML SYRINGE SUBCUT SCH (10:10)
[2019-11-14] MEDS: SODIUM CHLORIDE 0.9% 1,000 ML IV SCH ×2 (13:00→20:53)
[2019-11-14] MEDS ORDERED: VANCOMYCIN INJ 750 MG in SODIUM CHLORIDE 0.9% 250 ML IV ONE (17:00)
[2019-11-14] MEDS: INSULIN GLARGINE 100 UNIT/ML SUBCUT SCH (20:17)
[2019-11-14] MEDS: GABAPENTIN 50 MG/ML 30 ML/BOTTLE PO SCH (20:53)
[2019-11-15] MEDS: INSULIN LISPRO 100 UNIT/ML SUBCUT SCH ×6 (00:54→21:09)
[2019-11-15 03:37] LABS: Allen Test Positive; Pt O2 Delivery Device Ventilator
[2019-11-15 03:38] LABS: ABG HCO3 23.3 MMOL/L (20-26); ABG Oxygen Saturation 88.4 % (95-100); ABG PCO2 32.7 MM HG (35-48); ABG PH 7.471 (7.35-7.45); ABG PO2 54.4 MM HG (80-95); ABG TCO2 24.3 MMOL/L (23-27)
[2019-11-15 04:33] LABS: Eosinophils # 0.1 10*3/uL (0.0-0.87); Eosinophils % 1.4 % (0.00-10.9); Hematocrit 24.2 VOL% (35.7-47.0); Hemoglobin 7.8 GM/DL (12.0-16.0); Immature Granulocytes % 1.1 %; Immature Granulocytes Absolute 0.08 #; Lymphocytes # 0.8 10*3/uL (1.4-4.0); Lymphocytes % 11.2 % (21.3-54.2); Mean Corpuscular HGB Conc 32.2 GM/DL (32-36); Mean Corpuscular Volume 92.4 FL (87-102); Mean Platelet Volume 11.4 FL (9.6-12.0); Monocytes % 13.7 % (1.7-12.7); Neutrophils % 72.6 % (38.7-73.9); Platelet Count 281 T/CUMM (130-400); Red Blood Count 2.62 MC/CUMM (3.8-5.5); Red Cell Distribution Width 18.1 % (9.3-17.3); White Blood Count 7.3 T/CUMM (4-12)
[2019-11-15 04:46] LABS: Osmolality,Calculated 288.1 MOS/KG (273-304)
[2019-11-15] MEDS: methylPREDNISolone SOD SUC 40 MG/1 ML VIAL IV SCH ×2 (06:18→18:07)
[2019-11-15] MEDS: ARFORMOTEROL 15 MCG/2 ML NEB RESP TX SCH ×2 (07:36→19:23)
[2019-11-15] MEDS: amLODIPine 10 MG TABLET PO SCH (08:18)
[2019-11-15] MEDS: AMIODARONE 200 MG TABLET PO SCH (08:18)
[2019-11-15] MEDS: carvediloL 25 MG TABLET PO SCH ×2 (08:18→20:32)
[2019-11-15] MEDS: ASCORBIC ACID 500 MG TABLET PO SCH ×3 (08:18→20:32)
[2019-11-15] MEDS: ZINC GLUCONATE 50 MG TABLET PO SCH (08:18)
[2019-11-15] MEDS: ASPIRIN CHEW 81 MG TABLET PO SCH (08:18)
[2019-11-15] MEDS: COLLAGENASE OINT 30 GM TUBE TOP SCH (08:19)
[2019-11-15] MEDS: MENTHOL/ZINC OXIDE OINT 71 GM JAR TOP SCH ×2 (08:19→20:32)
[2019-11-15] MEDS: ENOXAPARIN 40 MG/0.4 ML SYRINGE SUBCUT SCH (08:19)
[2019-11-15] MEDS: PANTOPRAZOLE 40 MG VIAL IV SCH ×2 (08:20→20:31)
[2019-11-15] MEDS ORDERED: EPOETIN ALFA 2,000 UNIT/1 ML VIAL IV PRN (10:22)
[2019-11-15] MEDS: SODIUM CHLORIDE 0.9% 1,000 ML IV SCH ×2 (18:08→20:32)
[2019-11-15] MEDS: INSULIN GLARGINE 100 UNIT/ML SUBCUT SCH (20:31)
[2019-11-15] MEDS: GABAPENTIN 50 MG/ML 30 ML/BOTTLE PO SCH (20:32)
[2019-11-16] MEDS: INSULIN LISPRO 100 UNIT/ML SUBCUT SCH ×6 (00:28→20:38)
[2019-11-16 03:40] LABS: ABG Base Excess -0.4 MMOL/L (-2.5-2.5); ABG Oxygen Saturation 94.5 % (95-100); ABG PCO2 32.3 MM HG (35-48); ABG PO2 69.9 MM HG (80-95); ABG TCO2 21.4 MMOL/L (23-27); Allen Test Positive; Pt O2 Delivery Device Ventilator
[2019-11-16 05:02] LABS: Eosinophils % 0.5 % (0.00-10.9); Hematocrit 23.7 VOL% (35.7-47.0); Hemoglobin 7.6 GM/DL (12.0-16.0); Immature Granulocytes % 2.1 %; Immature Granulocytes Absolute 0.16 #; Lymphocytes # 0.9 10*3/uL (1.4-4.0); Mean Corpuscular HGB Conc 32.1 GM/DL (32-36); Mean Corpuscular Volume 94.8 FL (87-102); Mean Platelet Volume 11.2 FL (9.6-12.0); Monocytes % 10.1 % (1.7-12.7); Neutrophils % 75.3 % (38.7-73.9); Platelet Count 314 T/CUMM (130-400); Red Cell Distribution Width 17.7 % (9.3-17.3); White Blood Count 7.7 T/CUMM (4-12)
[2019-11-16 05:18] LABS: Calcium 7.9 MG/DL (8.5-10.1); Osmolality,Calculated 297.1 MOS/KG (273-304)
[2019-11-16] MEDS: methylPREDNISolone SOD SUC 40 MG/1 ML VIAL IV SCH ×2 (06:32→18:07)
[2019-11-16] MEDS: ARFORMOTEROL 15 MCG/2 ML NEB RESP TX SCH ×2 (08:14→19:35)
[2019-11-16] MEDS: PANTOPRAZOLE 40 MG VIAL IV SCH ×2 (08:58→20:38)
[2019-11-16] MEDS: ENOXAPARIN 40 MG/0.4 ML SYRINGE SUBCUT SCH (08:58)
[2019-11-16] MEDS: AMIODARONE 200 MG TABLET PO SCH (08:59)
[2019-11-16] MEDS: ASPIRIN CHEW 81 MG TABLET PO SCH (08:59)
[2019-11-16] MEDS: carvediloL 25 MG TABLET PO SCH ×2 (08:59→20:39)
[2019-11-16] MEDS: amLODIPine 10 MG TABLET PO SCH (08:59)
[2019-11-16] MEDS: ASCORBIC ACID 500 MG TABLET PO SCH ×3 (08:59→20:39)
[2019-11-16] MEDS: ZINC GLUCONATE 50 MG TABLET PO SCH (08:59)
[2019-11-16] MEDS: MENTHOL/ZINC OXIDE OINT 71 GM JAR TOP SCH ×2 (09:00→20:39)
[2019-11-16] MEDS: COLLAGENASE OINT 30 GM TUBE TOP SCH (09:00)
[2019-11-16] MEDS: MORPHINE 4 MG/1 ML VIAL IV PRN (16:29)
[2019-11-16] MEDS: INSULIN GLARGINE 100 UNIT/ML SUBCUT SCH (20:38)
[2019-11-16] MEDS: SODIUM CHLORIDE 0.9% 1,000 ML IV SCH (20:39)
[2019-11-16] MEDS: levETIRAcetam 500 MG TABLET PO SCH (20:39)
[2019-11-16] MEDS: GABAPENTIN 50 MG/ML 30 ML/BOTTLE PO SCH (20:39)
[2019-11-17] MEDS: INSULIN LISPRO 100 UNIT/ML SUBCUT SCH ×6 (00:14→20:36)
[2019-11-17 05:10] LABS: Basophils % 0.1 % (0.0-0.8); Eosinophils % 0.3 % (0.00-10.9); Hematocrit 25.1 VOL% (35.7-47.0); Immature Granulocytes % 2.6 %; Immature Granulocytes Absolute 0.26 #; Lymphocytes % 9.6 % (21.3-54.2); Mean Corpuscular HGB Conc 31.9 GM/DL (32-36); Mean Corpuscular Volume 95.4 FL (87-102); Mean Platelet Volume 11.4 FL (9.6-12.0); Monocytes % 9.5 % (1.7-12.7); Neutrophils % 77.9 % (38.7-73.9); Platelet Count 360 T/CUMM (130-400); Red Blood Count 2.63 MC/CUMM (3.8-5.5); Red Cell Distribution Width 17.7 % (9.3-17.3); White Blood Count 9.9 T/CUMM (4-12)
[2019-11-17] MEDS: methylPREDNISolone SOD SUC 40 MG/1 ML VIAL IV SCH ×2 (06:20→16:52)
[2019-11-17] MEDS: ARFORMOTEROL 15 MCG/2 ML NEB RESP TX SCH ×2 (07:30→19:30)
[2019-11-17] MEDS: ASPIRIN CHEW 81 MG TABLET PO SCH (08:25)
[2019-11-17] MEDS: ENOXAPARIN 40 MG/0.4 ML SYRINGE SUBCUT SCH (08:25)
[2019-11-17] MEDS: levETIRAcetam 500 MG TABLET PO SCH ×2 (08:25→20:50)
[2019-11-17] MEDS: carvediloL 25 MG TABLET PO SCH ×2 (08:25→20:50)
[2019-11-17] MEDS: ZINC GLUCONATE 50 MG TABLET PO SCH (08:25)
[2019-11-17] MEDS: AMIODARONE 200 MG TABLET PO SCH (08:25)
[2019-11-17] MEDS: amLODIPine 10 MG TABLET PO SCH (08:25)
[2019-11-17] MEDS: ASCORBIC ACID 500 MG TABLET PO SCH ×3 (08:25→20:50)
[2019-11-17] MEDS: PANTOPRAZOLE 40 MG VIAL IV SCH ×2 (08:25→20:50)
[2019-11-17] MEDS: COLLAGENASE OINT 30 GM TUBE TOP SCH (08:26)
[2019-11-17] MEDS: MENTHOL/ZINC OXIDE OINT 71 GM JAR TOP SCH ×2 (08:26→20:51)
[2019-11-17] MEDS ORDERED: VANCOMYCIN INJ 750 MG in SODIUM CHLORIDE 0.9% 250 ML IV ONE (17:00)
[2019-11-17] MEDS: GABAPENTIN 50 MG/ML 30 ML/BOTTLE PO SCH (20:51)
[2019-11-17] MEDS: INSULIN GLARGINE 100 UNIT/ML SUBCUT SCH (20:51)
[2019-11-17] MEDS: SODIUM CHLORIDE 0.9% 1,000 ML IV SCH (21:14)
[2019-11-18] MEDS: INSULIN LISPRO 100 UNIT/ML SUBCUT SCH ×6 (01:04→21:01)
[2019-11-18 04:18] LABS: ABG Base Excess -0.6 MMOL/L (-2.5-2.5); ABG HCO3 23.8 MMOL/L (20-26); ABG Oxygen Saturation 88.9 % (95-100); ABG PCO2 29.2 MM HG (35-48); ABG PH 7.488 (7.35-7.45); ABG PO2 54.6 MM HG (80-95); ABG TCO2 20.6 MMOL/L (23-27); Allen Test Positive; Pt O2 Delivery Device Ventilator
[2019-11-18 05:29] LABS: Basophils % 0.1 % (0.0-0.8); Eosinophils # 0.1 10*3/uL (0.0-0.87); Eosinophils % 0.9 % (0.00-10.9); Hemoglobin 8.2 GM/DL (12.0-16.0); Immature Granulocytes % 2.4 %; Immature Granulocytes Absolute 0.33 #; Lymphocytes # 1.1 10*3/uL (1.4-4.0); Lymphocytes % 7.6 % (21.3-54.2); Mean Corpuscular HGB Conc 32.8 GM/DL (32-36); Mean Corpuscular Volume 91.9 FL (87-102); Mean Platelet Volume 11.4 FL (9.6-12.0); Monocytes % 8.9 % (1.7-12.7); Neutrophils % 80.1 % (38.7-73.9); Platelet Count 363 T/CUMM (130-400); Red Blood Count 2.72 MC/CUMM (3.8-5.5); Red Cell Distribution Width 17.7 % (9.3-17.3)
[2019-11-18] MEDS: methylPREDNISolone SOD SUC 40 MG/1 ML VIAL IV SCH ×2 (06:17→17:49)
[2019-11-18] MEDS: ARFORMOTEROL 15 MCG/2 ML NEB RESP TX SCH ×2 (08:11→19:40)
[2019-11-18] MEDS: ENOXAPARIN 40 MG/0.4 ML SYRINGE SUBCUT SCH (08:13)
[2019-11-18] MEDS: ZINC GLUCONATE 50 MG TABLET PO SCH (08:14)
[2019-11-18] MEDS: ASPIRIN CHEW 81 MG TABLET PO SCH (08:14)
[2019-11-18] MEDS: MENTHOL/ZINC OXIDE OINT 71 GM JAR TOP SCH ×2 (08:14→20:53)
[2019-11-18] MEDS: amLODIPine 10 MG TABLET PO SCH (08:14)
[2019-11-18] MEDS: ASCORBIC ACID 500 MG TABLET PO SCH ×3 (08:14→20:52)
[2019-11-18] MEDS: carvediloL 25 MG TABLET PO SCH ×2 (08:14→20:52)
[2019-11-18] MEDS: AMIODARONE 200 MG TABLET PO SCH (08:14)
[2019-11-18] MEDS: COLLAGENASE OINT 30 GM TUBE TOP SCH (08:15)
[2019-11-18] MEDS: PANTOPRAZOLE 40 MG VIAL IV SCH ×2 (08:18→20:51)
[2019-11-18] MEDS: levETIRAcetam LIQUID 100 MG/ML 30 ML/BOTTLE PER TUBE SCH ×2 (08:19→20:53)
[2019-11-18 08:33] LABS: Calcium 8.4 MG/DL (8.5-10.1); Osmolality,Calculated 292.1 MOS/KG (273-304)
[2019-11-18] MEDS: MORPHINE 4 MG/1 ML VIAL IV PRN (08:34)
[2019-11-18] MEDS: DEXTROSE 50% 25 GM/50 ML VIAL IV PRN (08:52)
[2019-11-18] MEDS: SODIUM CHLORIDE 0.9% 1,000 ML IV SCH ×2 (15:30→21:02)
[2019-11-18] MEDS: GABAPENTIN 50 MG/ML 30 ML/BOTTLE PO SCH (20:53)
[2019-11-18] MEDS: INSULIN GLARGINE 100 UNIT/ML SUBCUT SCH (21:02)
[2019-11-19] MEDS: INSULIN LISPRO 100 UNIT/ML SUBCUT SCH ×6 (00:39→20:16)
[2019-11-19 03:42] LABS: ABG Base Excess -2.2 MMOL/L (-2.5-2.5); ABG HCO3 22.5 MMOL/L (20-26); ABG Oxygen Saturation 91.2 % (95-100); ABG PH 7.435 (7.35-7.45); ABG PO2 61.1 MM HG (80-95); Allen Test Positive; Pt O2 Delivery Device Ventilator
[2019-11-19 04:27] LABS: Basophils % 0.1 % (0.0-0.8); Eosinophils % 0.2 % (0.00-10.9); Hematocrit 25.2 VOL% (35.7-47.0); Immature Granulocytes % 2.5 %; Immature Granulocytes Absolute 0.42 #; Lymphocytes # 1.1 10*3/uL (1.4-4.0); Lymphocytes % 6.7 % (21.3-54.2); Mean Corpuscular HGB Conc 31.7 GM/DL (32-36); Mean Corpuscular Volume 95.5 FL (87-102); Mean Platelet Volume 11.1 FL (9.6-12.0); Monocytes % 9.4 % (1.7-12.7); Neutrophils % 81.1 % (38.7-73.9); Platelet Count 345 T/CUMM (130-400); Red Blood Count 2.64 MC/CUMM (3.8-5.5); Red Cell Distribution Width 17.9 % (9.3-17.3); White Blood Count 16.9 T/CUMM (4-12)
[2019-11-19 04:51] LABS: Calcium 8.8 MG/DL (8.5-10.1); Osmolality,Calculated 294.4 MOS/KG (273-304)
[2019-11-19] MEDS: hydrALAZINE 20 MG/1 ML VIAL IV PRN (04:53)
[2019-11-19] MEDS: methylPREDNISolone SOD SUC 40 MG/1 ML VIAL IV SCH ×2 (05:35→18:12)
[2019-11-19] MEDS: MORPHINE 4 MG/1 ML VIAL IV PRN ×3 (05:56→21:11)
[2019-11-19] MEDS: ARFORMOTEROL 15 MCG/2 ML NEB RESP TX SCH ×2 (07:03→20:22)
[2019-11-19] MEDS: ZINC GLUCONATE 50 MG TABLET PO SCH (08:32)
[2019-11-19] MEDS: ASCORBIC ACID 500 MG TABLET PO SCH ×3 (08:32→20:16)
[2019-11-19] MEDS: amLODIPine 10 MG TABLET PO SCH (08:32)
[2019-11-19] MEDS: AMIODARONE 200 MG TABLET PO SCH (08:32)
[2019-11-19] MEDS: levETIRAcetam LIQUID 100 MG/ML 30 ML/BOTTLE PER TUBE SCH ×2 (08:32→21:00)
[2019-11-19] MEDS: carvediloL 25 MG TABLET PO SCH ×2 (08:32→20:16)
[2019-11-19] MEDS: ENOXAPARIN 40 MG/0.4 ML SYRINGE SUBCUT SCH (08:32)
[2019-11-19] MEDS: ASPIRIN CHEW 81 MG TABLET PO SCH (08:32)
[2019-11-19] MEDS: COLLAGENASE OINT 30 GM TUBE TOP SCH (08:34)
[2019-11-19] MEDS: MENTHOL/ZINC OXIDE OINT 71 GM JAR TOP SCH ×2 (08:34→21:11)
[2019-11-19] MEDS: PANTOPRAZOLE 40 MG VIAL IV SCH ×2 (08:37→20:16)
[2019-11-19] MEDS: cloNIDine 0.1 MG TABLET PO SCH ×2 (08:37→20:17)
[2019-11-19] MEDS ORDERED: VANCOMYCIN INJ 750 MG in SODIUM CHLORIDE 0.9% 250 ML IV ONE (17:00)
[2019-11-19] MEDS: GABAPENTIN 50 MG/ML 30 ML/BOTTLE PO SCH (21:11)
[2019-11-19] MEDS: SODIUM CHLORIDE 0.9% 1,000 ML IV SCH (21:11)
[2019-11-20] MEDS: INSULIN LISPRO 100 UNIT/ML SUBCUT SCH ×6 (00:29→20:56)
[2019-11-20 03:41] LABS: ABG Base Excess -0.6 MMOL/L (-2.5-2.5); ABG HCO3 23.8 MMOL/L (20-26); ABG Oxygen Saturation 80.4 % (95-100); ABG PCO2 36.7 MM HG (35-48); ABG PH 7.419 (7.35-7.45); ABG PO2 46.9 MM HG (80-95); ABG TCO2 22.5 MMOL/L (23-27); Allen Test Positive; Pt O2 Delivery Device Ventilator
[2019-11-20 03:50] LABS: Eosinophils % 0.1 % (0.00-10.9); Hematocrit 20.4 VOL% (35.7-47.0); Hemoglobin 6.5 GM/DL (12.0-16.0); Lymphocytes # 0.6 10*3/uL (1.4-4.0); Lymphocytes % 6.4 % (21.3-54.2); Mean Corpuscular HGB Conc 31.9 GM/DL (32-36); Mean Corpuscular Volume 94.9 FL (87-102); Mean Platelet Volume 10.8 FL (9.6-12.0); Monocytes % 8.2 % (1.7-12.7); Neutrophils % 84.3 % (38.7-73.9); Platelet Count 207 T/CUMM (130-400); Red Blood Count 2.15 MC/CUMM (3.8-5.5); Red Cell Distribution Width 17.7 % (9.3-17.3); White Blood Count 9.5 T/CUMM (4-12)
[2019-11-20 04:34] LABS: Calcium 8.4 MG/DL (8.5-10.1); Osmolality,Calculated 293.1 MOS/KG (273-304)
[2019-11-20 04:58] LABS: ABG Base Excess -0.6 MMOL/L (-2.5-2.5); ABG HCO3 23.9 MMOL/L (20-26); ABG Oxygen Saturation 94.4 % (95-100); ABG PCO2 31.6 MM HG (35-48); ABG PH 7.466 (7.35-7.45); ABG PO2 67.9 MM HG (80-95); ABG TCO2 21.6 MMOL/L (23-27); Allen Test Positive; Pt O2 Delivery Device Ventilator
[2019-11-20] MEDS: methylPREDNISolone SOD SUC 40 MG/1 ML VIAL IV SCH ×2 (06:22→18:25)
[2019-11-20] MEDS ORDERED: SODIUM CHLORIDE 0.9% 1,000 ML IV PRN (07:35)
[2019-11-20] MEDS: ARFORMOTEROL 15 MCG/2 ML NEB RESP TX SCH ×2 (07:37→19:27)
[2019-11-20] MEDS: ENOXAPARIN 30 MG/0.3 ML SYRINGE SUBCUT SCH (07:55)
[2019-11-20] MEDS: AMIODARONE 200 MG TABLET PO SCH (08:00)
[2019-11-20] MEDS: cloNIDine 0.1 MG TABLET PO SCH ×2 (08:00→20:02)
[2019-11-20] MEDS: ZINC GLUCONATE 50 MG TABLET PO SCH (08:00)
[2019-11-20] MEDS: carvediloL 25 MG TABLET PO SCH ×2 (08:00→20:02)
[2019-11-20] MEDS: COLLAGENASE OINT 30 GM TUBE TOP SCH (08:00)
[2019-11-20] MEDS: levETIRAcetam LIQUID 100 MG/ML 30 ML/BOTTLE PER TUBE SCH ×2 (08:00→20:04)
[2019-11-20] MEDS: ASCORBIC ACID 500 MG TABLET PO SCH ×3 (08:00→20:02)
[2019-11-20] MEDS: PANTOPRAZOLE 40 MG VIAL IV SCH ×2 (08:00→20:00)
[2019-11-20] MEDS: ASPIRIN CHEW 81 MG TABLET PO SCH (08:00)
[2019-11-20] MEDS: MENTHOL/ZINC OXIDE OINT 71 GM JAR TOP SCH ×2 (08:00→21:20)
[2019-11-20] MEDS: amLODIPine 10 MG TABLET PO SCH (08:00)
[2019-11-20] MEDS: MORPHINE 4 MG/1 ML VIAL IV PRN ×3 (13:27→23:07)
[2019-11-20] MEDS: hydrALAZINE 20 MG/1 ML VIAL IV PRN ×2 (14:42→22:04)
[2019-11-20 16:50] LABS: Hematocrit 27.6 VOL% (35.7-47.0)
[2019-11-20 16:55] LABS: Hemoglobin 8.8 GM/DL (12.0-16.0)
[2019-11-20] MEDS: GABAPENTIN 50 MG/ML 30 ML/BOTTLE PO SCH (21:20)
[2019-11-21] MEDS: INSULIN LISPRO 100 UNIT/ML SUBCUT SCH ×7 (00:21→23:19)
[2019-11-21 03:51] LABS: Basophils % 0.1 % (0.0-0.8); Eosinophils % 0.1 % (0.00-10.9); Hematocrit 26.8 VOL% (35.7-47.0); Hemoglobin 8.5 GM/DL (12.0-16.0); Immature Granulocytes % 1.4 %; Immature Granulocytes Absolute 0.22 #; Lymphocytes # 0.7 10*3/uL (1.4-4.0); Lymphocytes % 4.3 % (21.3-54.2); Mean Corpuscular HGB Conc 31.7 GM/DL (32-36); Monocytes % 5.3 % (1.7-12.7); Neutrophils % 88.8 % (38.7-73.9); Platelet Count 245 T/CUMM (130-400); Red Blood Count 2.85 MC/CUMM (3.8-5.5); Red Cell Distribution Width 17.8 % (9.3-17.3); White Blood Count 15.8 T/CUMM (4-12)
[2019-11-21 04:07] LABS: Calcium 8.7 MG/DL (8.5-10.1); Osmolality,Calculated 297.4 MOS/KG (273-304)
[2019-11-21 04:31] LABS: ABG Base Excess -3.6 MMOL/L (-2.5-2.5); ABG HCO3 21.3 MMOL/L (20-26); ABG Oxygen Saturation 89.1 % (95-100); ABG PCO2 42.1 MM HG (35-48); ABG PO2 61.1 MM HG (80-95); ABG TCO2 20.4 MMOL/L (23-27); Allen Test Positive; Pt O2 Delivery Device Ventilator
[2019-11-21 05:10] LABS: Lymphocytes 10 % (20-55); Segmented Neutrophils 82 % (50-85); Total Cells Counted 100
[2019-11-21 05:14] LABS: Anisocytosis 1+; Microcytosis Slight
[2019-11-21 05:15] LABS: Ovalocytes Slight; Polychromasia Slight; Smudge Cells Few; Tear Drop Cells Few
[2019-11-21 05:16] LABS: Platelet Estimate Normal
[2019-11-21] MEDS: methylPREDNISolone SOD SUC 40 MG/1 ML VIAL IV SCH ×3 (05:31→23:18)
[2019-11-21] MEDS: ARFORMOTEROL 15 MCG/2 ML NEB RESP TX SCH ×2 (07:11→18:55)
[2019-11-21] MEDS: ENOXAPARIN 30 MG/0.3 ML SYRINGE SUBCUT SCH (08:05)
[2019-11-21] MEDS: PANTOPRAZOLE 40 MG VIAL IV SCH ×2 (08:06→20:26)
[2019-11-21] MEDS: ASPIRIN CHEW 81 MG TABLET PO SCH (08:06)
[2019-11-21] MEDS: ZINC GLUCONATE 50 MG TABLET PO SCH (08:06)
[2019-11-21] MEDS: carvediloL 25 MG TABLET PO SCH ×2 (08:06→20:26)
[2019-11-21] MEDS: amLODIPine 10 MG TABLET PO SCH (08:06)
[2019-11-21] MEDS: AMIODARONE 200 MG TABLET PO SCH (08:06)
[2019-11-21] MEDS: cloNIDine 0.1 MG TABLET PO SCH ×2 (08:06→20:26)
[2019-11-21] MEDS: MENTHOL/ZINC OXIDE OINT 71 GM JAR TOP SCH ×2 (08:06→20:27)
[2019-11-21] MEDS: ASCORBIC ACID 500 MG TABLET PO SCH ×3 (08:06→20:26)
[2019-11-21] MEDS: levETIRAcetam LIQUID 100 MG/ML 30 ML/BOTTLE PER TUBE SCH ×2 (08:07→20:26)
[2019-11-21] MEDS: COLLAGENASE OINT 30 GM TUBE TOP SCH (08:32)
[2019-11-21] MEDS: SODIUM CHLORIDE 0.9% 1,000 ML IV SCH ×2 (08:48→23:37)
[2019-11-21] MEDS: MORPHINE 4 MG/1 ML VIAL IV PRN ×2 (16:53→20:24)
[2019-11-21] MEDS ORDERED: VANCOMYCIN INJ 750 MG in SODIUM CHLORIDE 0.9% 250 ML IV ONE (17:00)
[2019-11-21] MEDS: GABAPENTIN 50 MG/ML 30 ML/BOTTLE PO SCH (20:27)
[2019-11-22] MEDS: INSULIN LISPRO 100 UNIT/ML SUBCUT SCH ×6 (04:52→23:38)
[2019-11-22 04:57] LABS: ABG Base Excess -2.1 MMOL/L (-2.5-2.5); ABG HCO3 23.5 MMOL/L (20-26); ABG Oxygen Saturation 98.8 % (95-100); ABG PH 7.345 (7.35-7.45); ABG PO2 176.6 MM HG (80-95); ABG TCO2 24.8 MMOL/L (23-27); Allen Test Positive; Pt O2 Delivery Device Ventilator
[2019-11-22 05:26] LABS: Basophils % 0.1 % (0.0-0.8); Hematocrit 24.4 VOL% (35.7-47.0); Hemoglobin 7.8 GM/DL (12.0-16.0); Immature Granulocytes % 1.2 %; Immature Granulocytes Absolute 0.13 #; Lymphocytes # 0.5 10*3/uL (1.4-4.0); Lymphocytes % 4.5 % (21.3-54.2); Mean Corpuscular Volume 93.5 FL (87-102); Mean Platelet Volume 10.9 FL (9.6-12.0); Monocytes % 3.2 % (1.7-12.7); Platelet Count 163 T/CUMM (130-400); Red Blood Count 2.61 MC/CUMM (3.8-5.5); Red Cell Distribution Width 17.3 % (9.3-17.3)
[2019-11-22 05:59] LABS: Calcium 8.5 MG/DL (8.5-10.1); Osmolality,Calculated 295.4 MOS/KG (273-304)
[2019-11-22] MEDS: methylPREDNISolone SOD SUC 40 MG/1 ML VIAL IV SCH ×3 (06:15→23:28)
[2019-11-22 06:35] LABS: Band Neutrophils 1 % (0-10); Lymphocytes 1 % (20-55); Platelet Estimate Adequate; Polychromasia Slight; Segmented Neutrophils 97 % (50-85); Total Cells Counted 100
[2019-11-22] MEDS: ARFORMOTEROL 15 MCG/2 ML NEB RESP TX SCH ×2 (07:32→19:07)
[2019-11-22] MEDS: ENOXAPARIN 30 MG/0.3 ML SYRINGE SUBCUT SCH (08:12)
[2019-11-22] MEDS: PANTOPRAZOLE 40 MG VIAL IV SCH ×2 (08:12→20:02)
[2019-11-22] MEDS: ASPIRIN CHEW 81 MG TABLET PO SCH (08:13)
[2019-11-22] MEDS: carvediloL 25 MG TABLET PO SCH ×2 (08:13→20:04)
[2019-11-22] MEDS: AMIODARONE 200 MG TABLET PO SCH (08:13)
[2019-11-22] MEDS: ZINC GLUCONATE 50 MG TABLET PO SCH (08:13)
[2019-11-22] MEDS: cloNIDine 0.1 MG TABLET PO SCH ×2 (08:13→20:03)
[2019-11-22] MEDS: amLODIPine 10 MG TABLET PO SCH (08:13)
[2019-11-22] MEDS: levETIRAcetam LIQUID 100 MG/ML 30 ML/BOTTLE PER TUBE SCH ×2 (08:15→20:03)
[2019-11-22] MEDS: MENTHOL/ZINC OXIDE OINT 71 GM JAR TOP SCH ×2 (08:15→20:03)
[2019-11-22] MEDS: COLLAGENASE OINT 30 GM TUBE TOP SCH (08:15)
[2019-11-22] MEDS: ASCORBIC ACID 500 MG TABLET PO SCH ×3 (08:20→20:03)
[2019-11-22] MEDS: INSULIN GLARGINE 100 UNIT/ML SUBCUT SCH (20:02)
[2019-11-22] MEDS: GABAPENTIN 50 MG/ML 30 ML/BOTTLE PO SCH (20:03)
[2019-11-22] MEDS: SODIUM CHLORIDE 0.9% 1,000 ML IV SCH (23:40)
[2019-11-23 03:43] LABS: Hematocrit 24.6 VOL% (35.7-47.0); Hemoglobin 8.1 GM/DL (12.0-16.0); Immature Granulocytes % 1.1 %; Lymphocytes # 0.4 10*3/uL (1.4-4.0); Lymphocytes % 4.6 % (21.3-54.2); Mean Corpuscular HGB Conc 32.9 GM/DL (32-36); Mean Corpuscular Volume 92.5 FL (87-102); Monocytes % 5.4 % (1.7-12.7); Neutrophils % 88.9 % (38.7-73.9); Platelet Count 140 T/CUMM (130-400); Red Blood Count 2.66 MC/CUMM (3.8-5.5); Red Cell Distribution Width 16.6 % (9.3-17.3); White Blood Count 8.7 T/CUMM (4-12)
[2019-11-23 03:57] LABS: Osmolality,Calculated 295.8 MOS/KG (273-304)
[2019-11-23 04:28] LABS: Lymphocytes 4 % (20-55); Platelet Estimate Normal; Segmented Neutrophils 90 % (50-85); Total Cells Counted 100
[2019-11-23 04:29] LABS: Smudge Cells Few
[2019-11-23 04:30] LABS: Polychromasia Slight
[2019-11-23 04:31] LABS: Anisocytosis 1+; Microcytosis 1+; Spherocytes Slight
[2019-11-23 05:00] LABS: ABG Base Excess -4.8 MMOL/L (-2.5-2.5); ABG HCO3 20.5 MMOL/L (20-26); ABG Oxygen Saturation 98.6 % (95-100); ABG PCO2 52.7 MM HG (35-48); ABG PH 7.247 (7.35-7.45); ABG TCO2 21.1 MMOL/L (23-27); Allen Test Positive; Pt O2 Delivery Device Ventilator
[2019-11-23] MEDS: INSULIN LISPRO 100 UNIT/ML SUBCUT SCH ×5 (05:06→20:12)
[2019-11-23] MEDS: methylPREDNISolone SOD SUC 40 MG/1 ML VIAL IV SCH ×2 (05:06→15:00)
[2019-11-23] MEDS: ARFORMOTEROL 15 MCG/2 ML NEB RESP TX SCH ×2 (06:47→19:16)
[2019-11-23] MEDS: INSULIN GLARGINE 100 UNIT/ML SUBCUT SCH (09:44)
[2019-11-23] MEDS: ENOXAPARIN 30 MG/0.3 ML SYRINGE SUBCUT SCH (09:44)
[2019-11-23] MEDS: ASCORBIC ACID 500 MG TABLET PO SCH ×3 (09:46→20:12)
[2019-11-23] MEDS: cloNIDine 0.1 MG TABLET PO SCH ×2 (09:46→20:11)
[2019-11-23] MEDS: ZINC GLUCONATE 50 MG TABLET PO SCH (09:47)
[2019-11-23] MEDS: AMIODARONE 200 MG TABLET PO SCH (09:47)
[2019-11-23] MEDS: amLODIPine 10 MG TABLET PO SCH (09:47)
[2019-11-23] MEDS: ASPIRIN CHEW 81 MG TABLET PO SCH (09:47)
[2019-11-23] MEDS: PANTOPRAZOLE 40 MG VIAL IV SCH ×2 (09:47→20:11)
[2019-11-23] MEDS: levETIRAcetam LIQUID 100 MG/ML 30 ML/BOTTLE PER TUBE SCH ×2 (09:49→20:11)
[2019-11-23] MEDS: carvediloL 25 MG TABLET PO SCH ×2 (11:50→20:12)
[2019-11-23] MEDS: MENTHOL/ZINC OXIDE OINT 71 GM JAR TOP SCH ×2 (15:45→20:12)
[2019-11-23] MEDS: COLLAGENASE OINT 30 GM TUBE TOP SCH (15:45)
[2019-11-23] MEDS: GABAPENTIN 50 MG/ML 30 ML/BOTTLE PO SCH (21:30)
[2019-11-23] MEDS: SODIUM CHLORIDE 0.9% 1,000 ML IV SCH (22:09)
[2019-11-24] MEDS: INSULIN LISPRO 100 UNIT/ML SUBCUT SCH ×6 (00:10→20:45)
[2019-11-24] MEDS: methylPREDNISolone SOD SUC 40 MG/1 ML VIAL IV SCH ×4 (00:10→21:06)
[2019-11-24 03:18] LABS: ABG Base Excess -4.5 MMOL/L (-2.5-2.5); ABG Oxygen Saturation 89.8 % (95-100); ABG PCO2 40.7 MM HG (35-48); ABG PH 7.331 (7.35-7.45); ABG TCO2 22.3 MMOL/L (23-27)
[2019-11-24 06:19] LABS: Hematocrit 25.3 VOL% (35.7-47.0); Hemoglobin 8.1 GM/DL (12.0-16.0); Immature Granulocytes % 1.5 %; Immature Granulocytes Absolute 0.12 #; Lymphocytes # 0.3 10*3/uL (1.4-4.0); Lymphocytes % 3.6 % (21.3-54.2); Mean Corpuscular Volume 91.3 FL (87-102); Mean Platelet Volume 11.3 FL (9.6-12.0); Monocytes % 6.1 % (1.7-12.7); NRBC # 0.02 10*3/uL; Neutrophils % 88.8 % (38.7-73.9); Platelet Count 161 T/CUMM (130-400); Red Blood Count 2.77 MC/CUMM (3.8-5.5); Red Cell Distribution Width 16.2 % (9.3-17.3); White Blood Count 8.1 T/CUMM (4-12)
[2019-11-24 06:34] LABS: Calcium 8.7 MG/DL (8.5-10.1); Osmolality,Calculated 289.5 MOS/KG (273-304)
[2019-11-24 06:42] LABS: Burr Cells Few; Hypochromasia 1+; Lymphocytes 5 % (20-55); Microcytosis 1+; Segmented Neutrophils 92 % (50-85); Target Cells Slight; Tear Drop Cells Slight; Total Cells Counted 100
[2019-11-24 06:43] LABS: Anisocytosis 1+; Platelet Estimate Adequate
[2019-11-24] MEDS: ARFORMOTEROL 15 MCG/2 ML NEB RESP TX SCH ×2 (07:12→19:25)
[2019-11-24] MEDS: INSULIN GLARGINE 100 UNIT/ML SUBCUT SCH (08:27)
[2019-11-24] MEDS: ENOXAPARIN 30 MG/0.3 ML SYRINGE SUBCUT SCH (08:27)
[2019-11-24] MEDS: PANTOPRAZOLE 40 MG VIAL IV SCH ×2 (08:27→20:44)
[2019-11-24] MEDS: amLODIPine 10 MG TABLET PO SCH (08:28)
[2019-11-24] MEDS: ZINC GLUCONATE 50 MG TABLET PO SCH (08:28)
[2019-11-24] MEDS: carvediloL 25 MG TABLET PO SCH ×2 (08:28→20:44)
[2019-11-24] MEDS: AMIODARONE 200 MG TABLET PO SCH (08:28)
[2019-11-24] MEDS: cloNIDine 0.1 MG TABLET PO SCH ×2 (08:28→20:44)
[2019-11-24] MEDS: ASCORBIC ACID 500 MG TABLET PO SCH ×3 (08:28→20:44)
[2019-11-24] MEDS: ASPIRIN CHEW 81 MG TABLET PO SCH (08:28)
[2019-11-24] MEDS: levETIRAcetam LIQUID 100 MG/ML 30 ML/BOTTLE PER TUBE SCH ×2 (08:29→21:06)
[2019-11-24] MEDS: MENTHOL/ZINC OXIDE OINT 71 GM JAR TOP SCH ×2 (10:36→21:06)
[2019-11-24] MEDS: COLLAGENASE OINT 30 GM TUBE TOP SCH (10:36)
[2019-11-24] MEDS: SODIUM CHLORIDE 1 GM TABLET PO SCH ×2 (14:34→20:44)
[2019-11-24] MEDS ORDERED: VANCOMYCIN INJ 750 MG in SODIUM CHLORIDE 0.9% 250 ML IV ONE (17:00)
[2019-11-24] MEDS: GABAPENTIN 50 MG/ML 30 ML/BOTTLE PO SCH (21:06)
[2019-11-25] MEDS: INSULIN LISPRO 100 UNIT/ML SUBCUT SCH ×6 (04:42→20:49)
[2019-11-25] MEDS: SODIUM CHLORIDE 0.9% 1,000 ML IV SCH ×2 (04:42→21:26)
[2019-11-25 04:57] LABS: Basophils % 0.1 % (0.0-0.8); Hematocrit 26.4 VOL% (35.7-47.0); Hemoglobin 8.8 GM/DL (12.0-16.0); Immature Granulocytes % 2.8 %; Lymphocytes # 0.4 10*3/uL (1.4-4.0); Lymphocytes % 2.6 % (21.3-54.2); Mean Corpuscular HGB Conc 33.3 GM/DL (32-36); Mean Corpuscular Volume 92.3 FL (87-102); Mean Platelet Volume 11.1 FL (9.6-12.0); Monocytes % 5.4 % (1.7-12.7); Neutrophils % 89.1 % (38.7-73.9); Platelet Count 166 T/CUMM (130-400); Red Blood Count 2.86 MC/CUMM (3.8-5.5); Red Cell Distribution Width 16.7 % (9.3-17.3); White Blood Count 14.4 T/CUMM (4-12)
[2019-11-25 04:59] LABS: ABG Base Excess -3.2 MMOL/L (-2.5-2.5); ABG HCO3 22.4 MMOL/L (20-26); ABG Oxygen Saturation 89.4 % (95-100); ABG PCO2 42.9 MM HG (35-48); ABG PH 7.336 (7.35-7.45); ABG PO2 62.8 MM HG (80-95); ABG TCO2 23.7 MMOL/L (23-27); Allen Test Positive; Pt O2 Delivery Device Ventilator
[2019-11-25 05:07] LABS: Calcium 7.9 MG/DL (8.5-10.1); Osmolality,Calculated 288.4 MOS/KG (273-304)
[2019-11-25 05:17] LABS: Band Neutrophils 3 % (0-10); Lymphocytes 5 % (20-55); Segmented Neutrophils 83 % (50-85); Total Cells Counted 100
[2019-11-25 05:18] LABS: Hypochromasia 1+; Microcytosis 1+; Ovalocytes Slight; Platelet Estimate Adequate
[2019-11-25] MEDS: methylPREDNISolone SOD SUC 40 MG/1 ML VIAL IV SCH ×3 (05:59→21:56)
[2019-11-25] MEDS: ARFORMOTEROL 15 MCG/2 ML NEB RESP TX SCH ×2 (07:39→19:40)
[2019-11-25] MEDS: INSULIN GLARGINE 100 UNIT/ML SUBCUT SCH (09:09)
[2019-11-25] MEDS: ENOXAPARIN 30 MG/0.3 ML SYRINGE SUBCUT SCH (09:10)
[2019-11-25] MEDS: amLODIPine 10 MG TABLET PO SCH (09:10)
[2019-11-25] MEDS: ASPIRIN CHEW 81 MG TABLET PO SCH (09:10)
[2019-11-25] MEDS: carvediloL 25 MG TABLET PO SCH ×2 (09:10→20:49)
[2019-11-25] MEDS: ZINC GLUCONATE 50 MG TABLET PO SCH (09:10)
[2019-11-25] MEDS: SODIUM CHLORIDE 1 GM TABLET PO SCH ×3 (09:10→20:49)
[2019-11-25] MEDS: ASCORBIC ACID 500 MG TABLET PO SCH ×3 (09:10→20:49)
[2019-11-25] MEDS: PANTOPRAZOLE 40 MG VIAL IV SCH ×2 (09:11→20:48)
[2019-11-25] MEDS: cloNIDine 0.1 MG TABLET PO SCH ×2 (09:11→20:48)
[2019-11-25] MEDS: AMIODARONE 200 MG TABLET PO SCH (09:11)
[2019-11-25] MEDS: levETIRAcetam LIQUID 100 MG/ML 30 ML/BOTTLE PER TUBE SCH ×2 (09:12→20:48)
[2019-11-25] MEDS: COLLAGENASE OINT 30 GM TUBE TOP SCH (09:12)
[2019-11-25] MEDS: MENTHOL/ZINC OXIDE OINT 71 GM JAR TOP SCH ×2 (09:12→21:25)
[2019-11-25] MEDS: MORPHINE 4 MG/1 ML VIAL IV PRN ×3 (10:55→21:00)
[2019-11-25] MEDS: CEFEPIME 1,000 MG in SODIUM CHLORIDE 0.9% 100 ML IV SCH (13:56)
[2019-11-25] MEDS: GABAPENTIN 50 MG/ML 30 ML/BOTTLE PO SCH (21:25)
[2019-11-26] MEDS: INSULIN LISPRO 100 UNIT/ML SUBCUT SCH ×6 (00:27→21:26)
[2019-11-26 04:03] LABS: Basophils % 0.1 % (0.0-0.8); Hematocrit 23.1 VOL% (35.7-47.0); Hemoglobin 7.5 GM/DL (12.0-16.0); Immature Granulocytes % 1.2 %; Immature Granulocytes Absolute 0.16 #; Lymphocytes # 0.5 10*3/uL (1.4-4.0); Mean Corpuscular HGB Conc 32.5 GM/DL (32-36); Mean Corpuscular Volume 93.1 FL (87-102); Mean Platelet Volume 11.3 FL (9.6-12.0); Monocytes % 5.7 % (1.7-12.7); Platelet Count 103 T/CUMM (130-400); Red Blood Count 2.48 MC/CUMM (3.8-5.5); Red Cell Distribution Width 16.7 % (9.3-17.3); White Blood Count 13.1 T/CUMM (4-12)
[2019-11-26 04:18] LABS: Calcium 8.5 MG/DL (8.5-10.1); Osmolality,Calculated 293.5 MOS/KG (273-304)
[2019-11-26 04:23] LABS: ABG Base Excess -4.4 MMOL/L (-2.5-2.5); ABG HCO3 20.6 MMOL/L (20-26); ABG Oxygen Saturation 84.1 % (95-100); ABG PCO2 48.7 MM HG (35-48); ABG PH 7.272 (7.35-7.45); ABG PO2 56.3 MM HG (80-95); ABG TCO2 21.3 MMOL/L (23-27); Allen Test Positive; Pt O2 Delivery Device Ventilator
[2019-11-26 05:45] LABS: Band Neutrophils 8 % (0-10); Lymphocytes 4 % (20-55); Metamyelocytes 8 %; Nucleated Red Blood Cells 1 (0-5); Segmented Neutrophils 78 % (50-85); Total Cells Counted 100
[2019-11-26 05:46] LABS: Anisocytosis 1+; Hypochromasia Slight; Macrocytosis 1+; Platelet Estimate Decreased
[2019-11-26] MEDS: methylPREDNISolone SOD SUC 40 MG/1 ML VIAL IV SCH ×3 (06:02→21:28)
[2019-11-26] MEDS: ARFORMOTEROL 15 MCG/2 ML NEB RESP TX SCH ×2 (08:17→19:24)
[2019-11-26] MEDS: carvediloL 25 MG TABLET PO SCH ×2 (09:02→21:27)
[2019-11-26] MEDS: levETIRAcetam LIQUID 100 MG/ML 30 ML/BOTTLE PER TUBE SCH ×2 (09:03→21:27)
[2019-11-26] MEDS: INSULIN GLARGINE 100 UNIT/ML SUBCUT SCH (09:04)
[2019-11-26] MEDS: ENOXAPARIN 30 MG/0.3 ML SYRINGE SUBCUT SCH (09:05)
[2019-11-26] MEDS: amLODIPine 10 MG TABLET PO SCH (09:06)
[2019-11-26] MEDS: ASPIRIN CHEW 81 MG TABLET PO SCH (09:06)
[2019-11-26] MEDS: SODIUM CHLORIDE 1 GM TABLET PO SCH ×3 (09:06→21:27)
[2019-11-26] MEDS: ASCORBIC ACID 500 MG TABLET PO SCH ×3 (09:06→21:27)
[2019-11-26] MEDS: ZINC GLUCONATE 50 MG TABLET PO SCH (09:06)
[2019-11-26] MEDS: cloNIDine 0.1 MG TABLET PO SCH ×2 (09:06→21:27)
[2019-11-26] MEDS: PANTOPRAZOLE 40 MG VIAL IV SCH ×2 (09:06→21:27)
[2019-11-26] MEDS: AMIODARONE 200 MG TABLET PO SCH (09:06)
[2019-11-26] MEDS ORDERED: SKIN HEALING OINT (AQUAPHOR) 50 GM TUBE TOP PRN (10:37)
[2019-11-26] MEDS ORDERED: VANCOMYCIN INJ 750 MG in SODIUM CHLORIDE 0.9% 250 ML IV ONE (13:00)
[2019-11-26] MEDS: MENTHOL/ZINC OXIDE OINT 71 GM JAR TOP SCH ×2 (13:43→21:27)
[2019-11-26] MEDS: COLLAGENASE OINT 30 GM TUBE TOP SCH (13:43)
[2019-11-26] MEDS: CEFEPIME 1,000 MG in SODIUM CHLORIDE 0.9% 100 ML IV SCH (13:44)
[2019-11-26] MEDS: MORPHINE 4 MG/1 ML VIAL IV PRN (13:44)
[2019-11-26] MEDS: SODIUM CHLORIDE 0.9% 1,000 ML IV SCH (21:27)
[2019-11-26] MEDS: GABAPENTIN 50 MG/ML 30 ML/BOTTLE PO SCH (21:27)
[2019-11-27] MEDS: INSULIN LISPRO 100 UNIT/ML SUBCUT SCH ×7 (00:50→23:59)
[2019-11-27 04:38] LABS: Allen Test Positive; Pt O2 Delivery Device Ventilator
[2019-11-27 05:02] LABS: Basophils % 0.1 % (0.0-0.8); Hematocrit 23.5 VOL% (35.7-47.0); Hemoglobin 7.6 GM/DL (12.0-16.0); Immature Granulocytes % 1.6 %; Immature Granulocytes Absolute 0.15 #; Lymphocytes # 0.4 10*3/uL (1.4-4.0); Mean Corpuscular HGB Conc 32.3 GM/DL (32-36); Mean Corpuscular Volume 93.3 FL (87-102); Mean Platelet Volume 11.7 FL (9.6-12.0); Monocytes % 5.4 % (1.7-12.7); Neutrophils % 88.9 % (38.7-73.9); Platelet Count 85 T/CUMM (130-400); Red Blood Count 2.52 MC/CUMM (3.8-5.5); Red Cell Distribution Width 17.2 % (9.3-17.3); White Blood Count 9.6 T/CUMM (4-12)
[2019-11-27 05:13] LABS: ABG Base Excess -2.4 MMOL/L (-2.5-2.5); ABG HCO3 22.2 MMOL/L (20-26); ABG Oxygen Saturation 87.5 % (95-100); ABG PCO2 43.4 MM HG (35-48); ABG PH 7.337 (7.35-7.45); ABG PO2 58.1 MM HG (80-95); ABG TCO2 21.8 MMOL/L (23-27)
[2019-11-27 05:15] LABS: Calcium 8.3 MG/DL (8.5-10.1); Osmolality,Calculated 295.1 MOS/KG (273-304)
[2019-11-27] MEDS: methylPREDNISolone SOD SUC 40 MG/1 ML VIAL IV SCH ×3 (06:13→22:40)
[2019-11-27 06:22] LABS: Band Neutrophils 10 % (0-10); Eosinophils 1 % (0-10); Hypochromasia 1+; Lymphocytes 2 % (20-55); Platelet Estimate Decreased; Segmented Neutrophils 85 % (50-85); Total Cells Counted 100
[2019-11-27] MEDS: PANTOPRAZOLE 40 MG VIAL IV SCH ×2 (09:15→20:03)
[2019-11-27] MEDS: ENOXAPARIN 30 MG/0.3 ML SYRINGE SUBCUT SCH (09:15)
[2019-11-27] MEDS: INSULIN GLARGINE 100 UNIT/ML SUBCUT SCH (09:16)
[2019-11-27] MEDS: ASCORBIC ACID 500 MG TABLET PO SCH ×3 (10:18→20:03)
[2019-11-27] MEDS: SODIUM CHLORIDE 1 GM TABLET PO SCH ×3 (10:18→20:03)
[2019-11-27] MEDS: cloNIDine 0.1 MG TABLET PO SCH ×2 (10:18→20:03)
[2019-11-27] MEDS: levETIRAcetam LIQUID 100 MG/ML 30 ML/BOTTLE PER TUBE SCH ×2 (10:18→20:02)
[2019-11-27] MEDS: AMIODARONE 200 MG TABLET PO SCH (10:19)
[2019-11-27] MEDS: ZINC GLUCONATE 50 MG TABLET PO SCH (10:19)
[2019-11-27] MEDS: amLODIPine 10 MG TABLET PO SCH (10:20)
[2019-11-27] MEDS: carvediloL 25 MG TABLET PO SCH ×2 (10:20→20:03)
[2019-11-27] MEDS: ASPIRIN CHEW 81 MG TABLET PO SCH (10:20)
[2019-11-27] MEDS: ARFORMOTEROL 15 MCG/2 ML NEB RESP TX SCH ×2 (10:26→19:30)
[2019-11-27] MEDS: CEFEPIME 1,000 MG in SODIUM CHLORIDE 0.9% 100 ML IV SCH (14:11)
[2019-11-27] MEDS: MENTHOL/ZINC OXIDE OINT 71 GM JAR TOP SCH ×2 (16:15→20:04)
[2019-11-27] MEDS: COLLAGENASE OINT 30 GM TUBE TOP SCH (16:15)
[2019-11-27] MEDS: GABAPENTIN 50 MG/ML 30 ML/BOTTLE PO SCH (20:04)
[2019-11-27] MEDS: MORPHINE 4 MG/1 ML VIAL IV PRN ×2 (20:32→23:59)
[2019-11-27] MEDS: SODIUM CHLORIDE 0.9% 1,000 ML IV SCH (21:05)
[2019-11-28 04:25] LABS: Basophils % 0.1 % (0.0-0.8); Hematocrit 21.4 VOL% (35.7-47.0); Hemoglobin 6.8 GM/DL (12.0-16.0); Immature Granulocytes % 1.2 %; Lymphocytes # 0.3 10*3/uL (1.4-4.0); Lymphocytes % 3.1 % (21.3-54.2); Mean Corpuscular HGB Conc 31.8 GM/DL (32-36); Mean Corpuscular Volume 93.9 FL (87-102); Mean Platelet Volume 11.9 FL (9.6-12.0); Monocytes % 4.9 % (1.7-12.7); NRBC # 0.02 10*3/uL; Neutrophils % 90.7 % (38.7-73.9); Red Blood Count 2.28 MC/CUMM (3.8-5.5); White Blood Count 8.7 T/CUMM (4-12)
[2019-11-28 04:27] LABS: Platelet Count 86 T/CUMM (130-400)
[2019-11-28 04:34] LABS: ABG Base Excess -4.9 MMOL/L (-2.5-2.5); ABG HCO3 22.4 MMOL/L (20-26); ABG PCO2 53.6 MM HG (35-48); ABG PH 7.238 (7.35-7.45); ABG PO2 76.1 MM HG (80-95); Allen Test Positive; Pt O2 Delivery Device Ventilator
[2019-11-28 04:40] LABS: Calcium 8.8 MG/DL (8.5-10.1); Osmolality,Calculated 292.2 MOS/KG (273-304)
[2019-11-28 04:52] LABS: Band Neutrophils 6 % (0-10); Lymphocytes 3 % (20-55); Metamyelocytes 3 %; Segmented Neutrophils 85 % (50-85); Total Cells Counted 100
[2019-11-28 04:53] LABS: Hypochromasia 1+; Platelet Estimate Decreased; Tear Drop Cells Few
[2019-11-28] MEDS: INSULIN LISPRO 100 UNIT/ML SUBCUT SCH ×5 (04:56→20:45)
[2019-11-28] MEDS: methylPREDNISolone SOD SUC 40 MG/1 ML VIAL IV SCH ×3 (05:04→21:01)
[2019-11-28] MEDS: ARFORMOTEROL 15 MCG/2 ML NEB RESP TX SCH ×2 (07:25→19:50)
[2019-11-28] MEDS: INSULIN GLARGINE 100 UNIT/ML SUBCUT SCH (09:24)
[2019-11-28] MEDS: ASCORBIC ACID 500 MG TABLET PO SCH ×3 (09:25→20:31)
[2019-11-28] MEDS: ZINC GLUCONATE 50 MG TABLET PO SCH (09:25)
[2019-11-28] MEDS: ASPIRIN CHEW 81 MG TABLET PO SCH (09:26)
[2019-11-28] MEDS: SODIUM CHLORIDE 1 GM TABLET PO SCH ×3 (09:26→20:31)
[2019-11-28] MEDS: ENOXAPARIN 30 MG/0.3 ML SYRINGE SUBCUT SCH (09:27)
[2019-11-28] MEDS: PANTOPRAZOLE 40 MG VIAL IV SCH ×2 (09:28→20:34)
[2019-11-28] MEDS: cloNIDine 0.1 MG TABLET PO SCH ×2 (09:32→20:31)
[2019-11-28] MEDS: levETIRAcetam LIQUID 100 MG/ML 30 ML/BOTTLE PER TUBE SCH ×2 (09:34→20:47)
[2019-11-28] MEDS: COLLAGENASE OINT 30 GM TUBE TOP SCH (09:35)
[2019-11-28] MEDS: MENTHOL/ZINC OXIDE OINT 71 GM JAR TOP SCH ×2 (09:35→20:47)
[2019-11-28] MEDS: AMIODARONE 200 MG TABLET PO SCH (09:39)
[2019-11-28] MEDS: carvediloL 25 MG TABLET PO SCH ×2 (09:39→20:32)
[2019-11-28] MEDS: amLODIPine 10 MG TABLET PO SCH (09:40)
[2019-11-28] MEDS ORDERED: levETIRAcetam LIQUID 100 MG/ML 30 ML/BOTTLE PER TUBE ONE (10:05)
[2019-11-28] MEDS: LORazepam 2 MG/1 ML VIAL IV PRN ×2 (10:25→15:12)
[2019-11-28] MEDS: CEFEPIME 1,000 MG in SODIUM CHLORIDE 0.9% 100 ML IV SCH (15:13)
[2019-11-28] MEDS ORDERED: VANCOMYCIN INJ 750 MG in SODIUM CHLORIDE 0.9% 250 ML IV ONE (17:00)
[2019-11-28] MEDS: GABAPENTIN 50 MG/ML 30 ML/BOTTLE PO SCH (20:47)
[2019-11-28] MEDS: SODIUM CHLORIDE 0.9% 1,000 ML IV SCH (22:19)
[2019-11-29] MEDS: INSULIN LISPRO 100 UNIT/ML SUBCUT SCH ×6 (00:32→21:58)
[2019-11-29 03:36] LABS: ABG Base Excess -2.5 MMOL/L (-2.5-2.5); ABG HCO3 22.6 MMOL/L (20-26); ABG Oxygen Saturation 83.8 % (95-100); ABG TCO2 23.8 MMOL/L (23-27); Allen Test Positive; Pt O2 Delivery Device Ventilator
[2019-11-29 04:17] LABS: Basophils % 0.1 % (0.0-0.8); Eosinophils % 0.1 % (0.00-10.9); Hematocrit 27.7 VOL% (35.7-47.0); Immature Granulocytes % 1.5 %; Immature Granulocytes Absolute 0.14 #; Lymphocytes # 0.4 10*3/uL (1.4-4.0); Lymphocytes % 4.6 % (21.3-54.2); Mean Corpuscular HGB Conc 33.6 GM/DL (32-36); Mean Platelet Volume 11.9 FL (9.6-12.0); Monocytes % 5.2 % (1.7-12.7); NRBC # 0.03 10*3/uL; Neutrophils % 88.5 % (38.7-73.9); Platelet Count 96 T/CUMM (130-400); Red Blood Count 3.01 MC/CUMM (3.8-5.5); Red Cell Distribution Width 17.2 % (9.3-17.3); White Blood Count 9.5 T/CUMM (4-12)
[2019-11-29 04:18] LABS: Hemoglobin 9.3 GM/DL (12.0-16.0)
[2019-11-29 04:29] LABS: Calcium 8.6 MG/DL (8.5-10.1); Osmolality,Calculated 290.1 MOS/KG (273-304)
[2019-11-29 04:40] LABS: Band Neutrophils 1 % (0-10); Hypochromasia Slight; Lymphocytes 6 % (20-55); Platelet Estimate Decreased; Segmented Neutrophils 91 % (50-85); Total Cells Counted 100
[2019-11-29] MEDS: methylPREDNISolone SOD SUC 40 MG/1 ML VIAL IV SCH ×3 (05:25→21:54)
[2019-11-29] MEDS: hydrALAZINE 20 MG/1 ML VIAL IV PRN (05:27)
[2019-11-29] MEDS: ARFORMOTEROL 15 MCG/2 ML NEB RESP TX SCH ×2 (08:05→19:59)
[2019-11-29] MEDS: INSULIN GLARGINE 100 UNIT/ML SUBCUT SCH (08:25)
[2019-11-29] MEDS: PANTOPRAZOLE 40 MG VIAL IV SCH ×2 (08:25→21:56)
[2019-11-29] MEDS: SODIUM CHLORIDE 1 GM TABLET PO SCH ×3 (08:26→21:53)
[2019-11-29] MEDS: cloNIDine 0.1 MG TABLET PO SCH ×2 (08:26→21:53)
[2019-11-29] MEDS: ZINC GLUCONATE 50 MG TABLET PO SCH (08:27)
[2019-11-29] MEDS: ASPIRIN CHEW 81 MG TABLET PO SCH (08:27)
[2019-11-29] MEDS: ASCORBIC ACID 500 MG TABLET PO SCH ×3 (08:27→21:53)
[2019-11-29] MEDS: amLODIPine 10 MG TABLET PO SCH (08:27)
[2019-11-29] MEDS: AMIODARONE 200 MG TABLET PO SCH (08:27)
[2019-11-29] MEDS: carvediloL 25 MG TABLET PO SCH ×2 (08:27→21:53)
[2019-11-29] MEDS: levETIRAcetam LIQUID 100 MG/ML 30 ML/BOTTLE PER TUBE SCH ×2 (08:40→22:36)
[2019-11-29] MEDS: MENTHOL/ZINC OXIDE OINT 71 GM JAR TOP SCH ×2 (08:50→22:35)
[2019-11-29] MEDS: COLLAGENASE OINT 30 GM TUBE TOP SCH (08:50)
[2019-11-29] MEDS: CEFEPIME 1,000 MG in SODIUM CHLORIDE 0.9% 100 ML IV SCH (14:17)
[2019-11-29] MEDS: GABAPENTIN 50 MG/ML 30 ML/BOTTLE PO SCH (22:37)
[2019-11-29] MEDS: SODIUM CHLORIDE 0.9% 1,000 ML IV SCH (22:40)
[2019-11-30] MEDS: INSULIN LISPRO 100 UNIT/ML SUBCUT SCH ×6 (01:09→20:31)
[2019-11-30 03:30] LABS: ABG Base Excess -4.2 MMOL/L (-2.5-2.5); ABG HCO3 21.7 MMOL/L (20-26); ABG Oxygen Saturation 86.6 % (95-100); ABG PCO2 42.7 MM HG (35-48); ABG PH 7.323 (7.35-7.45); ABG PO2 58.4 MM HG (80-95); Allen Test Positive; Pt O2 Delivery Device Ventilator
[2019-11-30 04:34] LABS: Basophils % 0.1 % (0.0-0.8); Hemoglobin 8.5 GM/DL (12.0-16.0); Immature Granulocytes % 2.3 %; Immature Granulocytes Absolute 0.22 #; Lymphocytes # 0.4 10*3/uL (1.4-4.0); Lymphocytes % 4.2 % (21.3-54.2); Mean Corpuscular HGB Conc 32.7 GM/DL (32-36); Mean Corpuscular Volume 92.9 FL (87-102); Mean Platelet Volume 11.7 FL (9.6-12.0); Monocytes % 5.2 % (1.7-12.7); NRBC # 0.03 10*3/uL; Neutrophils % 88.2 % (38.7-73.9); Platelet Count 95 T/CUMM (130-400); Red Cell Distribution Width 17.2 % (9.3-17.3); White Blood Count 9.8 T/CUMM (4-12)
[2019-11-30 04:37] LABS: Calcium 8.8 MG/DL (8.5-10.1)
[2019-11-30 04:55] LABS: Band Neutrophils 4 % (0-10); Hypochromasia 2+; Lymphocytes 6 % (20-55); Platelet Estimate Decreased; Segmented Neutrophils 84 % (50-85); Total Cells Counted 100
[2019-11-30] MEDS: methylPREDNISolone SOD SUC 40 MG/1 ML VIAL IV SCH ×2 (05:27→11:18)
[2019-11-30] MEDS: ARFORMOTEROL 15 MCG/2 ML NEB RESP TX SCH ×2 (07:17→19:30)
[2019-11-30] MEDS: INSULIN GLARGINE 100 UNIT/ML SUBCUT SCH (09:21)
[2019-11-30] MEDS: ASCORBIC ACID 500 MG TABLET PO SCH ×3 (09:22→21:31)
[2019-11-30] MEDS: ZINC GLUCONATE 50 MG TABLET PO SCH (09:22)
[2019-11-30] MEDS: SODIUM CHLORIDE 1 GM TABLET PO SCH ×3 (09:22→21:31)
[2019-11-30] MEDS: ASPIRIN CHEW 81 MG TABLET PO SCH (09:31)
[2019-11-30] MEDS: cloNIDine 0.1 MG TABLET PO SCH ×2 (09:31→21:48)
[2019-11-30] MEDS: AMIODARONE 200 MG TABLET PO SCH (09:31)
[2019-11-30] MEDS: carvediloL 25 MG TABLET PO SCH ×2 (09:31→21:48)
[2019-11-30] MEDS: amLODIPine 10 MG TABLET PO SCH (09:31)
[2019-11-30] MEDS: PANTOPRAZOLE 40 MG VIAL IV SCH (09:32)
[2019-11-30] MEDS: levETIRAcetam LIQUID 100 MG/ML 30 ML/BOTTLE PER TUBE SCH ×2 (09:32→21:31)
[2019-11-30] MEDS: COLLAGENASE OINT 30 GM TUBE TOP SCH (09:46)
[2019-11-30] MEDS: MENTHOL/ZINC OXIDE OINT 71 GM JAR TOP SCH ×2 (09:46→21:31)
[2019-11-30] MEDS: MORPHINE 4 MG/1 ML VIAL IV PRN ×2 (11:18→20:32)
[2019-11-30] MEDS: CEFEPIME 1,000 MG in SODIUM CHLORIDE 0.9% 100 ML IV SCH (15:30)
[2019-11-30] MEDS: GABAPENTIN 50 MG/ML 30 ML/BOTTLE PO SCH (21:48)
[2019-12-01] MEDS: INSULIN LISPRO 100 UNIT/ML SUBCUT SCH ×4 (00:21→12:19)
[2019-12-01] MEDS: methylPREDNISolone SOD SUC 40 MG/1 ML VIAL IV SCH ×2 (00:22→12:45)
[2019-12-01] MEDS: MORPHINE 4 MG/1 ML VIAL IV PRN (03:34)
[2019-12-01 04:44] LABS: Allen Test Positive; Pt O2 Delivery Device Ventilator
[2019-12-01 04:46] LABS: ABG Base Excess -6.1 MMOL/L (-2.5-2.5); ABG HCO3 21.8 MMOL/L (20-26); ABG Oxygen Saturation 93.6 % (95-100); ABG PCO2 57.6 MM HG (35-48); ABG PO2 86.4 MM HG (80-95); ABG TCO2 23.6 MMOL/L (23-27)
[2019-12-01 04:50] LABS: ABG PH 7.196 (7.35-7.45)
[2019-12-01 05:23] LABS: Basophils % 0.1 % (0.0-0.8); Eosinophils % 0.1 % (0.00-10.9); Hematocrit 23.1 VOL% (35.7-47.0); Hemoglobin 7.6 GM/DL (12.0-16.0); Immature Granulocytes Absolute 0.16 #; Lymphocytes # 0.3 10*3/uL (1.4-4.0); Lymphocytes % 3.7 % (21.3-54.2); Mean Corpuscular HGB Conc 32.9 GM/DL (32-36); Mean Corpuscular Volume 93.9 FL (87-102); Mean Platelet Volume 11.6 FL (9.6-12.0); Monocytes % 6.7 % (1.7-12.7); NRBC # 0.03 10*3/uL; Neutrophils % 87.4 % (38.7-73.9); Platelet Count 77 T/CUMM (130-400); Red Blood Count 2.46 MC/CUMM (3.8-5.5); Red Cell Distribution Width 17.3 % (9.3-17.3); White Blood Count 8.1 T/CUMM (4-12)
[2019-12-01 05:33] LABS: Calcium 8.7 MG/DL (8.5-10.1); Osmolality,Calculated 301.1 MOS/KG (273-304)
[2019-12-01 05:47] LABS: Band Neutrophils 6 % (0-10); Hypochromasia 2+; Lymphocytes 5 % (20-55); Microcytosis Slight; Nucleated Red Blood Cells 1 (0-5); Platelet Estimate Decreased; Segmented Neutrophils 87 % (50-85); Total Cells Counted 100
[2019-12-01 06:25] VITALS: BP 109/53
[2019-12-01] MEDS: ARFORMOTEROL 15 MCG/2 ML NEB RESP TX SCH (07:07)
[2019-12-01] MEDS: ALBUMIN 25% 25 GM in PREMIX 1 EACH IV PRN ×2 (08:50→09:50)
[2019-12-01] MEDS: amLODIPine 10 MG TABLET PO SCH (09:00)
[2019-12-01] MEDS: cloNIDine 0.1 MG TABLET PO SCH (09:00)
[2019-12-01] MEDS ORDERED: PANTOPRAZOLE 40 MG VIAL IV SCH (09:00)
[2019-12-01] MEDS: COLLAGENASE OINT 30 GM TUBE TOP SCH (10:26)
[2019-12-01] MEDS: carvediloL 25 MG TABLET PO SCH (10:26)
[2019-12-01] MEDS: MENTHOL/ZINC OXIDE OINT 71 GM JAR TOP SCH (10:26)
[2019-12-01] MEDS: AMIODARONE 200 MG TABLET PO SCH (10:26)
[2019-12-01] MEDS: ASPIRIN CHEW 81 MG TABLET PO SCH (10:27)
[2019-12-01] MEDS: ASCORBIC ACID 500 MG TABLET PO SCH (10:27)
[2019-12-01] MEDS: SODIUM CHLORIDE 1 GM TABLET PO SCH (10:27)
[2019-12-01] MEDS: ZINC GLUCONATE 50 MG TABLET PO SCH (10:27)
[2019-12-01] MEDS: levETIRAcetam LIQUID 100 MG/ML 30 ML/BOTTLE PER TUBE SCH (10:28)
[2019-12-01] MEDS: INSULIN GLARGINE 100 UNIT/ML SUBCUT SCH (10:29)
[2019-12-01 19:46] LABS: HIT Interpretation Negative (Negative)
== END 2019-12-01 14:26 | DRG 4 ==
LOC: N.ED 11:15 → SUATTDRO 15:59 → N.EDINP 15:59 → N.TELEN 17:26 → N.2E 17:45 → N.CC 10-01 11:58 → N.ICU 11-27 22:24
PROVIDERS: ADMIT Hospitalist; ATTEND Internal Medicine
PROC: EGDWPEG (ICD-10-PCS; 2019-11-10 11:05)